=== PATIENT | female | born 1975 | race Caucasian/White ===

== ENCOUNTER 2020-11-19 17:44 | Emergency (ER) | payer OTHER, SELFPAY ==
--- NOTE | ~2020-11-19 | XR_ITS ---
EXAMINATION: XR thoracic spine 3V EXAM DATE: 11/19/2020 19:08 INDICATION: Mid back pain. TECHNIQUE: Frontal and lateral projections of the chest obtained and reviewed. There is no prior jan dy for comparison. FINDINGS: There is mild thoracic disc disease. The vertebral bodies are aligned in the AP dimension. Vertebral body and disc heights are well-maintained. There are no bony erosions identified. There ar e no acute fractures identified. Paraspinal soft tissue is unremarkable. IMPRESSION: Mild thoracic disc disease. No acute findings. Reviewed, dictated and finalized at location A. DENT SERVICES SUPERVISOR
[2020-11-19 17:55] VITALS: BP 125/83; PULSE 70; RESP 20; TEMP 36.6; O2SAT 100
--- NOTE | 2020-11-19 18:13 | ED.BACK ---
HPI - Back Pain/Injury General Chief Complaint: Back Pain/Injury Stated Complaint: back pain Time Seen by Provider: 11/19/20 18:13 Source: patient Mode of arrival: ambulatory Limitations: no limitations History of Present Illness HPI Narrative: 45-year-old woman comes in today complaining of back pain that started this afternoon while she was full doing and putting wet clothes. She denies any recent falls or injuries. She states the pain is more on the left and is worse with taking a deep breath, coughing and with movement. Patient states that she has a history of low back pain but no history of back surgery. She denies any numbness or tingling and has had no fever, nausea, vomiting, cough or cold symptoms, dysuria, hematuria, abdominal pain or chest pain. MD elicited complaint: back pain Pertinent past history: prior back pain Onset (ago): hour(s) (6) Timing: constant Severity: severe Similar Symptoms Previously: No Quality: sharp and aching Location: thoracic spine Radiation: none Exacerbating factors: movement, deep breaths and coughing/sneezing Related Data Home Medications Medication Instructions Recorded Confirmed aspirin 81 mg PO DAILY 09/29/19 11/19/20 atorvastatin 20 mg PO DAILY 09/29/19 11/19/20 clopidogrel [Plavix] 75 mg PO DAILY 09/29/19 11/19/20 nitroglycerin 0.4 mg SUBLINGUAL Q5M PRN 09/29/19 11/19/20 pantoprazole 40 mg PO QAM 09/29/19 11/19/20 tramadol 50 mg PO Q6H PRN 09/29/19 11/19/20 albuterol sulfate 1 - 2 puff INHALATION QID 11/19/20 11/19/20 amlodipine 10 mg PO DAILY 11/19/20 11/19/20 fluoxetine 40 mg PO DAILY 11/19/20 11/19/20 Allergies Allergy/AdvReac Type Severity Reaction Status Date / Time No Known Allergies Allergy Unverified 06/11/18 10:57 Review of Systems Constitutional: Constitutional: Denies chills and Denies fever(s) ENT: Denies nasal congestion and Denies sore throat Cardiovascular: Cardiovascular: Reports chest pain and Reports radiating jaw, neck or arm pain Respiratory: Respiratory: Denies cough, Denies dyspnea and Denies wheezing Gastrointestinal: Gastrointestinal: Denies abdominal pain, Reports constipation, Denies nausea and Denies vomiting Genitourinary: Genitourinary: Denies nocturia and Denies dysuria Musculoskeletal: Musculoskeletal: Reports back pain, Denies arthralgias and Denies joint swelling Integumentary/Breasts: Skin/Breast: Denies pruritus, Denies erythema and Denies rash Neurologic: Denies vertigo, Denies dizziness and Denies syncope Hematologic/Lymphatic: Hematologic/Lymphatic: Denies easy bleeding and Denies easy bruising Allergic/Immunologic: Allergic/Immunologic: Denies lip swelling and Denies throat swelling PMFSH Past Medical History Medical History CAD (coronary artery disease) Dyslipidemia Hypertension Surgical History Surgical History History of coronary artery stent placement Social History Social History Smoking status: Current every day smoker Alcohol intake: never Substance use: never Exam Const: General: alert Nutritional Appearance: obese Orientation/consciousness: patient oriented x3 Other: Moderate to severe acute distress. HENMT: Throat: posterior oropharynx normal Eyes: Conjunctivae: conjunctivae normal Pupils: Equal, round and reactive pupils present EOM: EOMs intact bilaterally Resp: Effort & Inspection: normal respiratory effort and not labored Auscultation: no rales, no rhonchi and no wheezes Cardio: Rate: regular rate Rhythm: regular rhythm Heart sounds: no murmurs GI: Inspection: non-distended Auscultation: normal bowel sounds Other: nontender Skin: General skin exam: normal color, no jaundice and no pallor Rashes: no rashes Neuro: General: patient oriented x3, moves all extremities, no focal motor deficits and CN's II-X
[2020-11-19] MEDS: ONDANSETRON INJ 4 MG/2 ML VIAL IV PUSH (18:39)
[2020-11-19] MEDS: HYDROmorphone HCL INJ (*CRX) 2 MG/ML VIAL 0.5 MG IV PUSH (18:39)
[2020-11-19 19:26] LABS: Add Urine Microscopic? NO; Appearance Urine Clear (Clear); Bilirubin Urine Negative (Negative); Blood Urine Negative (Negative); Color Urine Yellow (Yellow); Glucose Urine UA Negative (Negative); Ketones Urine Negative (Negative); Leukocyte Esterase Ur Negative (Negative); Nitrate Urine Negative (Negative); Protein Urine Negative (Negative); pH Urine 6.5 (5.0-8.0)
[2020-11-19 19:43] VITALS: BP 119/91; PULSE 82; RESP 20; TEMP 36.6; O2SAT 97
== END 2020-11-19 19:52 | disposition home or self-care (01) ==
PROVIDERS: Emergency Provider Emergency Medicine; PCP Family Medicine
DX: M54.6 Pain in thoracic spine (principal)
CPT/HCPCS: 72072; 81003; 96374; 96375; 99283; 99284; J1170; J2405

== ENCOUNTER 2021-01-03 04:51 | Emergency (ER) | payer OTHER, SELFPAY ==
--- NOTE | ~2021-01-03 | XR_ITS ---
EXAMINATION: XR chest 1V portable INDICATION: Chest pain TECHNIQUE: Portable AP chest at 0600 hours COMPARISON: 09/29/2019 FINDINGS: The lungs are free of acute opacities. There is no pleural effusion or pneumothorax. The ca rdiomediastinal silhouette is normal. IMPRESSION: 1. No acute cardiopulmonary abnormality. Reviewed, dictated and finalized at location A. GRATED MARKETING SPECIALIST
--- NOTE | 2021-01-03 04:53 | ECG_ITS ---
Measurements Intervals [place] Rate: 67 P: 40 VT: 162 QRS: 22 QRSD: 92 T: 39 QT: 404 QTc: 427 Interpretive Statements SINUS RHYTHM BASELINE ARTIFACT- I, III, AVL, AVF, V4 NORMAL ECG Electronically Signed On 01-03-2021 8:05:38 MUTUAL FUND ANALYST by Akhil Wasserman D.O.
[2021-01-03 05:00] VITALS: BP 109/73; PULSE 69; RESP 20; TEMP 36.3; O2SAT 96
--- NOTE | 2021-01-03 05:23 | ED.CHESTPAIN ---
HPI - Chest Pain General Chief Complaint: Chest Pain Stated Complaint: chest pain Source: patient Mode of arrival: EMS Limitations: no limitations History of Present Illness HPI narrative: Pt woke up around 3 am with chest pain. She got up and tried nitro and baking soda and milk and none of those 3 helped the pain. She hasnt had n/v/diaphorsis. SHe has been having some SOB for last 2-3 days. She also had some diarrhea yesterday, but that is better now. SHe denies fevers or cough. she has had stents placed in the past. She tells me her angina was ore painful than this, and her current pain is more pressure in the mid chest. She does have some radiation of pain to her back. MD complaint: chest pain and chest heaviness Pertinent past history: coronary artery disease Onset (ago): hour(s) Timing of current episode: constant Prior episodes: Yes Onset: during rest Pain location: substernal Pain radiation: back and left shoulder Quality: heaviness Relieving factors: nothing Exacerbating factors: nothing Context: recent illness Treatment prior to arrival: aspirin and nitroglycerin Risk Factors Coronary artery disease risk factors: smoking history, hyperlipidemia and hypertension Thoracic aortic dissection risk factors: longstanding hypertension Related Data Home Medications Medication Instructions Recorded Confirmed aspirin 81 mg PO DAILY 09/29/19 01/03/21 atorvastatin 40 mg PO HS 09/29/19 01/03/21 clopidogrel [Plavix] 75 mg PO DAILY 09/29/19 01/03/21 nitroglycerin 0.4 mg SUBLINGUAL Q5M PRN 09/29/19 01/03/21 pantoprazole 40 mg PO QAM 09/29/19 01/03/21 albuterol sulfate 1 - 2 puff INHALATION QID PRN 11/19/20 01/03/21 amlodipine 10 mg PO DAILY 11/19/20 01/03/21 fluoxetine 40 mg PO DAILY 11/19/20 01/03/21 Allergies Allergy/AdvReac Type Severity Reaction Status Date / Time No Known Allergies Allergy Unverified 06/11/18 10:57 Review of Systems Constitutional: Constitutional: Reports no additional constitutional complaints Eyes: Eyes: Reports no additional eye complaints ENT: Reports system reviewed and no additional complaints, except as documented Cardiovascular: Cardiovascular: Reports chest pain, Denies rapid heart rate, Reports radiating jaw, neck or arm pain and Denies slow heart rate Respiratory: Respiratory: Reports no additional respiratory complaints, Denies chest congestion, Denies cough, Reports dyspnea and Denies wheezing Gastrointestinal: Gastrointestinal: Denies abdominal pain, Denies bloating, Denies constipation, Reports heartburn, Reports diarrhea, Denies nausea and Denies vomiting Genitourinary: Genitourinary: Reports no additional female genitourinary complaints Musculoskeletal: Musculoskeletal: Reports back pain, Denies myalgias, Denies arthralgias, Denies joint swelling and Denies muscle cramps Integumentary/Breasts: Skin/Breast: Denies breast pain, Denies breast mass, Denies pruritus, Denies erythema, Denies rash and Denies skin ulcer Neurologic: Reports system reviewed and no additional complaints, except as documented Psychiatric: Psychiatric: Reports no additional psychiatric complaints Endocrine: Endocrine: Reports no additional endocrine complaints and Reports as per HPI (pt is having a throid US on friday- pt unsure why) Hematologic/Lymphatic: Hematologic/Lymphatic: Reports no additional hematologic/lymphatic complaints Allergic/Immunologic: Allergic/Immunologic: Reports no additional allergic/immunologic complaints [facility] Past Medical History Medical History CAD (coronary artery disease) Dyslipidemia Hypertension Surgical History Surgical History H/O: hysterectomy History of coronary artery stent placement Hx of breast reduction, elective Social History Social History Smoking status: Current every day smoker
[2021-01-03 05:29] LABS: Basophils Absolute Auto 0.06 K/mm3 (0.00-0.10); Eosinophils Percent Auto 3.2 % (1.0-6.0); Hematocrit 35.5 % (35.0-49.0); Hemoglobin 11.8 g/dL (12.0-15.0); Immature Granulocyte Absolute 0.02 K/mm3 (0.00-0.00); Immature Granulocyte Percent A 0.3 % (0.0-0.0); Lymphocytes Absolute Auto 1.05 K/mm3 (1.10-4.50); Lymphocytes Percent Auto 16.9 % (18.0-42.0); Mean Corpuscular HGB Conc 33.2 g/dL (32.0-36.0); Mean Corpuscular Hemoglobin 28.6 pg (27.0-31.0); Monocytes Percent Auto 6.4 % (2.0-11.0); Neutrophils Absolute Auto 4.5 K/mm3 (1.7-7.2); Neutrophils Percent Auto 72.2 % (50.0-70.0); Platelet Count Result 165 K/mm3 (150-420); Red Blood Count 4.13 M/mm3 (4.20-5.40); Red Cell Distribution Width 12.4 % (11.6-14.4); White Blood Count 6.2 K/mm3 (4.8-10.8)
[2021-01-03 05:42] LABS: D Dimer 0.37 mg/L (0.19-0.50)
[2021-01-03 05:46] LABS: Alanine Aminotransferase 17 U/L (14-59); Albumin Level 3.1 g/dL (3.4-5.0); Alkaline Phosphatase 78 U/L (46-116); Anion Gap 5 mmol/L (8-16); Aspartate Amino Transferase 20 U/L (15-37); Bilirubin,Total 0.3 mg/dL (0.00-1.00); Blood Urea Nitrogen 9 mg/dL (7-18); Calcium 8.3 mg/dL (8.5-10.1); Carbon Dioxide 31 mmol/L (21-32); Chloride 104 mmol/L (98-108); Estimated CRCL calculation 96 ml/min; Estimated Glomerular Filt Rate > 60; Glucose 111 mg/dL (70-99); Osmolality Calculated 289 mOsm/kg (285-295); Potassium 3.3 mmol/L (3.5-5.1); Sodium 140 mmol/L (136-145); Troponin I 5.7 ng/L (0.00-60.4)
[2021-01-03 06:10] LABS: Add Urine Microscopic? NO; Appearance Urine Clear (Clear); Bilirubin Urine Negative (Negative); Blood Urine Negative (Negative); Color Urine Yellow (Yellow); Glucose Urine UA Negative (Negative); Ketones Urine Negative (Negative); Leukocyte Esterase Ur Negative LEU/UL (Negative); Nitrate Urine Negative (Negative); Protein Urine Negative (Negative); Urobilinogen Urine 0.2 mg/dL (0.2-1.0); pH Urine 6.5 (5.0-8.0)
[2021-01-03 06:28] VITALS: BP 96/65; PULSE 71; RESP 20; O2SAT 96
[2021-01-03 06:28] LABS: SARS-CoV-2 Ag Negative (Negative)
[2021-01-03] MEDS: POTASSIUM CHLORIDE 20 MEQ TABLET 40 MEQ PO (06:41)
--- NOTE | 2021-01-03 06:42 | PC.NURSE ---
pt. snoring upon entering room, no distress noted and easily awakened. Discussed test results c pt. and need for repeat troponin at 0800. Mon. shows SR c vss.
--- NOTE | 2021-01-03 07:11 | PC.NURSE ---
Report given to MARQUITA Gallo
--- NOTE | 2021-01-03 07:30 | PC.NURSE ---
REPORT RECEIVED FROM OFFGOING RN. PT IS SLEEPING QUIETLY IN ROOM 2. RN SPOKE WITH LIANG AND PROVIDED UPDATE ON PATIENT STATUS.
--- NOTE | 2021-01-03 08:24 | PC.NURSE ---
0803 patient fiance at bedside. lab contacted for troponin draw. pt is alert and oriented, answering all questions appropraitely. vital signs are stable. pt denies complaints. beverages provided.
[2021-01-03 08:32] LABS: Troponin I 4.1 ng/L (0.00-60.4)
[2021-01-03 08:45] VITALS: BP 103/67; PULSE 70; RESP 14; TEMP 36.6; O2SAT 100
--- NOTE | 2021-01-03 08:47 | ED.GENADULT ---
HPI - General Adult General Chief complaint: Chest Pain Stated complaint: chest pain Source: patient Mode of arrival: EMS Limitations: no limitations History of Present Illness HPI narrative: Annette presented to the ED with chest pain. Please see Dr. Holly's note for details. I resumed care at 0700. Related Data Home Medications Medication Instructions Recorded Confirmed aspirin 81 mg PO DAILY 09/29/19 01/03/21 atorvastatin 40 mg PO HS 09/29/19 01/03/21 clopidogrel [Plavix] 75 mg PO DAILY 09/29/19 01/03/21 nitroglycerin 0.4 mg SUBLINGUAL Q5M PRN 09/29/19 01/03/21 pantoprazole 40 mg PO QAM 09/29/19 01/03/21 albuterol sulfate 1 - 2 puff INHALATION QID PRN 11/19/20 01/03/21 amlodipine 10 mg PO DAILY 11/19/20 01/03/21 fluoxetine 40 mg PO DAILY 11/19/20 01/03/21 Allergies Allergy/AdvReac Type Severity Reaction Status Date / Time No Known Allergies Allergy Unverified 06/11/18 10:57 Review of Systems Constitutional: Constitutional: Reports no additional constitutional complaints Eyes: Eyes: Reports no additional eye complaints ENT: Reports system reviewed and no additional complaints, except as documented Cardiovascular: Comments: No CP, SOB or lightheadedness at this time. Respiratory: Respiratory: Reports no additional respiratory complaints Gastrointestinal: Gastrointestinal: Reports no additional gastrointestinal complaints Genitourinary: Genitourinary: Reports no additional female genitourinary complaints Musculoskeletal: Musculoskeletal: Reports no additional musculoskeletal complaints Integumentary/Breasts: Skin/Breast: Reports system reviewed and no additional complaints, except as docu Neurologic: Reports system reviewed and no additional complaints, except as documented Psychiatric: Psychiatric: Reports no additional psychiatric complaints Endocrine: Endocrine: Reports no additional endocrine complaints Hematologic/Lymphatic: Hematologic/Lymphatic: Reports no additional hematologic/lymphatic complaints Allergic/Immunologic: Allergic/Immunologic: Reports no additional allergic/immunologic complaints [facility] Past Medical History Medical History CAD (coronary artery disease) Dyslipidemia Hypertension Surgical History Surgical History H/O: hysterectomy History of coronary artery stent placement Hx of breast reduction, elective Social History Social History Smoking status: Current every day smoker Alcohol intake: never Substance use: never Exam Const: General: cooperative, healthy appearing, comfortable, no acute distress, well developed, alert, awake and Physically active; No confusion Orientation/consciousness: oriented to person, oriented to place, oriented to time and No confusion HENMT: Head: normal to inspection, normocephalic and atraumatic Ears: hearing grossly normal bilaterally and external ears normal General nose exam: Normal external nose present Eyes: General: appearance normal, both eyes and all related structures Periorbital: periorbital findings normal Sclera: sclerae normal Pupils: Equal, round and reactive pupils present Resp: Effort & Inspection: normal respiratory effort, able to speak in complete sentences and no respiratory distress Auscultation: clear to auscultation bilaterally Cardio: Jugular venous distension: no JVD Rate: regular rate Rhythm: regular rhythm Skin: General skin exam: normal color and no rashes or lesions noted Neuro: General: oriented to person, oriented to place, oriented to time and No confusion Cranial nerves: Yes Equal, round and reactive pupils present and No Normal hearing present Extrem: General: normal to inspection Course Course Emergency Course: Care resumed at 0700. Troponin returned and was wnl. She reported no chest pain, SOB or lightheadedness at th
== END 2021-01-03 08:50 | disposition home or self-care (01) ==
PROVIDERS: Emergency Provider Emergency Medicine
DX: R07.9 Chest pain, unspecified (principal); Z20.822 Contact with and (suspected) exposure to COVID-19
CPT/HCPCS: 36415; 71045; 80053; 81003; 84484; 85025; 85380; 87426; 93005; 99283; 99284; A9270; C9803

== ENCOUNTER 2022-10-05 11:50 | Emergency (ER) | payer OTHER, SELFPAY ==
[2022-10-05 12:36] VITALS: BP 131/66; PULSE 66; RESP 20; TEMP 36.6; O2SAT 100
--- NOTE | 2022-10-05 12:46 | PC.NURSE ---
personal items collected and placed in secure room.
[2022-10-05 12:53] LABS: Basophils Absolute Auto 0.04 K/mm3 (0.00-0.10); Basophils Percent Auto 0.7 % (0.0-1.0); Eosinophils Absolute Auto 0.18 K/mm3 (0.02-0.50); Eosinophils Percent Auto 3.3 % (1.0-6.0); Hematocrit 40.5 % (35.0-49.0); Hemoglobin 13.4 g/dL (12.0-15.0); Immature Granulocyte Absolute 0.02 K/mm3 (0.00-0.00); Immature Granulocyte Percent A 0.4 % (0.0-0.0); Lymphocytes Absolute Auto 1.81 K/mm3 (1.10-4.50); Lymphocytes Percent Auto 32.8 % (18.0-42.0); Mean Corpuscular HGB Conc 33.1 g/dL (32.0-36.0); Mean Corpuscular Hemoglobin 28.6 pg (27.0-31.0); Mean Corpuscular Volume 86.5 fL (78.0-102.0); Mean Platelet Volume 11.2 fl (9.2-11.8); Monocytes Percent Auto 7.2 % (2.0-11.0); Neutrophils Absolute Auto 3.1 K/mm3 (1.7-7.2); Neutrophils Percent Auto 55.6 % (50.0-70.0); Platelet Count Result 184 K/mm3 (150-420); Red Blood Count 4.68 M/mm3 (4.20-5.40); Red Cell Distribution Width 12.9 % (11.6-14.4); White Blood Count 5.5 K/mm3 (4.8-10.8)
--- NOTE | 2022-10-05 12:55 | ECG_ITS ---
Measurements Intervals [place] Rate: 66 P: 55 CO: 169 QRS: 53 QRSD: 86 T: 49 QT: 405 QTc: 425 Interpretive Statements SINUS RHYTHM NORMAL ECG COMPARED TO ECG 01/03/2021 04:58:01 NO SIGNIFICANT CHANGES Electronically Signed On 10-06-2022 8:44:50 UNDERGROUND REPAIRER by Issa Clark M.D.
[2022-10-05 13:07] LABS: Add Urine Microscopic? NO; Appearance Urine Clear (Clear); Bilirubin Urine Negative (Negative); Blood Urine Negative (Negative); Color Urine Light Yellow (Yellow); Glucose Urine UA Negative (Negative); Ketones Urine Negative (Negative); Leukocyte Esterase Ur Negative LEU/UL (Negative); Nitrate Urine Negative (Negative); Protein Urine Negative (Negative)
[2022-10-05 13:13] LABS: Amphetamine Screen Urine Negative (Negative); Barbiturate Screen Urine Negative (Negative); Benzodiazepines Screen Urine Negative (Negative); Cannabinoid Screen Urine Negative (Negative); Cocaine Screen Urine Negative (Negative); Methadone Screen Urine Negative (Negative); Opiate Screen Urine Negative (Negative); Phencyclidine Screen Urine Negative (Negative)
[2022-10-05 13:20] LABS: Alanine Aminotransferase 34 U/L (14-59); Albumin Level 3.7 g/dL (3.4-5.0); Alkaline Phosphatase 95 U/L (46-116); Anion Gap 5 mmol/L (8-16); Aspartate Amino Transferase 22 U/L (15-37); Bilirubin,Total 0.4 mg/dL (0.00-1.00); Blood Urea Nitrogen 6 mg/dL (7-18); Calcium 8.3 mg/dL (8.5-10.1); Carbon Dioxide 30 mmol/L (21-32); Chloride 108 mmol/L (98-108); Estimated CRCL calculation 89 ml/min; Estimated Glomerular Filt Rate > 60; Ethanol 3 mg/dL (0-6); Glucose 82 mg/dL (70-99); Osmolality Calculated 292 mOsm/kg (285-295); Potassium 3.7 mmol/L (3.5-5.1); Salicylate 3.2 mg/dL (2.8-20.0); Sodium 143 mmol/L (136-145); Thyroid Stimulating Hormone 1.33 uIU/mL (0.36-3.74); Total Protein 7.1 g/dL (6.4-8.2)
[2022-10-05 13:22] LABS: SARS-CoV-2 Ag Negative (Negative)
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
--- NOTE | 2022-10-05 14:08 | PC.NURSE ---
[id number] [facility] notified and on there way
--- NOTE | 2022-10-05 15:21 | PC.NURSE ---
1516 [facility] here for screening
--- NOTE | 2022-10-05 16:52 | PC.NURSE ---
[id number] packet faxed to [facility] for [facility]pt admission will wait to here for availability
--- NOTE | 2022-10-05 19:22 | PC.NURSE ---
1919 nurse to nurse report given to Royal rn pt sleeping and resting quietly
[2022-10-05 21:18] LABS: SARS-CoV-2 RNA PCR Negative (Negative)
[2022-10-05 22:00] VITALS: BP 115/88; PULSE 66; RESP 20; TEMP 36.7; O2SAT 100
== END 2022-10-05 22:58 ==
PROVIDERS: Emergency Provider Emergency Medicine; PCP Family Medicine
DX: R45.851 Suicidal ideations (principal); F41.9 Anxiety disorder, unspecified; F32.A Depression, unspecified; I25.10 Atherosclerotic heart disease of native coronary artery without angina pectoris; I10 Essential (primary) hypertension; E78.5 Hyperlipidemia, unspecified; Z95.5 Presence of coronary angioplasty implant and graft; F17.200 Nicotine dependence, unspecified, uncomplicated; Z79.02 Long term (current) use of antithrombotics/antiplatelets; Z79.51 Long term (current) use of inhaled steroids; Z20.822 Contact with and (suspected) exposure to COVID-19
CPT/HCPCS: 36415; 80053; 80307; 81003; 84443; 85025; 87426; 93005; 99285; C9803; U0003; U0005

== ENCOUNTER 2023-06-22 15:35 | Emergency (ER) | payer OTHER, SELFPAY ==
[2023-06-22] VITALS (18 sets, daily range): BP systolic 125–155; BP diastolic 79–98; PULSE 79–105; RESP 12–20; TEMP 36.4; O2SAT 93–100
--- NOTE | ~2023-06-22 | XR_ITS ---
EXAMINATION: XR chest 2V DATE: 06/22/2023 16:08 INDICATION: Shortness of breath and left-sided chest pain TECHNIQUE: PA and lateral views of the chest were obtained. COMPARISON: None FINDINGS: The lungs are clear with no focal airspace opacities, pulmonary edema, pleural effusion or pneumothor ax. The cardiomediastinal silhouette is normal. Visualized bones and soft tissues are unremarkable. IMPRESSION: 1. No acute cardiopulmonary disease. Reviewed, dictated and finalized at location A.
--- NOTE | 2023-06-22 15:47 | ED.CHESTPAIN ---
HPI - Chest Pain General Chief Complaint: Chest Pain Stated Complaint: chest pain Time Seen by Provider: 06/22/23 15:40 Source: patient Mode of arrival: ambulatory Limitations: no limitations History of Present Illness HPI narrative: 48 yo F with PMHx of CAD, s/p stent placement in 2017, and angiography last year with some additional mild blockage, GERD, presents to ED due to severe, right sided, chest pain for 3 days, a/w shortness of breath and nausea. The pain is rated at 8/10 and some times woke her up from sleep. 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 Onset (ago): day(s) Timing of current episode: constant Prior episodes: Yes Onset: during rest Pain location: substernal and right chest Pain radiation: none Severity: severe Pain scale (0-10): 8 Quality: heaviness Relieving factors: nothing Exacerbating factors: inspiration, movement and stress Associated symptoms: nausea, vomiting and dyspnea Treatment prior to arrival: aspirin and nitroglycerin Risk Factors Coronary artery disease risk factors: hyperlipidemia and hypertension Thoracic aortic dissection risk factors: none Related Data On Oral Contraceptives: No Home Medications Medication Instructions Recorded Confirmed atorvastatin 20 mg tablet 40 mg PO HS 09/29/19 10/05/22 clopidogrel 75 mg tablet (Plavix) 75 mg PO DAILY 09/29/19 10/05/22 nitroglycerin 0.4 mg sublingual 0.4 mg sublingual Q5M PRN Chest 09/29/19 10/05/22 tablet Pain pantoprazole 40 mg tablet,delayed 40 mg PO BID 09/29/19 10/05/22 release albuterol sulfate 90 mcg/actuation 1 - 2 puff inhalation QID PRN 11/19/20 10/05/22 aerosol inhaler Shortness Of Breath Or Wheezing amlodipine 10 mg tablet 10 mg PO DAILY 11/19/20 10/05/22 fluoxetine 10 mg capsule 10 mg PO DAILY 08/14/22 10/05/22 fluoxetine 40 mg capsule 80 mg PO DAILY 08/14/22 10/05/22 metoprolol succinate 25 mg 12.5 mg PO DAILY 08/14/22 10/05/22 tablet,extended release 24 hr famotidine 20 mg tablet 20 mg PO DAILY 10/05/22 10/05/22 Allergies Allergy/AdvReac Type Severity Reaction Status Date / Time No Known Allergies Allergy Verified 10/05/22 19:13 Review of Systems Constitutional: Constitutional: Reports as per HPI and Reports no additional constitutional complaints Eyes: Eyes: Reports as per HPI and Reports no additional eye complaints ENT: Reports system reviewed and no additional complaints, except as documented and Reports as per HPI Cardiovascular: Cardiovascular: Reports as per HPI and Reports no additional cardiovascular complaints Respiratory: Respiratory: Reports as per HPI and Reports no additional respiratory complaints Gastrointestinal: Gastrointestinal: Reports as per HPI and Reports no additional gastrointestinal complaints Genitourinary: Genitourinary: Reports as per HPI Musculoskeletal: Musculoskeletal: Reports no additional musculoskeletal complaints and Reports as per HPI Integumentary/Breasts: Skin/Breast: Reports system reviewed and no additional complaints, except as docu and Reports as per HPI Neurologic: Reports system reviewed and no additional complaints, except as documented and Reports as per HPI Psychiatric: Psychiatric: Reports no additional psychiatric complaints and Reports as per HPI Endocrine: Endocrine: Reports no additional endocrine complaints and Reports as per HPI Hematologic/Lymphatic: Hematologic/Lymphatic: Reports no additional hematologic/lymphatic complaints and Reports as per HPI Allergic/Immunologic: Allergic/Immunologic: Reports no additional allergic/immunologic complaints and Reports as per HPI [facility] Past Medical History Medical History CAD (coronary
--- NOTE | 2023-06-22 15:49 | ECG_ITS ---
Measurements Intervals [place] Rate: 82 P: 32 VT: 170 QRS: 3 QRSD: 87 T: 41 QT: 387 QTc: 452 Interpretive Statements SINUS RHYTHM NORMAL ECG COMPARED TO ECG 10/05/2022 12:55:55 NO SIGNIFICANT CHANGES Electronically Signed On 06-23-2023 12:08:06 CDT by You Prado M.D.
--- NOTE | 2023-06-22 15:55 | PC.NURSE ---
PT STATES TOOK ASPIRIN AND 2 NITRO THIS MORNING AROUND 9AM WITH NO CHANGE.
[2023-06-22] MEDS: ASPIRIN 81 MG CHEWABLE TABLET 243 MG PO (16:18)
[2023-06-22] MEDS: MORPHINE SULFATE (*CRX) 4 MG/ML INJ IV PUSH (16:21)
[2023-06-22 16:25] LABS: Basophils Absolute Auto 0.04 K/mm3 (0.00-0.10); Basophils Percent Auto 0.8 % (0.0-1.0); Eosinophils Absolute Auto 0.26 K/mm3 (0.02-0.50); Hemoglobin 13.1 g/dL (12.0-15.0); Immature Granulocyte Absolute 0.01 K/mm3 (0.00-0.00); Immature Granulocyte Percent A 0.2 % (0.0-0.0); Lymphocytes Absolute Auto 1.39 K/mm3 (1.10-4.50); Lymphocytes Percent Auto 26.6 % (18.0-42.0); Mean Corpuscular HGB Conc 32.8 g/dL (32.0-36.0); Mean Corpuscular Hemoglobin 28.3 pg (27.0-31.0); Mean Corpuscular Volume 86.4 fL (78.0-102.0); Mean Platelet Volume 11.1 fl (9.2-11.8); Monocytes Absolute Auto 0.32 K/mm3 (0.10-0.90); Monocytes Percent Auto 6.1 % (2.0-11.0); Neutrophils Absolute Auto 3.2 K/mm3 (1.7-7.2); Neutrophils Percent Auto 61.3 % (50.0-70.0); Platelet Count Result 200 K/mm3 (150-420); Red Blood Count 4.63 M/mm3 (4.20-5.40); Red Cell Distribution Width 13.2 % (11.6-14.4); White Blood Count 5.2 K/mm3 (4.8-10.8)
[2023-06-22 16:39] LABS: D Dimer 0.35 mg/L (0.19-0.50); Partial Thromboplastin Time 27.3 SEC (23.90-30.70); Prothrombin Time 10.5 Seconds (9.50-12.10)
--- NOTE | 2023-06-22 17:02 | PC.NURSE ---
PT UP TO BATHROOM WITH STAFF.
[2023-06-22 17:06] LABS: Alanine Aminotransferase 57 U/L (14-59); Albumin Level 3.6 g/dL (3.4-5.0); Alkaline Phosphatase 93 U/L (46-116); Anion Gap 8 mmol/L (8-16); Aspartate Amino Transferase 37 U/L (15-37); Bilirubin,Total 0.4 mg/dL (0.00-1.00); Blood Urea Nitrogen 6 mg/dL (7-18); Calcium 8.8 mg/dL (8.5-10.1); Carbon Dioxide 29 mmol/L (21-32); Chloride 103 mmol/L (98-108); Estimated Glomerular Filt Rate > 60; Glucose 111 mg/dL (70-99); NT Pro B Type Natriuretic Pept 23 pg/mL (0-125); Osmolality Calculated 288 mOsm/kg (285-295); Potassium 3.7 mmol/L (3.5-5.1); Sodium 140 mmol/L (136-145); Troponin I 4.4 ng/L (0.00-60.4)
[2023-06-22] MEDS: MAG HYDROX/ALUMINUM HYD/SIMETH 30 ML, PHENobarb/HYOSCY/ATROPINE/SCOP 32.4 MG, LIDOCAINE... PO (17:07)
[2023-06-22 17:17] LABS: Appearance Urine Clear (Clear); Bilirubin Urine Negative (Negative); Blood Urine Trace-Intact (Negative); Color Urine Light Yellow (Yellow); Glucose Urine UA Negative (Negative); Ketones Urine Negative (Negative); Leukocyte Esterase Ur Negative LEU/UL (Negative); Nitrate Urine Negative (Negative); Protein Urine Negative (Negative); Specific Grav Ur <= 1.005 (1.010-1.020); Urobilinogen Urine 0.2 mg/dL (0.2-1.0)
[2023-06-22 17:24] LABS: Add Urine Microscopic? YES; Amorphous Sediment Urine Few; RBC Urine 0-2 /hpf (0-2); Squamous Epithelial Cell Urine Few /hpf (Few)
--- NOTE | 2023-06-22 17:39 | PC.NURSE ---
PT USING CELL PHONE, STATES PAIN IS 5/10
== END 2023-06-22 18:15 | disposition home or self-care (01) ==
PROVIDERS: Emergency Provider Emergency Medicine; PCP Family Medicine
DX: M94.0 Chondrocostal junction syndrome [Tietze] (principal); I25.10 Atherosclerotic heart disease of native coronary artery without angina pectoris; E78.5 Hyperlipidemia, unspecified; I10 Essential (primary) hypertension; F17.200 Nicotine dependence, unspecified, uncomplicated
CPT/HCPCS: 36415; 71046; 80053; 81001; 83880; 84484; 85025; 85380; 85610; 85730; 93005; 96374; 99284; A9270; J2270

== ENCOUNTER 2024-04-13 16:36 | Observation (INO) | payer OTHER, SELFPAY ==
[2024-04-13] VITALS (22 sets, daily range): BP systolic 89–108; BP diastolic 50–77; PULSE 55–73; RESP 10–20; TEMP 36.2–36.6; O2SAT 91–100; BMI 40.6
--- NOTE | ~2024-04-13 | CT_ITS ---
EXAMINATION: CTA chest abdomen pelvis DATE: 04/14/2024 10:33 INDICATION: Chest pain. Upper abdominal pain. TECHNIQUE: Computed tomographic angiography (CTA) of the chest, abdomen, and pelvis was performed wit h 100 mL Omnipaque-350 intravenous contrast. Automated exposure control and iterative reconstruction technique were employed. The dose-length product was 1610.18 mGy-cm. Maximum intensity projection 3D- reconstructions of the aorta and other arteries were constructed by the technologist on a separate wo rkstation. COMPARISON: None. FINDINGS: CHEST CTA: The lungs demonstrate mild atelectasis. A calcified left lung nodule and calcified right hilar medias tinal lymph nodes are consistent with old granulomatous disease. No pleural effusion. Cardiomegaly is noted. No pericardial effusion. There is mild aortic atherosclerosis. No aneurysm or dissection. The re is no pulmonary embolus. There is mild thoracic spondylosis. There is mild chronic anterior wedgin g of multiple vertebral bodies. ABDOMEN AND PELVIS CTA: The liver is normal. The gallbladder is contracted. The spleen, pancreas, adrenal glands, and kidneys are normal. There is diverticulosis of the colon without evidence of diverticulitis. The appendix is normal. There are no dilated loops of bowel. There are no pathologically enlarged lymph nodes. There is no free intraperitoneal fluid. The abdominal aorta is normal. There is no significant stenosis of celiac axis, superior mesenteric artery, the renal arteries, or inferior mesenteric artery. There is mild lumbar spondylosis. IMPRESSION: 1. Mild aortic atherosclerosis. No aneurysm or dissection. Reviewed, dictated and finalized at location A.
--- NOTE | ~2024-04-13 | XR_ITS ---
EXAMINATION: XR chest 1V portable Exam Date/Time: 04/13/2024 17:28 CDT HISTORY: chest pain Comparison: 06/22/2023. RESULT: Lines, tubes, and devices: None. Lungs and pleura: Calcified right lower lung granuloma, otherwise clear. Cardiomediastinal silhouette: Stable. Other: No acute osseous or upper abdominal finding. IMPRESSION: No acute cardiopulmonary process. Reviewed, dictated and finalized at location K.
--- NOTE | 2024-04-13 16:43 | ECG_ITS ---
Test Date: 2024-04-13 16:47:52 Measurements Intervals [place] Rate: 72 P: 49 AL: 168 QRS: 41 QRSD: 90 T: 59 QT: 397 QTc: 436 Interpretive Statements SINUS RHYTHM No previous ECG available for comparison Electronically Signed On 04-14-2024 14:22:23 CDT by Frandy Staley M.D.
--- NOTE | 2024-04-13 16:44 | ED.GENADULT ---
HPI - General Adult General Chief complaint: Chest Pain Stated complaint: chest pain Time Seen by Provider: 04/13/24 16:43 History of Present Illness HPI narrative: the patient is a 48-year-old woman with history of coronary artery disease status post stent in 2017 in the left circumflex at [facility]. Other comorbidities include obesity, hypertension, hyperlipidemia, GERD. Prior hysterectomy. She has had previous episodes of chest pain most recently a few months ago when she was seen at [facility] emergency room, had a workup, was discharged home. She had seen a seizure in 2022 for similar chest pain episodes which resulted in her going home afterwards. Roentgenology Teacher is Dr. Padilla at [facility] [place]. She takes aspirin 81 mg daily as well as clopidogrel 75 mg daily Today, at 3:30 p.m., approximately 1 hour ago, the patient developed substernal chest heaviness and tightness, radiating to the epigastric region, associated with burping, nausea, and diaphoresis. She took 1 nitroglycerin at home without relief of her symptoms. Her symptoms persist. There is no radiation of the chest discomfort to the neck jaw shoulders arms. She does have mild back pain. No shortness of breath or cough or URI symptoms. no emesis. no chest wall tenderness. No pleuritic component to the chest discomfort. Related Data Home Medications Medication Instructions Recorded Confirmed atorvastatin 20 mg tablet 40 mg PO HS 09/29/19 04/13/24 clopidogrel 75 mg tablet (Plavix) 75 mg PO DAILY 09/29/19 04/13/24 nitroglycerin 0.4 mg sublingual 0.4 mg sublingual Q5M PRN Chest 09/29/19 04/13/24 tablet Pain pantoprazole 40 mg tablet,delayed 40 mg PO BID 09/29/19 04/13/24 release albuterol sulfate 90 mcg/actuation 1 - 2 puff inhalation QID PRN 11/19/20 04/13/24 aerosol inhaler Shortness Of Breath Or Wheezing fluoxetine 10 mg capsule 10 mg PO DAILY 08/14/22 04/13/24 fluoxetine 40 mg capsule 80 mg PO DAILY 08/14/22 04/13/24 metoprolol succinate 25 mg 12.5 mg PO DAILY 08/14/22 04/13/24 tablet,extended release 24 hr famotidine 20 mg tablet 20 mg PO DAILY 10/05/22 04/13/24 amlodipine 5 mg tablet 5 mg PO DAILY 04/13/24 04/13/24 aripiprazole 10 mg tablet 10 mg PO DAILY 04/13/24 04/13/24 aspirin 81 mg chewable tablet 81 mg PO DAILY 04/13/24 04/13/24 hydroxyzine HCl 50 mg tablet 50 mg PO TID 04/13/24 04/13/24 Allergies Allergy/AdvReac Type Severity Reaction Status Date / Time No Known Allergies Allergy Verified 04/13/24 16:41 Review of Systems Review of Systems: All systems reviewed & are unremarkable except as noted in HPI and below Constitutional: Constitutional: Denies chills, Reports excessive sweating ( diaphoresis with this chest discomfort, no longer diaphoretic), Denies fatigue, Denies fever(s), Denies headache(s) and Denies weakness Eyes: Eyes: Denies change in vision and Denies photophobia ENT: Denies dysphagia, Denies dizziness, Denies headache(s), Denies lip swelling, Denies nasal congestion, Denies sore throat and Denies tongue swelling Cardiovascular: Cardiovascular: Reports chest pain ( chest pressure and tightness in the substernal region), Denies syncope, Denies rapid heart rate and Denies dyspnea Respiratory: Respiratory: Denies cough, Denies dyspnea and Denies wheezing Gastrointestinal: Gastrointestinal: Denies abdominal pain, Denies constipation, Denies dysphagia, Denies diarrhea, Reports nausea and Denies vomiting Genitourinary: Genitourinary: Denies hematuria, Denies urinary frequency, Denies dysuria and Denies urinary urgency Musculoskeletal: Musculoskeletal: Denies back pain, Denies myalgias, Denies arthralgias, Denies joint swelling and Denies numbness Integumentary/Breasts: Skin/Breast: Denies pruritus, Denies erythema and Denies rash Neurologic: Denies confusion, Denies dizziness, Denies syncope, Denies headache(s), Denies focal weakness, Denies numbness and Denies weakness Psychiatric: Psychiatric: Denies anxie
[2024-04-13 16:56] LABS: Basophils Absolute Auto 0.05 K/mm3 (0.00-0.10); Basophils Percent Auto 1.1 % (0.0-1.0); Eosinophils Absolute Auto 0.18 K/mm3 (0.02-0.50); Eosinophils Percent Auto 3.9 % (1.0-6.0); Hematocrit 36.2 % (35.0-49.0); Hemoglobin 11.6 g/dL (12.0-15.0); Immature Granulocyte Absolute 0.01 K/mm3 (0.00-0.00); Immature Granulocyte Percent A 0.2 % (0.0-0.0); Lymphocytes Absolute Auto 1.65 K/mm3 (1.10-4.50); Lymphocytes Percent Auto 35.3 % (18.0-42.0); Mean Corpuscular Hemoglobin 27.2 pg (27.0-31.0); Mean Corpuscular Volume 84.8 fL (78.0-102.0); Mean Platelet Volume 11.7 fl (9.2-11.8); Monocytes Absolute Auto 0.32 K/mm3 (0.10-0.90); Monocytes Percent Auto 6.9 % (2.0-11.0); Neutrophils Absolute Auto 2.46 K/mm3 (1.70-7.20); Neutrophils Percent Auto 52.6 % (50.0-70.0); Platelet Count Result 165 K/mm3 (150-420); Red Blood Count 4.27 M/mm3 (4.20-5.40); Red Cell Distribution Width 13.5 % (11.6-14.4); White Blood Count 4.7 K/mm3 (4.8-10.8)
[2024-04-13] MEDS: ONDANSETRON INJ 4 MG/2 ML VIAL IV PUSH (17:07)
[2024-04-13] MEDS: KETOROLAC 30 MG/ML VIAL (*BKC) IV PUSH (17:08)
[2024-04-13 17:09] LABS: D Dimer 0.43 mg/L (0.19-0.50); Partial Thromboplastin Time 26.4 Sec (23.9-30.70); Prothrombin Time 11.1 Seconds (9.50-12.1)
[2024-04-13] MEDS: PANTOPRAZOLE SODIUM IV 40 MG VIAL IV PUSH (17:09)
[2024-04-13] MEDS: MAG HYDROX/ALUMINUM HYD/SIMETH 30 ML, PHENobarb/HYOSCY/ATROPINE/SCOP 32.4 MG, LIDOCAINE... PO (17:11)
[2024-04-13] MEDS: ASPIRIN 81 MG CHEWABLE TABLET 324 MG PO (17:11)
[2024-04-13 17:18] LABS: Alanine Aminotransferase 17 U/L (14-59); Albumin Level 3.2 g/dL (3.4-5.0); Alkaline Phosphatase 80 U/L (46-116); Anion Gap 8 mmol/L (4-12); Aspartate Amino Transferase 18 U/L (15-37); Bilirubin,Total 0.3 mg/dL (0.00-1.00); Blood Urea Nitrogen 7 mg/dL (7-18); Calcium 8.1 mg/dL (8.5-10.1); Carbon Dioxide 28 mmol/L (21-32); Chloride 104 mmol/L (98-108); Estimated CRCL calculation 80 ml/min; Estimated Glomerular Filt Rate > 60; Glucose 124 mg/dL (70-99); NT Pro B Type Natriuretic Pept 47 pg/mL (0-125); Osmolality Calculated 289 mOsm/kg (285-295); Potassium 3.2 mmol/L (3.5-5.1); Sodium 140 mmol/L (136-145); Total Protein 6.2 g/dL (6.4-8.2); Troponin I 5.5 ng/L (0.00-60.4)
--- NOTE | 2024-04-13 17:23 | PC.NURSE ---
PT IS SITTING UP ON STRETCHER, DAUGHTER AT BEDSIDE. MEDICATIONS ADMINISTERED WITHOUT DIFFICULTY. PT IS RESTLESS AND BELCHING. WILL CONTINUE TO MONITOR.
--- NOTE | 2024-04-13 17:56 | PC.NURSE ---
PT IS CURRENTLY RESTING ON STRETCHER, CALM AND REPORTING CHEST IS HEAVY, HOWEVER NO PAIN AT THIS TIME. BELCHING HAS SUBSIDED. DAUGHTER REMAINS AT BEDSIDE. WILL CONTINUE TO MONITOR.
--- NOTE | 2024-04-13 18:30 | PC.NURSE ---
WATER PROVIDED REQUESTED. PT IS TO HAVE TROPONIN REDRAW AT 1900. PT DENIES ANY OTHER NEEDS OR COMPLAINTS, DAUGHTER REMAINS AT BEDSIDE. VSS PER MONITOR. NAD NOTED. WILL CONTINUE TO MONITOR.
[2024-04-13] MEDS: POTASSIUM CHLORIDE 20 MEQ ER TABLET 40 MEQ PO (18:36)
[2024-04-13] MEDS: MORPHINE SULFATE (*CRX) 4 MG/ML INJ IV PUSH (18:36)
[2024-04-13 19:33] LABS: Troponin I 4.6 ng/L (0.00-60.4)
[2024-04-13] MEDS: SODIUM CHLORIDE 0.9% IV 1,000 ML 999 ML IV CONT (19:34)
--- NOTE | 2024-04-13 21:06 | PC.NURSE ---
Pt stable for transfer to floor. Pt taken per stretcher by tech. Handoff given to Brad. 2100
[2024-04-13] MEDS: SODIUM CHLORIDE 0.9% IV 1,000 ML 125 ML IV CONT (21:09)
[2024-04-13] MEDS: ATORVASTATIN 40 MG TABLET PO (21:10)
[2024-04-13] MEDS: hydrOXYzine HCL 25 MG TABLET 50 MG PO (21:10)
--- NOTE | 2024-04-13 21:58 | PC.NURSE ---
2100 PT ARRIVES VIA STRETCHER FROM ER WITH COMPLAINT OF CHEST PAIN AND HEAVINESS. UPON ARRIVAL TO ROOM 203, PT DENIES CHEST PAIN. PT ORIENTED TO ROOM PHONE, CALL CREWS , BED, IV FLUIDS AND MEDICATIONS ORDERED, PT VOICED UNDERSTANDING.
[2024-04-14] VITALS (8 sets, daily range): BP systolic 99–116; BP diastolic 47–74; PULSE 62–70; RESP 16–20; TEMP 35.7–36.6; O2SAT 92–95
[2024-04-14 00:03] LABS: Appearance Urine Clear (Clear); Bilirubin Urine Negative (Negative); Blood Urine Negative (Negative); Color Urine Light Yellow (Yellow); Glucose Urine UA Negative (Negative); Ketones Urine Negative (Negative); Leukocyte Esterase Ur Negative LEU/UL (Negative); Nitrate Urine Negative (Negative); Protein Urine Negative (Negative); Specific Grav Ur 1.015 (1.010-1.020); Urobilinogen Urine 0.2 mg/dL (0.2-1.0)
[2024-04-14 00:04] LABS: Add Urine Microscopic? NO
[2024-04-14 00:18] LABS: Troponin I 4.3 ng/L (0.00-60.4)
[2024-04-14 05:23] LABS: Hematocrit 34.9 % (35.0-49.0); Immature Platelet Fraction Pct 7.3 % (1.0-7.0); Mean Corpuscular HGB Conc 31.5 g/dL (32-36); Mean Corpuscular Hemoglobin 27.4 pg (27.0-31.0); Mean Platelet Volume 12.2 fl (9.2-11.8); Platelet Count Result 123 K/mm3 (150-420); Red Blood Count 4.01 M/mm3 (4.20-5.40); Red Cell Distribution Width 13.7 % (11.6-14.4); White Blood Count 3.6 K/mm3 (4.8-10.8)
[2024-04-14 05:46] LABS: Band Neutrophils Percent 0 % (0-6); Basophils Absolute Manual 0.07 K/mm3 (0-0.1); Basophils Percent Manual 2 % (0-1); Eosinophils Absolute Manual 0.14 K/mm3 (0.02-0.50); Eosinophils Percent Manual 4 % (1-6); Lymphocytes Absolute Manual 1.36 K/mm3 (1.1-4.5); Lymphocytes Percent Manual 38 % (18-44); Monocytes Absolute Manual 0.14 K/mm3 (0.1-0.90); Monocytes Percent Manual 4 % (3-9); Neutrophils Absolute Manual 1.87 K/mm3 (1.7-7.2); Neutrophils Percent Manual 52 % (46-73); Platelet Estimate Slightly Decreased (Adequate); Total Cells Counted 100
[2024-04-14 05:47] LABS: Alanine Aminotransferase 18 U/L (14-59); Albumin Level 2.8 g/dL (3.4-5.0); Alkaline Phosphatase 67 U/L (46-116); Anion Gap 6 mmol/L (4-12); Aspartate Amino Transferase 17 U/L (15-37); Bilirubin,Total 0.3 mg/dL (0.00-1.00); Blood Urea Nitrogen 6 mg/dL (7-18); Carbon Dioxide 28 mmol/L (21-32); Chloride 108 mmol/L (98-108); Estimated CRCL calculation 89 ml/min; Estimated Glomerular Filt Rate > 60; Glucose 106 mg/dL (70-99); Osmolality Calculated 291 mOsm/kg (285-295); Potassium 3.4 mmol/L (3.5-5.1); Sodium 142 mmol/L (136-145); Total Protein 5.4 g/dL (6.4-8.2)
[2024-04-14 05:48] LABS: Troponin I 4.6 ng/L (0.00-60.4)
[2024-04-14 05:52] LABS: Calcium 7.5 mg/dL (8.5-10.1)
--- NOTE | 2024-04-14 09:19 | PM.IMHP ---
H&P: HPI History of Present Illness Date/Time: 04/14/24 09:19 Chief Complaint: Chest tightness, abdominal pain Narrative: This is a 48 year old with past medical history of CAD with one stent in place. Patient was admitted overnight for repeat troponins due to chest discomfort. Patient reports that she was pain free overnight but it started again this morning. Patient did tolerate breakfast and has not asked for PRN pain medication. Potassium mildly low at 3.2 on admit. CXR normal. D-dimer normal. Patient reports mostly abdominal symptoms with epigastric and RUQ tenderness. Patient reports she had a stress test recently as well as an echo and her Job Setter Honing is out of [place]. Patient reports that the pain in her chest radiates through to her back. She is also and noted to have lower than anticipated blood pressures and usually takes amlodipine as well as metoprolol each day. Amlodipine is on hold. Ordered CTA chest abdomen pelvis to assess for aortic dissection. Patient's gallbladder was contracted as she had recent eaten. Ordered right upper quadrant ultrasound but this will have to be accomplished tomorrow because patient was not NPO long enough before ultrasound was gone for the day. Review of Systems Review of Systems: All systems reviewed & are unremarkable except as noted in HPI and below PMFSH Past Medical History Medical History CAD (coronary artery disease) Dyslipidemia Hypertension Surgical History Surgical History H/O: hysterectomy History of coronary artery stent placement Hx of breast reduction, elective Social History Social History Years smoked: 33 Smoking status: Current every day smoker Tobacco type: cigarettes Alcohol intake: current Substance use: never Do You Feel Safe in your Home?: Yes Lack of Transportation: No Lack of Food: Never True Current Housing: I Have Housing Concerned About Future Housing: No Difficulty Paying Gas/Electric Bills: No Difficulty Paying for Meds: No Currently Unemployed: No Education: High School Diploma/GED Difficulty w/ Childcare or Family Care: No Living arrangements: with family Spiritual care concerns: No Meds Home Medications and Allergies Home Medications Medication Instructions Recorded Confirmed Type atorvastatin 20 mg tablet 40 mg PO HS 09/29/19 04/13/24 History clopidogrel 75 mg tablet (Plavix) 75 mg PO DAILY 09/29/19 04/13/24 History nitroglycerin 0.4 mg sublingual 0.4 mg sublingual Q5M PRN Chest 09/29/19 04/13/24 History tablet Pain pantoprazole 40 mg tablet,delayed 40 mg PO BID 09/29/19 04/13/24 History release albuterol sulfate 90 mcg/actuation 1 - 2 puff inhalation QID PRN 11/19/20 04/13/24 History aerosol inhaler Shortness Of Breath Or Wheezing fluoxetine 10 mg capsule 10 mg PO DAILY 08/14/22 04/13/24 History fluoxetine 40 mg capsule 80 mg PO DAILY 08/14/22 04/13/24 History metoprolol succinate 25 mg 12.5 mg PO DAILY 08/14/22 04/13/24 History tablet,extended release 24 hr famotidine 20 mg tablet 20 mg PO DAILY 10/05/22 04/13/24 History amlodipine 5 mg tablet 5 mg PO DAILY 04/13/24 04/13/24 History aripiprazole 10 mg tablet 10 mg PO DAILY 04/13/24 04/13/24 History aspirin 81 mg chewable tablet 81 mg PO DAILY 04/13/24 04/13/24 History hydroxyzine HCl 50 mg tablet 50 mg PO TID 04/13/24 04/13/24 History Allergies Allergy/AdvReac Type Severity Reaction Status Date / Time No Known Allergies Allergy Verified 04/13/24 16:41 Vital Signs Vital Signs - 24 hr 04/13/24 16:36 04/13/24 16:36 04/13/24 16:36 Temperature 36.6 C Pulse Rate 70 70 Respiratory Rate 20 Blood Pressure 100/66 Pulse Oximetry 100 Oxygen Delivery Room Air Room Air 04/13/24 17:17 04/13/24 17:31 04/13/24 17:46 Temperature Pulse R
[2024-04-14] MEDS: ARIPiprazole 5 MG TABLET 10 MG PO (09:21)
[2024-04-14] MEDS: PANTOPRAZOLE 40 MG TABLET PO ×2 (09:22→16:29)
[2024-04-14] MEDS: hydrOXYzine HCL 25 MG TABLET 50 MG PO ×2 (09:22→16:28)
[2024-04-14] MEDS: FLUoxetine HCL 20 MG CAPSULE 80 MG PO (09:22)
[2024-04-14] MEDS: ASPIRIN 81 MG CHEWABLE TABLET PO (09:22)
[2024-04-14] MEDS: FAMOTIDINE 20 MG TABLET PO (09:22)
[2024-04-14] MEDS: CLOPIDOGREL BISULFATE 75 MG TABLET PO (09:22)
[2024-04-14] MEDS: METOPROLOL SUCCINATE EXT REL 12.5 MG TABCR PO (09:23)
[2024-04-14] MEDS: FLUoxetine HCL 10 MG CAPSULE PO (09:23)
[2024-04-14 09:41] LABS: Lipase 17 U/L (16-77)
[2024-04-14] MEDS: KCL 40 MEQ/0.9% SOD CHL 1,000 ML 100 ML IV CONT (10:08)
[2024-04-14] MEDS: POTASSIUM CHLORIDE 20 MEQ ER TABLET 40 MEQ PO (16:29)
--- NOTE | 2024-04-14 20:54 | PC.NURSE ---
This nurse was in another patients room, when patient expressed to another nurse wanting to leave AMA. This nurse went to patient room to discuss with patient concerns and reason for wanting to leave. We discussed why she was her and she stated she still wanted to leave. AMA paperwork brought to patient and this nurse went over what the AMA paper was about. Specified potential risks of leaving. Patient still acknowledges wanting to leave. Paperwork given to patient. Patient signed. Daughter signed as a witness. This nurse signed as a second witness. CADDY/CADDIE SUPERVISOR Bassem made aware. Patient out of building 2049.
--- NOTE | 2024-04-21 10:40 | PC.NURSE ---
Discharge call back complete, noted to have a hard area where IV site was with bruising, advised to monitor, warm compresses and return as needed, no other questions or concerns
== END 2024-04-14 20:50 | disposition left against medical advice (07) ==
LOC: CHSED 20:06 → CHS2ND 20:13
PROVIDERS: Nurse Practitioner; Admitting Provider Internal Medicine; Emergency Provider Emergency Medicine; PCP Family Medicine; Visit Provider Internal Medicine
DX: R07.9 Chest pain, unspecified (principal); R10.13 Epigastric pain; E87.6 Hypokalemia; I25.10 Atherosclerotic heart disease of native coronary artery without angina pectoris; Z95.5 Presence of coronary angioplasty implant and graft; I10 Essential (primary) hypertension; E78.5 Hyperlipidemia, unspecified; K21.9 Gastro-esophageal reflux disease without esophagitis; E66.01 Morbid (severe) obesity due to excess calories; Z68.41 Body mass index [BMI] 40.0-44.9, adult; Z79.82 Long term (current) use of aspirin; Z79.02 Long term (current) use of antithrombotics/antiplatelets; F17.210 Nicotine dependence, cigarettes, uncomplicated
CPT/HCPCS: 36415; 71045; 71275; 74174; 80053; 81003; 83690; 83880; 84484; 85025; 85055; 85380; 85610; 85730; 93005; 96361; 96365; 96366; 96374; 96375; 99285; A9270; C9113; G0378; G0379; J1885; J2270; J2405; J7030; Q9967

== ENCOUNTER 2024-08-18 16:21 | Emergency (ER) | payer OTHER, SELFPAY ==
[2024-08-18] VITALS (17 sets, daily range): BP systolic 113–141; BP diastolic 77–99; PULSE 61–76; RESP 8–24; TEMP 36.3; O2SAT 96–100
--- NOTE | ~2024-08-18 | XR_ITS ---
CHEST RADIOGRAPH CLINICAL HISTORY: Chest pain . COMPARISON: 04/13/2024 TECHNIQUE: Single portable view of the chest. FINDINGS The cardiomediastinal silhouette is unremarkable. Blunting of the right costophrenic sulcus suggesting a small right-sided pleural effusion. The remainder of the lungs are clear. Visualized osseous structures and soft tissues are unremarkable. IMPRESSION: Small right-sided pleural effusion without focal infiltrate. Reviewed, dictated and finalized at location A.
--- NOTE | 2024-08-18 16:23 | ECG_ITS ---
Test Date: 2024-08-18 16:32:03 Measurements Intervals [place] Rate: 61 P: 52 [place]: 168 QRS: 31 QRSD: 94 T: 57 QT: 408 QTc: 413 Interpretive Statements SINUS RHYTHM Compared to ECG 04/13/2024 16:47:52 No significant changes Electronically Signed On 08-19-2024 09:33:02 CDT by Frandy Staley M.D.
--- NOTE | 2024-08-18 17:00 | ED.CHESTPAIN ---
HPI - Chest Pain General Chief Complaint: Chest Pain Stated Complaint: chest pain Time Seen by Provider: 08/18/24 16:57 Source: patient Mode of arrival: ambulatory Limitations: no limitations History of Present Illness HPI narrative: 49-year-old female, smoker with a history of coronary artery disease status post stent 2019, negative stress test 1 year ago,, anxiety, dyslipidemia presents to the ED with -- substernal chest pain off and on for the past few days. It has been worse since this morning. Pain is unprovoked. pain is continuous. Is rated as 8/10. Pain radiates to the neck and both shoulders. No nausea /vomiting. patient took 1 sublingual nitro without any improvement of chest pain. Her chest pain is ongoing with the current level of 7/10. -- Intermittent shortness of breath -- diaphoresis -- has burping and indigestion. Patient is currently on aspirin and Plavix. MD complaint: chest pain Pertinent past history: coronary artery disease Onset (ago): day(s) Timing of current episode: constant Prior episodes: Yes Onset: during rest Pain location: substernal Pain radiation: neck, left shoulder and right shoulder Pain scale (0-10): 8 Quality: aching Relieving factors: nothing Exacerbating factors: nothing Associated symptoms: diaphoresis and dyspnea Treatment prior to arrival: nitroglycerin Risk Factors Coronary artery disease risk factors: smoking history, hyperlipidemia and hypertension Thoracic aortic dissection risk factors: longstanding hypertension Related Data On Oral Contraceptives: No Home Medications Medication Instructions Recorded Confirmed atorvastatin 20 mg tablet 40 mg PO HS 09/29/19 08/18/24 clopidogrel 75 mg tablet (Plavix) 75 mg PO DAILY 09/29/19 08/18/24 nitroglycerin 0.4 mg sublingual 0.4 mg sublingual Q5M PRN Chest 09/29/19 08/18/24 tablet Pain pantoprazole 40 mg tablet,delayed 40 mg PO BID 09/29/19 08/18/24 release albuterol sulfate 90 mcg/actuation 1 - 2 puff inhalation QID PRN 11/19/20 08/18/24 aerosol inhaler Shortness Of Breath Or Wheezing fluoxetine 10 mg capsule 10 mg PO DAILY 08/14/22 08/18/24 fluoxetine 40 mg capsule 80 mg PO DAILY 08/14/22 08/18/24 metoprolol succinate 25 mg 12.5 mg PO DAILY 08/14/22 08/18/24 tablet,extended release 24 hr famotidine 20 mg tablet 20 mg PO DAILY 10/05/22 08/18/24 amlodipine 5 mg tablet 5 mg PO DAILY 04/13/24 08/18/24 aspirin 81 mg chewable tablet 81 mg PO DAILY 04/13/24 08/18/24 hydroxyzine HCl 50 mg tablet 50 mg PO TID 04/13/24 08/18/24 Allergies Allergy/AdvReac Type Severity Reaction Status Date / Time No Known Allergies Allergy Verified 08/18/24 16:42 Review of Systems Review of Systems: All systems reviewed & are unremarkable except as noted in HPI and below Constitutional: Constitutional: Reports as per HPI and Reports no additional constitutional complaints Eyes: Eyes: Reports as per HPI and Reports no additional eye complaints ENT: Reports system reviewed and no additional complaints, except as documented and Reports as per HPI Cardiovascular: Cardiovascular: Reports as per HPI, Reports no additional cardiovascular complaints and Reports chest pain Respiratory: Respiratory: Reports as per HPI, Reports no additional respiratory complaints and Reports dyspnea Gastrointestinal: Gastrointestinal: Reports as per HPI, Reports no additional gastrointestinal complaints and Reports heartburn Comments: She has heartburn and indigestion Genitourinary: Genitourinary: Reports no additional female genitourinary complaints Musculoskeletal: Musculoskeletal: Reports no additional musculoskeletal complaints and Reports as per HPI Integumentary/Breasts: Skin/Breast: Reports system reviewed and no additional complaints, except as docu and Reports as per HPI Neurologic: Reports system reviewed and no additional complaints, except as documented and Reports as per HPI Psychiatric: Psychiatric: Reports no additional psychiatric comp
[2024-08-18] MEDS: ONDANSETRON INJ 4 MG/2 ML VIAL IV PUSH (17:34)
[2024-08-18] MEDS: MORPHINE SULFATE (*CRX) 2 MG/ML INJ IV PUSH (17:35)
[2024-08-18 17:53] LABS: Basophils Absolute Auto 0.05 K/mm3 (0.00-0.10); Basophils Percent Auto 1.1 % (0.0-1.0); Eosinophils Absolute Auto 0.18 K/mm3 (0.02-0.50); Eosinophils Percent Auto 3.9 % (1.0-6.0); Hematocrit 37.3 % (35.0-49.0); Hemoglobin 12.2 g/dL (12.0-15.0); Immature Granulocyte Absolute 0.01 K/mm3 (0.00-0.00); Immature Granulocyte Percent A 0.2 % (0.0-0.0); Lymphocytes Absolute Auto 1.67 K/mm3 (1.10-4.50); Lymphocytes Percent Auto 35.9 % (18.0-42.0); Mean Corpuscular HGB Conc 32.7 g/dL (32-36); Mean Corpuscular Hemoglobin 27.9 pg (27.0-31.0); Mean Corpuscular Volume 85.2 fL (78.0-102.0); Mean Platelet Volume 11.7 fl (9.2-11.8); Monocytes Absolute Auto 0.33 K/mm3 (0.10-0.90); Monocytes Percent Auto 7.1 % (2.0-11.0); Neutrophils Absolute Auto 2.41 K/mm3 (1.70-7.20); Neutrophils Percent Auto 51.8 % (50.0-70.0); Platelet Count Result 156 K/mm3 (150-420); Red Blood Count 4.38 M/mm3 (4.20-5.40); White Blood Count 4.7 K/mm3 (4.8-10.8)
--- NOTE | 2024-08-18 18:02 | PC.NURSE ---
PT HAS BEEN GIVEN PAIN MEDICATION, REPORTS SON WILL BE ABLE TO TRANSPORT HOME IF NEEDED. PT HAS WARM BLANKETS, LIGHTS OFF AT HER REQUEST. VSS PER MONITOR. PT IS AWAITING RESULTS. WILL CONTINUE TO MONITOR.
[2024-08-18 18:08] LABS: Partial Thromboplastin Time 27.1 Sec (23.9-30.70); Prothrombin Time 10.7 Seconds (9.50-12.1)
[2024-08-18 18:15] LABS: Alanine Aminotransferase 25 U/L (14-59); Albumin Level 3.5 g/dL (3.4-5.0); Alkaline Phosphatase 99 U/L (46-116); Anion Gap 9 mmol/L (4-12); Aspartate Amino Transferase 13 U/L (15-37); Bilirubin,Total 0.3 mg/dL (0.00-1.00); Blood Urea Nitrogen 7 mg/dL (7-18); Calcium 8.6 mg/dL (8.5-10.1); Carbon Dioxide 28 mmol/L (21-32); Chloride 106 mmol/L (98-108); Estimated CRCL calculation 86 ml/min; Estimated Glomerular Filt Rate > 60; Glucose 95 mg/dL (70-99); NT Pro B Type Natriuretic Pept 21 pg/mL (0-125); Osmolality Calculated 294 mOsm/kg (285-295); Potassium 3.3 mmol/L (3.5-5.1); Sodium 143 mmol/L (136-145); Total Protein 6.8 g/dL (6.4-8.2); Troponin I 4.2 ng/L (0.00-60.4)
--- NOTE | 2024-08-18 19:04 | PC.NURSE ---
PT IS SITTING UP TEXTING ON CELL PHONE, REPORTING INDIGESTION, PT HAS BEEN BELCHING, REPORTING A LITTLE RELIEF AFTER BELCHING. ERP IS NOTIFIED. REPORT TO MARQUITA IRENE. NAD NOTED. VSS PER MONITOR.
--- NOTE | 2024-08-18 19:16 | PC.NURSE ---
Patient report received from MARQUITA Cunningham. Patient resting on stretcher, DR. Austin at bedside for patient update.
[2024-08-18] MEDS: MAG HYDROX/ALUMINUM HYD/SIMETH 30 ML, PHENobarb/HYOSCY/ATROPINE/SCOP 32.4 MG, LIDOCAINE... PO (19:25)
== END 2024-08-18 19:45 | disposition home or self-care (01) ==
PROVIDERS: Emergency Provider Internal Medicine Critical Care Medicine; PCP Family Medicine
DX: F41.9 Anxiety disorder, unspecified (principal); R07.9 Chest pain, unspecified; I25.10 Atherosclerotic heart disease of native coronary artery without angina pectoris; F17.210 Nicotine dependence, cigarettes, uncomplicated; Z79.82 Long term (current) use of aspirin; Z79.01 Long term (current) use of anticoagulants; Z79.899 Other long term (current) drug therapy
CPT/HCPCS: 36415; 71045; 80053; 83880; 84484; 85025; 85610; 85730; 93005; 96374; 96375; 99284; A9270; J2270; J2405

== ENCOUNTER 2025-03-25 09:46 | Observation (INO) | payer OTHER, SELFPAY ==
[2025-03-25] VITALS (15 sets, daily range): BP systolic 86–120; BP diastolic 44–87; PULSE 58–97; RESP 16–24; TEMP 36.5–36.8; O2SAT 95–100; BMI 37.1; BMI 38.2
--- NOTE | ~2025-03-25 | XR_ITS ---
EXAMINATION: XR chest 2V 03/25/2025 10:35 INDICATION: Chest pain PROCEDURE: 2 view chest COMPARISON: Comparison to multiple prior studies sequentially, with oldest reviewed study dated 01/03. FINDINGS: The lungs are clear. The cardiomediastinal silhouette is within normal limits. There are no pleural effusions. There is no pneumothorax suspected. IMPRESSION: 1: NO ACUTE CARDIOPULMONARY DISEASE. Reviewed, dictated and finalized at location A.
--- NOTE | 2025-03-25 09:53 | ECG_ITS ---
Test Date: 2025-03-25 09:47:54 Measurements Intervals [place] Rate: 73 P: 40 [place]: 165 QRS: 35 QRSD: 98 T: 55 QT: 403 QTc: 446 Interpretive Statements SINUS RHYTHM WITH MARKED SINUS ARRHYTHMIA Compared to ECG 08/18/2024 16:32:03 No significant changes Electronically Signed On 03-25-2025 15:08:11 CDT by Frandy Staley M.D.
[2025-03-25 10:11] LABS: Eosinophils Absolute Auto 0.1 K/mm3 (0-0.3); Eosinophils Percent Auto 2.6 % (0-4.4); Hematocrit 36.1 % (37.0-47.0); Hemoglobin 11.7 g/dL (12.0-15.0); Immature Granulocyte Absolute 0.02 K/mm3 (0.00-0.031); Immature Granulocyte Percent A 0.5 % (0-0.5); Lymphocytes Absolute Auto 1.46 K/mm3 (0.9-3.2); Lymphocytes Percent Auto 34.8 % (18.3-44.2); Mean Corpuscular HGB Conc 32.4 g/dl (32-36); Mean Corpuscular Hemoglobin 27.1 pg (26-34); Mean Corpuscular Volume 83.8 fl (80-100); Mean Platelet Volume 11.7 fl (7.4-10.4); Monocytes Absolute Auto 0.3 K/mm3 (0.1-0.6); Monocytes Percent Auto 7.1 % (2.6-8.5); Neutrophils Absolute Auto 2.3 K/mm3 (1.3-6.7); Platelet Count Result 159 k/mm3 (150-375); Red Blood Count 4.31 M/mm3 (4.2-5.4); Red Cell Distribution Width 14.4 % (11.5-14.5); White Blood Count 4.2 K/mm3 (4.5-10.0)
--- OUTSIDE RECORDS SUMMARY | 2025-03-25 10:12 | XMS_ITS | Referral Summary ---
Author [place] [facility] [place] [address] Address [address] [place] [address] Care Team Providers Care Spinner Box Name Role Phone Chino Cleveland MD Primary Care Provider + [phone] Allergies No known active allergies Medications pantoprazole DR (PROTONIX) 40 mg EC tablet Take 40 mg by mouth daily. Active traMADol (ULTRAM) 50 mg tablet Take 50 mg by mouth every 6 (six) hours. Active nitroglycerin (NITROSTAT) 0.[address] 0.4 mg under the tongue every 5 (five) minutes as needed for chest pain. Active aspirin 81 mg tablet Take 1 tablet (81 mg total) by mouth daily. 90 tablet 2 8 Active metoprolol XL (TOPROL-XL) 25 mg 24 hr tablet Take 1 tablet (25 mg total) by mouth daily. 90 tablet 2 8 Active losartan (COZAAR) 25 mg tabletIndications :Essential hypertension Take 1 tablet (25 mg total) by mouth daily. 30 tablet 11 9 Active atorvastatin (LIPITOR) 40 mg tablet Take 0.5 tablets (20 mg total) by mouth daily 90 tablet 1 9 Active clopidogrel (PLAVIX) 75 mg tablet Take 1 tablet (75 mg total) by mouth daily 90 tablet 1 9 Active Active Problems Problem Noted Date Diagnosed Date Coronary artery disease invo lving curyung coronary artery of curyung heart without angina pectoris 07/20/2018 Assessment & Plan (07/20/2018 3:22 PM CDT): Continue aspirin, Brilinta, Lipitor. I provided patient with Brilinta samples. She will check with [facility] if they will do financial assistance however if that is not feasible then I will switch her to Plavix. Tobacco abuse counseling 07/20/2018 Assessment & Plan (07/20/2018 3:21 PM CDT): Counseled regarding the importance of quitting smoking. Borderline diabetes 07/20/2018 Assessment & Plan (07/20/2018 3:22 PM CDT): Advised patient to lose weight to help her get rid of this borderline diabetes Other chest pain 06/08/2018 Assessment & Plan (06/08/2018 11:41 AM CDT): Continue aspirin, beta-shaka, M Miguel Angel. Will arrange for cardiac catheterization. Family history of premature CAD 06/08/2018 Assessment & Plan (06/08/2018 11:40 AM CDT): Will need to keep LDL level below 100 Essential hypertension 06/08/2018 Assessment & Plan (07/20/2018 3:17 PM CDT): Elevated blood pressure today. Continue metoprolol 25 mg daily. Add losartan 12.5 mg daily. Assessment & Plan (06/08/2018 11:41 AM CDT): Blood pressure is controlled. Continue current treatment Mixed hyperlipidemia 06/08/2018 Assessment & Plan (07/20/2018 3:21 PM CDT): Continue Lipitor. Assessment & Plan (06/08/2018 11:39 AM CDT): Continue pravastatin. Smoker 06/08/2018 Assessment & Plan (06/08/2018 11:40 AM CDT): Counseled about the importance of quitting smoking. Resolved Problems Problem Noted Date Diagnosed Date Resolved Date Abnormal stress test 06/08/2018 018 Assessment & Plan (06/08/2018 11:40 AM CDT): Arrange for cardiac catheterization to define coronary anatomy. Multiple risk factors for CAD. Will attempt right radial approach if she has normal Abdulaziz's test. Continue aspirin. Social History Tobacco Use Types Packs/Day Years Used Date Smoking Tobacco: Every Day Cigarettes Smokeless Tobacco: Never Alcohol Use Standard Drinks/Week Comments No 0 (1 standard drink = 0.6 oz pur e alcohol) Personal Safety Answer Date Recorded Getting School Help Needed Not on file 12/26 Comments Unknown Sex and Gender Information Value Date Recorded Sex Assigned at Not on file Legal Sex Female 3:58 PM CDT Gender Identity Not on file Sexual Orientation Not on file Last Filed Vital Signs Vital Sign Reading Time Taken Comments Blood Pressure 128/88 11/03/2018 9:39 AM APRON TRIMMER Pulse 73 11/03/2018 9:39 AM APRON TRIMMER Temperature - - Respiratory Rate - - Oxygen Saturation 98% 11/03/2018 9:39 AM APRON TRIMMER Inhaled Oxygen Concentration - - Weight 96.6 kg (213 lb) 11/03/2018 9:39 AM APRON TRIMMER Height 160 cm (5' 3) 11/03/2018 9:39 AM APRON TRIMMER Body Mass Index 37.73 11/03/2018 9:39 AM APRON TRIMMER Plan of Treatment Not on file Insurance MEDICAID [facility] Care Teams Spinner Box Relationship Specialty Start Date End Date Chino Cleveland MD [address] [place] [address] PCP - General Family Medicine 11/02/18
--- OUTSIDE RECORDS SUMMARY | 2025-03-25 10:12 | XMS_ITS | Clinical Summary ---
Author Organization [facility] [place] [address] Address [address] [place] [address] Care Team Providers Care Restaurant Inspector Name Role Phone Chino Cleveland MD Primary Care Provider [phone] Allergies No known active allergies Medications pantoprazole [...] Diagnosed Date Coronary artery disease invo lving [place] coronary artery of [place] heart without angina pectoris 07/20/2018 Assessment & Plan (07/20/2018 3:22 PM CDT): Continue aspirin, Brilinta, Lipitor. I provided patient with Brilinta samples. She will check with [facility] if they will do financial assistance however [...] she has normal Abdulaziz's test. Continue aspirin. Surgical History Surgery Date Site/Laterality Comments REDUCTION MAMMAPLASTY HYSTERECTOMY BLADDER SURGERY CORONARY ANGIOPLASTY CARDIAC CATHETERIZATION Medical History Medical History Date Comments Gastritis Anxiety Hypertension Hyperlipidemia GERD (gastroesophageal reflux disease) Borderline diabetes Family History Medical History Relation Name Comments Heart attack Father Heart attack Mother Coronary artery disease Other Relation Name Status Comments Father Mother Alive Other Social History Tobacco Use Types Packs/Day Years [...] on file Sexual Orientation Not on file Obstetrics History Last Filed Vital Signs Vital Sign Reading Time Taken Comments Blood Pressure 128/88 11/03/2018 9:39 AM [employer] Pulse 73 11/03/2018 9:39 AM [employer] Temperature - - Respiratory Rate - - Oxygen Saturation 98% 11/03/2018 9:39 AM [employer] Inhaled Oxygen Concentration - - Weight 96.6 kg (213 lb) 11/03/2018 9:39 AM [employer] Height 160 cm (5' 3) 11/03/2018 9:39 AM [employer] Body Mass Index 37.73 11/03/2018 9:39 AM [employer] Plan of Treatment Health Maintenance Due Date Last Done Comments Breast Cancer Screening-Mammogram 1977 Colon Cancer Screening-Colonoscopy 1977 Depression Screening 1977 Hepatitis C Screening 1977 DTaP/Tdap/Td Vaccine (1 - Tdap) 1988 Hepatitis B Screening 1995 Regular Well Visit/Exam 18-64 1995 Pneumococcal vaccine <65 (1 of 2 - PCV) 1996 Covid-19 Vaccine (3 - season) 06/27/202412/2020, 02/22/2021 Influenza Vaccine (Season Ended) 2025 10/12/20 21 Insurance [facility] MEDICAID [facility] Care Teams Restaurant Inspector Relationship Specialty Start Date End Date Chino Cleveland MD [address] [place]ire[place] [address] PCP - General Family Medicine 11/02/18
--- OUTSIDE RECORDS SUMMARY | 2025-03-25 10:12 | XMS_ITS | Clinical Summary ---
Author Organization [facility] Address [address] [place] [address] Phone Care Team Providers Care Helper [employer] Name Role Phone Ludmila Rojas MD Primary Care Provider [phone] Allergies No known active allergies Medications amLODIPine (NORVASC) 5 mg tablet Take 5 mg by mouth daily. Active ARIPiprazole (ABILIFY) 10 mg tablet Take 10 mg by mouth daily. Active aspirin (ECOTRIN EC) 81 mg Tablet, Delayed Release (E.C.) Take 81 mg by mouth daily. Active clopidogreL (PLAVIX) 75 mg Tablet Take 75 mg by mouth daily. Active FLUoxetine (PROzac) 20 mg tablet Take 90 mg by mouth daily. Active metoprolol succinate (TOPROL XL) 25 mg Extended Release 24 hour tablet Take 12.5 mg by mouth daily. Active pantoprazole (PROTONIX) 40 mg Tablet, Delayed Release (E.C.) Take 40 mg by mouth 2 times daily. Active nitroglycerin (NITROSTAT) 0.4 mg Tablet, Sublingual Place 1 Tablet (0.4 mg) under tongue every 5 minutes as needed for Chest Pain. 25 Tablet 09/17/2024 Active ezetimibe (ZETIA) 10 mg tablet Take 1 Tablet (10 mg) by mouth daily. 30 Tablet 1 09/17/2024 Active atorvastatin (LIPITOR) 80 mg tablet Take 1 Tablet (80 mg) by mouth daily. 30 Tablet 1 09/17/2024 Active Active Problems Problem Noted Date Diagnosed Date Dyslipidemia 09/16/2024 Chest pain 09/16/2024 Atherosclerosis of [place] co ronary artery of [place] heart with unstable angina pectoris 09/15/2024 Primary hypertension 09/15/2024 Current smoker 09/15/2024 Anginal equivalent 09/15/2024 Encounters Date Type Department Care Team Description 03/22/2025 External Device Data [facility] ABSTRACTION Provider, Abstract 03/18/2025 External Device Data [facility] ABSTRACTION Provider, Abstract 03/16/2025 External Device Data [facility] ABSTRACTION Provider, Abstract 03/15/2025 External Device Data [facility] ABSTRACTION Provider, Abstract 01/12/2025 External Device Data [facility] ABSTRACTION Provider, Abstract 01/05/2025 External Device Data [facility] ABSTRACTION Provider, Abstract 01/04/2025 External Device Data [place] ABSTRACTION Provider, Abstract 01/01/2025 External Device Data [facility] ABSTRACTION Provider, Abstract 12/31/2024 External Device Data [facility] ABSTRACTION Provider, Abstract 12/29/2024 External Device Data [facility] ABSTRACTION Provider, Abstract from Last 3 Months Family History Medical History Relation Name Comments Heart Disease Mother Relation Name Status Comments Mother Social History Tobacco Use Types Packs/Day Years Used Date Smoking Tobacco: Every Day Cigarettes Tobacco Cessation:Ready to Q uit: Not Asked; Counseling Given: Not Answered Alcohol Use Standard Drinks/Week Comments Never 0 (1 standard drink = 0.6 oz pur e alcohol) Feeling Safe Answer Date Recorded Are you in a relationship wi th someone who hurts you emotionally and/or physically? No 09/15/2024 Food Insecurity Answer Date Recorded Patient needs follow up regardin 03/06/2025 Transportation Needs Answer Date Record ed Patient needs follow up regardin 03/06/2025 Housing Stability Answer Date Recorded Social/Environmental Concerns No concerns Utility Needs Answer Date Recorded Patient needs follow up regardin 03/06/2025 Comments Unknown Sex and Gender Information Value Date Recorded Sex Assigned at Not on file Legal Sex Female 5:15 PM [employer] Gender Identity Not on file Sexual Orientation Not on file Last Filed Vital Signs Vital Sign Reading Time Taken Comments Blood Pressure 136/96 09/17/2024 8:38 AM [employer] Pulse 82 09/17/2024 9:08 AM [employer] Temperature 36.7 C (98.1 F) 09/17/2024 7:00 AM [employer] Respiratory Rate 17 09/17/2024 9:08 AM [employer] Oxygen Saturation 96% 09/17/2024 9:08 AM [employer] Inhaled Oxygen Concentration - - Weight 100.4 kg (221 lb 6.4 oz) 09/17/2024 5:19 AM [employer] Height 160 cm (5' 3) 09/15/2024 9:21 PM [employer] Body Mass Index 39.22 09/15/2024 9:21 PM [employer] Plan of Treatment Health Maintenance Due Date Last Done Comments Pre-Diabetes and Diabetes Screening 1977 DTAP/TDAP/TD VACCINES (1 - Tdap) 1996 HEPATITIS B VACCINES (1 of 3 - 19+ 3-dose series) 10/1995 HPV/Cotest (21-29) 1998 CERVICAL CANCER SCREENING 2007 HPV/Cotest (30-65) 2007 PAP SMEAR 2007 BREAST CANCER SCREENING 2017 COLORECTAL SCREENING 2022 Colorectal Cancer Screening 2022 FIT-DNA Q 3 years 2022 FIT/FOBT Q 1 year 2022 Flex Sig/CT Colonography Q 5 years 2022 INFLUENZA VACCINE (#1) 2024 Insurance [employer] MED[place] [facility] [employer] (INTERNAL) [facility] Plans Advance Directives For more information, please contact: [phone] * Full Code (Latest Code Status on File) Date Activated Date Inactivated Comments 09/15/2024 11:13 PM 09/17/2024 1:39 PM Care Teams Helper [employer] Relationship Specialty Start Date End Date Ludmila Rojas MD [address] [place] [address] PCP - General Family Practice 09/16/24
[2025-03-25 10:19] LABS: Alanine Aminotransferase 19 U/L (6-35); Albumin Level 3.9 g/dL (3.5-5.1); Alkaline Phosphatase 87 U/L (38-126); Anion Gap 8 mmol/L (4-12); Aspartate Amino Transferase 26 U/L (14-36); Bilirubin,Total 0.5 mg/dL (0.2-1.3); Blood Urea Nitrogen 6 mg/dL (7-17); Calcium 8.7 mg/dL (8.4-10.2); Carbon Dioxide 24 mmol/L (22-30); Chloride 106 mmol/L (98-107); Estimated CRCL calculation 101 ml/min; Estimated Glomerular Filt Rate > 60; Glucose 104 mg/dL (65-110); Lipase 41 U/L (23-300); Potassium 3.1 mmol/L (3.4-5.0); Sodium 138 mmol/L (137-145)
[2025-03-25 10:22] LABS: Prothrombin Time 13.7 Seconds (11.1-14.7)
[2025-03-25 10:23] LABS: Partial Thromboplastin Time 25.4 Seconds (22.3-36.8)
[2025-03-25 10:31] LABS: Troponin I < 0.012 ng/mL (0.000-0.034)
--- NOTE | 2025-03-25 10:42 | ED_ITS ---
HPI - General Adult General Chief complaint: Chest Pain Stated complaint: Chest pain Time Seen by Provider: 03/25/25 09:48 History of Present Illness HPI narrative: Patient is a 49-year-old female who presents ER with chest pain. Sudden onset left-sided that occurred while she is working as a [employer]. She took nitroglycerin. No significant pain right now. Patient is feeling sleepy which is atypical for her. She was having radiation to her left shoulder and that with the pain. No dyspnea. After 3 nitroglycerines patient did have a low blood pressure. She has seen a cardiologists with [facility] but her stent was placed here by Dr. Lei basurto years ago when she had an IN. Related Data Home Medications ?Medication ?Instructions ?Recorded ?Confirmed ?Last Taken ?Type atorvastatin 20 mg tablet 40 mg PO HS 09/29/19 03/25/25 03/24/25 21:00 History 80 mg clopidogrel 75 mg tablet (Plavix) 75 mg PO DAILY 09/29/19 03/25/25 03/25/25 09:00 History 75 mg nitroglycerin 0.4 mg sublingual 0.4 mg sublingual Q5M PRN Chest 09/29/19 03/25/25 03/25/25 09:00 History tablet Pain 0.4 mg pantoprazole 40 mg tablet,delayed 40 mg PO BID 09/29/19 03/25/25 03/25/25 09:00 History release 40 mg albuterol sulfate 90 mcg/actuation 1 - 2 puff inhalation QID PRN 11/19/20 03/25/25 Unknown History aerosol inhaler Shortness Of Breath Or Wheezing fluoxetine 10 mg capsule 10 mg PO DAILY 08/14/22 03/25/25 03/25/25 09:00 History 10 mg fluoxetine 40 mg capsule 80 mg PO DAILY 08/14/22 03/25/25 03/25/25 09:00 History 80 mg metoprolol succinate 25 mg 12.5 mg PO DAILY 08/14/22 03/25/25 03/25/25 09:00 History tablet,extended release 24 hr 12.5 mg famotidine 20 mg tablet 20 mg PO DAILY 10/05/22 03/25/25 03/25/25 09:00 History 20 mg amlodipine 5 mg tablet 5 mg PO DAILY 04/13/24 03/25/25 03/25/25 09:00 History 5 mg aspirin 81 mg chewable tablet 81 mg PO DAILY 04/13/24 03/25/25 03/25/25 09:00 History 81 mg hydroxyzine HCl 50 mg tablet 50 mg PO TID 04/13/24 03/25/25 Unknown History fluticasone propionate 50 2 spray intranasal Q12H PRN 03/25/25 03/25/25 Unknown History mcg/actuation nasal allergy symptoms spray,suspension furosemide 20 mg tablet 20 mg PO DAILY 03/25/25 03/25/25 03/25/25 09:00 History 20 mg Allergies Allergy/AdvReac Type Severity Reaction Status Date / Time No Known Allergies Allergy Verified 08/18/24 16:42 Review of Systems 2 Review of Systems: All systems reviewed & are unremarkable except as noted in HPI and below Constitutional: Constitutional: Reports no additional constitutional complaints ENT: Reports system reviewed and no additional complaints, except as documented Cardiovascular: Cardiovascular: Reports no additional cardiovascular complaints Respiratory: Respiratory: Reports no additional respiratory complaints Gastrointestinal: Gastrointestinal: Reports no additional gastrointestinal complaints [facility] Past Medical History Medical History (Updated 03/25/25 @ 18:43 by Leonard White MD) Depression with anxiety Gastroesophageal reflux disease Obstructive sleep apnea Coronary artery disease Hypertension Dyslipidemia Surgical History Surgical History (Updated 03/25/25 @ 14:31 by Dolores Fernandes PA-C) History of section History of bilateral breast reduction surgery History of hysterectomy History of coronary artery stent placement Social History Social History (Updated 03/25/25 @ 14:31 by Dolores Fernandes PA-C) Social History: Surrogate medical decision maker: Dany Barbosa, significant other. Code status: Full code. Smoking packs per day: 0.5 Smoking cigarettes per day: 10.0 Years smoked: 33 Smoking pack-years: 16.50 Smoking status: Current every day smoker Tobacco type: cigarettes Alcohol intake: current Substance use: never Do You Feel Safe in your Home?: Yes Lack of Transportation: No Lack of Food: Never True Current Housing: I Have Housing Concerned About Future Housing: No Difficulty Paying Gas/Electric Bills: No Difficulty Paying for Meds: No Currently Unemployed: No Education: High School Diploma/GED Difficulty w/ Childcare or Family Care: No Living arrangements: with family Spiritual care concerns: No Exam 2 Narrative: GENERAL: Well-appearing, well-nourished, and in no acute distress. HEAD: Normocephalic, atraumatic. ENT: Mucous membranes moist. NECK: Supple. CHEST: Clear to auscultation. No respiratory distress. HEART: Regular rate and rhythm. Normal peripheral pulses. ABDOMEN: Soft, nontender, nondistended. EXTREMITIES: Normal range of motion. No edema. SKIN: Warm, dry, no rash. NEURO: Alert and oriented x3. PSYCH: Normal mood and affect. Course Course Emergency Course: Patient resting comfortably. Admit to hospitalist service given significant cardiac history and elevated heart score with chest pain. Patient comfortable with this plan. Hospitalist accepted.. Vital Signs Vital signs: Vital Signs Temperature 98.0 F 03/25/25 09:45 Pulse Rate 75 03/25/25 09:45 Respiratory Rate 18 03/25/25 09:45 Blood Pressure 86/44 L 03/25/25 09:45 Pulse Oximetry 100 03/25/25 09:45 Oxygen Delivery Room Air 03/25/25 09:45 Temperature 97.7 F 03/25/25 16:34 Pulse Rate 67 03/25/25 16:34 Respiratory Rate 20 03/25/25 16:34 Blood Pressure 114/70 03/25/25 16:34 Pulse Oximetry 98 03/25/25 16:34 Oxygen Delivery Room Air 03/25/25 16:00 Medical Decision Making Vital Signs Vital Signs: Vital Signs Temperature 98.0 F 03/25/25 09:45 Pulse Rate 75 03/25/25 09:45 Respiratory Rate 18 03/25/25 09:45 Blood Pressure 86/44 L 03/25/25 09:45 Pulse Oximetry 100 03/25/25 09:45 Oxygen Delivery Room Air 03/25/25 09:45 Temperature 97.7 F 03/25/25 16:34 Pulse Rate 67 03/25/25 16:34 Respiratory Rate 20 03/25/25 16:34 Blood Pressure 114/70 03/25/25 16:34 Pulse Oximetry 98 03/25/25 16:34 Oxygen Delivery Room Air 03/25/25 16:00 Lab Data 03/25/25 10:02 03/25/25 10:02 Labs: Lab Results 03/25/25 Range/Units 10:02 WBC 4.2 L (4.5-10.0) K/mm3 RBC 4.31 (4.2-5.4) M/mm3 Hgb 11.7 L (12.0-15.0) g/dL Hct 36.1 L (37.0-47.0) % MCV 83.8 (80-100) fl MCH 27.1 (26-34) pg MCHC 32.4 (32-36) g/dl RDW 14.4 (11.5-14.5) % Plt Count 159 (150-375) k/mm3 MPV 11.7 H (7.4-10.4) fl Immature Gran % (Auto) 0.5 (0-0.5) % Neut % (Auto) 54.0 (45.5-73.1) % Lymph % (Auto) 34.8 (18.3-44.2) % [place] % (Auto) 7.1 (2.6-8.5) % Eos % (Auto) 2.6 (0-4.4) % Baso % (Auto) 1.0 (0.2-1.2) % Lymph # (Auto) 1.46 (0.9-3.2) K/mm3 [place] # (Auto) 0.3 (0.1-0.6) K/mm3 Eos # (Auto) 0.1 (0-0.3) K/mm3 Baso # (Auto) 0.0 (0.0-0.1) K/mm3 Abs Immat Gran (auto) 0.02 (0.00-0.031) K/mm3 Absolute Neuts (auto) 2.3 (1.3-6.7) K/mm3 Absolute Nucleated RBC 0.000 (0.0-0.012) K/mm3 Nucleated RBC % 0.0 (0.0-0.2) % PT 13.7 (11.1-14.7) Seconds INR 1.0 APTT 25.4 (22.3-36.8) Seconds Sodium 138 (137-145) mmol/L Potassium 3.1 L (3.4-5.0) mmol/L Chloride 106 (98-107) mmol/L Carbon Dioxide 24 (22-30) mmol/L Anion Gap 8 (4-12) mmol/L BUN 6 L (7-17) mg/dL Creatinine 0.67 L (0.7-1.0) mg/dL Estim Creat Clear Calc 101 ml/min Estimated GFR > 60 (59 - ) Glucose 104 (65-110) mg/dL Calcium 8.7 (8.4-10.2) mg/dL Total Bilirubin 0.5 (0.2-1.3) mg/dL AST 26 (14-36) U/L ALT 19 (6-35) U/L Alkaline Phosphatase 87 (38-126) U/L Troponin I < 0.012 (0.000-0.034) ng/mL Total Protein 7.0 (6.3-8.2) g/dL Albumin 3.9 (3.5-5.1) g/dL Lipase 41 (23-300) U/L Imaging Data Radiologist's impression: ITS Impressions Chest X-Ray 03/25/25 10:38 IMPRESSION: 1: NO ACUTE CARDIOPULMONARY DISEASE. ECG Data EKG #1: ECG completion date: 03/25/25 ECG completion time: 09:47 EKG Interpretation: normal rate (73), sinus rhythm, normal QRS, normal QT and NL axis Discharge Plan Discharge Clinical Impression: Chest pain, rule out acute myocardial infarction Patient Disposition: Still a Patient Condition: Stable Quality HEART score for chest pain patients History: slightly suspicious ECG: non specific repolarization disturbance/LBTB/PM Age: > 45 and < 65 years Risk factors: > or = to 3 risk factors of atherosclerotic disease Troponin: < or = to 1x normal limit Heart score: 4
--- NOTE | 2025-03-25 12:49 | ECG_ITS ---
Test Date: 2025-03-25 12:57:56 Measurements Intervals [place] Rate: 55 P: 36 W[place]: 181 QRS: 22 QRSD: 95 T: 43 QT: 460 QTc: 441 Interpretive Statements SINUS BRADYCARDIA Compared to ECG 03/25/2025 09:47:54 Sinus rhythm no longer present Sinus arrhythmia no longer present Electronically Signed On 03-25-2025 15:10:43 CDT by Frandy Staley M.D.
--- NOTE | 2025-03-25 12:59 | PC.NURSE ---
Ambulated to restroom. Reports chest heaviness with exertion. Pain resolved when resting.
--- NOTE | 2025-03-25 13:23 | ADMGEN ---
This patient, Annette Swift, was admitted to IMU Room 201-01 at 1323. Patient/family oriented to hospital policies and general routines including ID bracelet, bed and alarms, visiting hours, pain management, procedures, bathroom and other care routines, personal items, smoking policy, room service/diet, and visiting hours. Information on how to activate the Rapid Response Team has been discussed. Patient/Family are encouraged to report perceived risks to care and to ask questions if they do not understand what they are told or what they should do.
--- NOTE | 2025-03-25 13:34 | ECG_ITS ---
Test Date: 2025-03-25 13:42:04 Measurements Intervals [place] Rate: 56 P: 31 WY: 175 QRS: 12 QRSD: 103 T: 25 QT: 472 QTc: 458 Interpretive Statements SINUS BRADYCARDIA Compared to ECG 03/25/2025 12:57:56 No significant changes Electronically Signed On 03-25-2025 15:11:25 CDT by Frandy Staley M.D.
[2025-03-25 13:35] LABS: Troponin I < 0.012 ng/mL (0.000-0.034)
--- NOTE | 2025-03-25 13:35 | P.HP_ITS ---
H&P: HPI History of Present Illness Date/Time: 03/25/25 14:30 Chief Complaint: Chest pain. Narrative: This is a 49-year-old female smoker with coronary artery disease and history of stents, hypertension, hyperlipidemia, obstructive sleep apnea, gastroesophageal reflux disease, depression, and anxiety who presented to the emergency department via EMS for evaluation of chest pain. 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 She took 1 sublingual nitroglycerin without much benefit and thereafter she began having some numbness and tingling in her left arm and she felt short of breath and nauseated. She took 2 further doses of nitroglycerin without benefit and that did drop her blood pressure. The discomfort is similar to that she experienced prior to her stent to the left circumflex which was apparently in 2017. She has had a cardiac catheterization since that time done in [place] by her training systems officer affiliated with primary Cardiology. At that time she was told she had 60 to 75% blockage of the left circumflex proximal to the previous stent and this was treated medically. She denies syncope, near syncope, pleuritic pain, sweats, vomiting, significant lower extremity edema, and calf pain. At the time my evaluation she is resting comfortably but does report still having intermittent pressure. In the ED: Vital signs on arrival include a blood pressure of 86/44, pulse 75, respiratory rate 18, SpO2 100% room air. Labs were significant for potassium of 3.1 and a troponin of less than 0.012. Chest x-ray was unremarkable. EKG showed sinus rhythm with sinus arrhythmia. She was given aspirin 324 mg she is being admitted in this setting for close monitoring due to her cardiac history. Review of Systems Review of Systems: 12 systems were reviewed and are negativ e except for as per HPI. FORMERLY [facility] Past Medical History Medical History Depression with anxiety Gastroesophageal reflux disease Obstructive sleep apnea Coronary artery disease Hypertension Dyslipidemia Surgical History Surgical History (Updated 03/25/25 @ 22:41 by Dolores Fernandes PA-C) History of section History of bilateral breast reduction surgery History of hysterectomy History of coronary artery stent placement left circumflex Social History Social History Social History: Surrogate medical decision maker: Dany Barbosa, significant other. Code status: Full code. Smoking packs per day: 0.5 Smoking cigarettes per day: 10.0 Years smoked: 33 Smoking pack-years: 16.50 Smoking status: Current every day smoker Tobacco type: cigarettes Alcohol intake: current Substance use: never Do You Feel Safe in your Home?: Yes Lack of Transportation: No Lack of Food: Never True Current Housing: I Have Housing Concerned About Future Housing: No Difficulty Paying Gas/Electric Bills: No Difficulty Paying for Meds: No Currently Unemployed: No Education: High School Diploma/GED Difficulty w/ Childcare or Family Care: No Living arrangements: with family Spiritual care concerns: No Meds Home Medications and Allergies Home Medications ?Medication ?Instructions ?Recorded ?Confirmed ?Type atorvastatin 20 mg tablet 40 mg PO HS 09/29/19 03/25/25 History clopidogrel 75 mg tablet (Plavix) 75 mg PO DAILY 09/29/19 03/25/25 History nitroglycerin 0.4 mg sublingual 0.4 mg sublingual Q5M PRN Chest 09/29/19 03/25/25 History tablet Pain pantoprazole 40 mg tablet,delayed 40 mg PO BID 09/29/19 03/25/25 History release albuterol sulfate 90 mcg/actuation 1 - 2 puff inhalation QID PRN 11/19/20 03/25/25 History aerosol inhaler Shortness Of Breath Or Wheezing fluoxetine 10 mg capsule 10 mg PO DAILY 08/14/22 03/25/25 History fluoxetine 40 mg capsule 80 mg PO DAILY 08/14/22 03/25/25 History metoprolol succinate 25 mg 12.5 mg PO DAILY 08/14/22 03/25/25 History tablet,extended release 24 hr famotidine 20 mg tablet 20 mg PO DAILY 10/05/22 03/25/25 History amlodipine 5 mg tablet 5 mg PO DAILY 04/13/24 03/25/25 History aspirin 81 mg chewable tablet 81 mg PO DAILY 04/13/24 03/25/25 History hydroxyzine HCl 50 mg tablet 50 mg PO TID 04/13/24 03/25/25 History fluticasone propionate 50 2 spray intranasal Q12H PRN 03/25/25 03/25/25 History mcg/actuation nasal allergy symptoms spray,suspension furosemide 20 mg tablet 20 mg PO DAILY 03/25/25 03/25/25 History Allergies Allergy/AdvReac Type Severity Reaction Status Date / Time No Known Allergies Allergy Verified 08/18/24 16:42 Vital Signs Vital Signs - 24 hr 03/25/25 09:45 03/25/25 11:00 03/25/25 12:29 Temperature 98.0 F Pulse Rate 75 64 60 Respiratory Rate 18 16 Blood Pressure 86/44 L Pulse Oximetry 100 100 Oxygen Delivery Room Air 03/25/25 12:30 03/25/25 12:32 03/25/25 13:17 Temperature Pulse Rate 66 62 97 Respiratory Rate 17 24 H 20 Blood Pressure 119/87 106/74 Pulse Oximetry 98 99 99 Oxygen Delivery Exam Narrative: General: Nontoxic-appearing female sitting up in bed in no acute distress. Weight: 98.1 kg. BMI: 38.3. HEENT: PERRL, EOMI. Sclera anicteric. Oral mucosa moist. Neck: Supple. Respiratory: Lungs are clear to auscultation bilaterally. Cardiovascular: Regular rate and rhythm with S1-S2. No murmur, rub, or gallop. Chest: No tenderness to palpation over the chest wall. Gastrointestinal: Abdomen is soft, nontender, and nondistended with positive bowel sounds. Skin: Warm and dry. No rash or lesions on limited exam. Extremities: No cyanosis, clubbing, or significant edema. Radial and pedal pulses intact. Neurological: Alert. Cranial nerves 2-12 are grossly intact. No gross focal deficits to casual conversation. Psychiatric: Pleasant and cooperative with appropriate mood and affect. H&P: Results Labs Labs: Short CBC 03/25/25 Range/Units 10:02 WBC 4.2 L (4.5-10.0) K/mm3 Hgb 11.7 L (12.0-15.0) g/dL Hct 36.1 L (37.0-47.0) % Plt Count 159 (150-375) k/mm3 BMP 03/25/25 10:02 Sodium 138 Potassium 3.1 L Chloride 106 Carbon Dioxide 24 BUN 6 L Creatinine 0.67 L Glucose 104 Calcium 8.7 Cardiac Enzymes 03/25/25 03/25/25 Range/Units 10:02 12:58 Troponin I < 0.012 < 0.012 (0.000-0.034) ng/mL Liver Function 03/25/25 Range/Units 10:02 Total Bilirubin 0.5 (0.2-1.3) mg/dL AST 26 (14-36) U/L ALT 19 (6-35) U/L Alkaline Phosphatase 87 (38-126) U/L Albumin 3.9 (3.5-5.1) g/dL Imaging Chest X-Ray 03/25/25 10:38 IMPRESSION: 1: NO ACUTE CARDIOPULMONARY DISEASE. Assessment and Plan Assessment and plan (1) Chest pain: Code(s): R07.9 - Chest pain, unspecified Status: Inactive (2) Hypokalemia: Code(s): E87.6 - Hypokalemia Status: Acute (3) Coronary artery disease: Code(s): I25.10 - Atherosclerotic heart disease of [place] coronary artery without angina pectoris Status: Acute (4) Hypertension: Code(s): I10 - Essential (primary) hypertension Status: Acute (5) Dyslipidemia: Code(s): E78.5 - Hyperlipidemia, unspecified Status: Acute (6) Gastroesophageal reflux disease: Code(s): K21.9 - Gastro-esophageal reflux disease without esophagitis Status: Acute (7) Obstructive sleep apnea: Code(s): G47.33 - Obstructive sleep apnea (adult) (pediatric) Status: Acute (8) Depression with anxiety: Code(s): F41.8 - Other specified anxiety disorders Status: Acute Plan The patient presented to the emergency department for evaluation of left-sided chest pain radiating to the left shoulder as detailed in HPI. Labs, imaging, EKG, and all reports were personally reviewed. Nitroglycerin x3 and did seem to help her discomfort but dropped her blood pressure. Initial troponin was within normal limits an EKG does not demonstrate any concerning ST segment changes. Given her cardiac history, she is being admitted for close monitoring and Cardiology consultation. Continue dual anti-platelet therapy, statin, and beta- shaka. Potassium will be replaced and monitored. Blood pressures were reviewed and they are stable. Chronic conditions including dyslipidemia, gastroesophageal reflux disease, depression, anxiety, and sleep apnea are without acute issue. CPAP will be provided for the patient to use while hospitalized. She needs to quit smoking. Nicotine patch ordered per patient request. Her home medications will be reviewed and resumed as appropriate. Findings and treatment plan were discussed with the patient. Questions were solicited and answered to satisfaction. The patient's medical management will be taken over by the hospitalist team in a.m. Quality VTE Prophylaxis VTE prophylaxis: mechanical ordered If No VTE Prophylaxis Answer both mechanical and pharmacologic: Reason no pharmacologic proph: medical contraindication (patient on dual anti- platelet therapy, pharmacologic prophylaxis would put her at increased risk for bleeding) The patient has been admitted under observation status. Hospitalist [facility] Advance Care Plan I have confirmed that the patient's Advanced Care Plan is present, code status is documented, or surrogate decision maker is listed in patient medical record.: Yes Medication Reconciliation I have utilized all available resources to obtain, update and review the patients current medications (includes all prescriptions, OTC, herbals, cannabis, and nutritional supplements).: Yes
[2025-03-25] MEDS: MORPHINE SULFATE (*CRX) 4 MG/ML INJ IV PUSH ×2 (14:05→16:57)
[2025-03-25 16:17] LABS: Troponin I < 0.012 ng/mL (0.000-0.034)
[2025-03-25] MEDS: POTASSIUM CHLORIDE 20 MEQ ER TABLET 40 MEQ PO (16:54)
[2025-03-25] MEDS: ONDANSETRON INJ 4 MG/2 ML VIAL IV PUSH (16:57)
[2025-03-25] MEDS: NICOTINE (*PBKC) 14 MG PATCH 1 PATCH TRANSDERM (21:37)
[2025-03-26] VITALS (32 sets, daily range): BP systolic 103–137; BP diastolic 66–103; PULSE 56–81; RESP 11–95; TEMP 36.4–36.9; O2SAT 91–100
[2025-03-26] MEDS: ATORVASTATIN 40 MG TABLET PO ×2 (00:03→21:03)
[2025-03-26] MEDS: ONDANSETRON INJ 4 MG/2 ML VIAL IV PUSH ×2 (00:03→15:09)
--- NOTE | 2025-03-26 05:10 | ECG_ITS ---
Test Date: 2025-03-26 05:17:29 Measurements Intervals Webb Rate: 60 P: 17 HI: 160 QRS: 22 QRSD: 97 T: 33 QT: 420 QTc: 423 Interpretive Statements SINUS RHYTHM WITHIN NORMAL LIMITS Compared to ECG 03/25/2025 13:42:04 NO SIGNIFICANT DIFFERENCE Electronically Signed On 03-26-2025 07:44:38 CDT by Issa Clark M.D.
[2025-03-26 05:15] LABS: Hematocrit 35.7 % (37.0-47.0); Mean Corpuscular HGB Conc 30.8 g/dl (32-36); Mean Corpuscular Hemoglobin 27.3 pg (26-34); Mean Corpuscular Volume 88.6 fl (80-100); Mean Platelet Volume 11.6 fl (7.4-10.4); Platelet Count Result 148 k/mm3 (150-375); Red Blood Count 4.03 M/mm3 (4.2-5.4); Red Cell Distribution Width 14.5 % (11.5-14.5); White Blood Count 4.1 K/mm3 (4.5-10.0)
[2025-03-26] MEDS: MORPHINE SULFATE (*CRX) 4 MG/ML INJ IV PUSH (05:24)
[2025-03-26 05:25] LABS: Anion Gap 5 mmol/L (4-12); Blood Urea Nitrogen 7 mg/dL (7-17); Calcium 8.4 mg/dL (8.4-10.2); Carbon Dioxide 25 mmol/L (22-30); Chloride 107 mmol/L (98-107); Cholesterol 131 mg/dL (0-200); Estimated CRCL calculation 104 ml/min; Estimated Glomerular Filt Rate > 60; Glucose 99 mg/dL (65-110); HDL Direct 38 mg/dL; Potassium 3.5 mmol/L (3.4-5.0); Sodium 137 mmol/L (137-145); Triglycerides 117 mg/dL (<150)
[2025-03-26 05:36] LABS: LDL Cholesterol Direct 67 mg/dL
[2025-03-26 05:39] LABS: Hemoglobin A1C 5.4 % (<5.7)
[2025-03-26] MEDS: BELLADONNA ALK/PHENOB ELIX 10 ML, MAG HYDROX/ALUMINUM HYD/SIMETH 30 ML, LIDOCAINE 2% VI... PO (06:22)
[2025-03-26] MEDS: HEPARIN SODIUM 5,000 UNITS/ML VIAL 5000 UNITS IV PUSH (06:33)
[2025-03-26] MEDS: HEPARIN SOD/D5W 100 UNITS/ML 25,000 UNITS/250 ML BAG 9 UNITS IV CONT (06:35)
[2025-03-26 07:04] LABS: INR 1.1
[2025-03-26 07:05] LABS: Partial Thromboplastin Time 25.5 Seconds (22.3-36.8)
[2025-03-26 07:13] LABS: Troponin I < 0.012 ng/mL (0.000-0.034)
--- NOTE | 2025-03-26 08:16 | PM.IMPN ---
Progress Note: A&P Assessment and Plan (1) Chest pain: Code(s): R07.9 - Chest pain, unspecified Status: Inactive (2) Hypokalemia: Code(s): E87.6 - Hypokalemia Status: Acute (3) Coronary artery disease: Code(s): I25.10 - Atherosclerotic heart disease of [place] coronary artery without angina pectoris Status: Acute (4) Hypertension: Code(s): I10 - Essential (primary) hypertension Status: Acute (5) Dyslipidemia: Code(s): E78.5 - Hyperlipidemia, unspecified Status: Acute (6) Gastroesophageal reflux disease: Code(s): K21.9 - Gastro-esophageal reflux disease without esophagitis Status: Acute (7) Obstructive sleep apnea: Code(s): G47.33 - Obstructive sleep apnea (adult) (pediatric) Status: Acute (8) Depression with anxiety: Code(s): F41.8 - Other specified anxiety disorders Status: Acute Plan This is a 49-year-old female smoker with coronary artery disease and history of stents, hypertension, hyperlipidemia, obstructive sleep apnea, gastroesophageal reflux disease, depression, and anxiety who presented to the emergency department via EMS for evaluation of chest pain. 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 She took 1 sublingual nitroglycerin without much benefit and thereafter she began having some numbness and tingling in her left arm and she felt short of breath and nauseated. She took 2 further doses of nitroglycerin without benefit and that did drop her blood pressure. The discomfort is similar to that she experienced prior to her stent to the left circumflex which was apparently in 2017. She has had a cardiac catheterization since that time done in [place] by her waste duster affiliated with primary Cardiology. At that time she was told she had 60 to 75% blockage of the left circumflex proximal to the previous stent and this was treated medically. She denies syncope, near syncope, pleuritic pain, sweats, vomiting, significant lower extremity edema, and calf pain. At the time my evaluation she is resting comfortably but does report still having intermittent pressure. In the ED: Vital signs on arrival include a blood pressure of 86/44, pulse 75, respiratory rate 18, SpO2 100% room air. Labs were significant for potassium of 3.1 and a troponin of less than 0.012. Chest x-ray was unremarkable. EKG showed sinus rhythm with sinus arrhythmia. She was given aspirin 324 mg she is being admitted in this setting for close monitoring due to her cardiac history. chest pain radiating to the left shoulder. EKG reviewed. Nitroglycerin x3 and did seem to help her discomfort but dropped her blood pressure. Initial troponin was within normal limits an EKG does not demonstrate any concerning ST segment changes. Serial troponins have been negative. She had been started on heparin drip per Cardiology for possible unstable angina. She is being planned for coronary angiogram. Continue dual anti-platelet therapy, statin, and beta-shaka. Hypokalemia replace and monitor Dyslipidemia GERD Anxiety depression Sleep apnea on CPAP Tobacco abuse DVT prophylaxis heparin drip Code status full code Subjective Date/time seen: 03/26/25 08:16 Interval history: Patient reports he continues have chest pain. Retrosternal in location. Review of Systems Review of Systems: All systems reviewed & are unremarkable except as noted in HPI and below Exam Narrative: General: Nontoxic-appearing female sitting up in bed in no acute distress. HEENT: PERRL, EOMI. Sclera anicteric. Oral mucosa moist. Neck: Supple. Respiratory: Lungs are clear to auscultation bilaterally. Cardiovascular: Regular rate and rhythm with S1-S2. No murmur, rub, or gallop. Chest: No tenderness to palpation over the chest wall. Gastrointestinal: Abdomen is soft, nontender, and nondistended with positive bowel sounds. Skin: Warm and dry. No rash or lesions on limited exam. Extremities: No cyanosis, clubbing, or significant edema. Radial and pedal pulses intact. Neurological: Alert. Cranial nerves 2-12 are grossly intact. No gross focal deficits to casual conversation. Psychiatric: Pleasant and cooperative with appropriate mood and affect. Objective Data Vital Signs Vital Signs: Vital Signs - 24 hr 03/25/25 09:45 03/25/25 11:00 03/25/25 12:29 Temperature 98.0 F Pulse Rate 75 64 60 Respiratory Rate 18 16 Blood Pressure 86/44 L Pulse Oximetry 100 100 Oxygen Delivery Room Air 03/25/25 12:30 03/25/25 12:32 03/25/25 13:17 Temperature Pulse Rate 66 62 97 Respiratory Rate 17 24 H 20 Blood Pressure 119/87 106/74 Pulse Oximetry 98 99 99 Oxygen Delivery 03/25/25 13:40 03/25/25 14:00 03/25/25 14:00 Temperature 98.3 F Pulse Rate 61 58 L Respiratory Rate 20 Blood Pressure 110/63 Pulse Oximetry 99 98 Oxygen Delivery Room Air 03/25/25 16:00 03/25/25 16:00 03/25/25 16:34 Temperature 97.7 F Pulse Rate 69 67 Respiratory Rate 20 Blood Pressure 114/70 Pulse Oximetry 99 98 Oxygen Delivery Room Air 03/25/25 18:00 03/25/25 20:00 03/25/25 20:00 Temperature 97.8 F Pulse Rate 66 65 Respiratory Rate 20 Blood Pressure 120/72 Pulse Oximetry 98 98 Oxygen Delivery Room Air 03/25/25 20:00 03/25/25 22:00 03/25/25 22:02 Temperature Pulse Rate 82 70 Respiratory Rate Blood Pressure Pulse Oximetry 95 Oxygen Delivery Room Air 03/25/25 23:35 03/26/25 00:00 03/26/25 00:00 Temperature 97.8 F Pulse Rate 60 67 Respiratory Rate 20 Blood Pressure 97/57 L Pulse Oximetry 96 96 Oxygen Delivery Room Air 03/26/25 02:00 03/26/25 04:00 03/26/25 04:00 Temperature Pulse Rate 66 66 Respiratory Rate Blood Pressure Pulse Oximetry Oxygen Delivery Room Air 03/26/25 04:00 03/26/25 06:00 Temperature 97.7 F Pulse Rate 69 61 Respiratory Rate 14 Blood Pressure 125/88 Pulse Oximetry 100 Oxygen Delivery Intake/Output Intake/Output: Intake & Output 03/23/25 03/24/25 03/25/25 03/26/25 23:59 23:59 23:59 23:59 Intake Total 830 Output Total 500 200 Balance 330 -200 Meds/Results Medications: Active Medications Generic Name Dose Route Start Last Admin Trade Name Freq PRN Reason Stop Dose Admin Acetaminophen 650 mg 03/25/25 12:46 Acetaminophen 325 Mg Tablet PO Q4H PRN Mild Pain (1-3) or Fever Hydrocodone Bitart/Acetaminophen 1 tab 03/25/25 12:46 Hydrocodone/Acetaminophen (*Crx) 5-325 Mg Tablet PO Q4H PRN Pain Rated 4-6 Albuterol 1 - 2 puff 03/25/25 22:42 Albuterol Sulfate (*Sp) Aerosol 1 Puff INHALATION QID PRN Shortness Of Breath Or Wheezing Amlodipine Besylate 5 mg 03/26/25 09:00 Amlodipine Besylate 5 Mg Tablet PO DAILY [facility] Aspirin 81 mg 03/26/25 09:00 Aspirin 81 Mg Chewable Tablet PO DAILY@0900 [facility] Atorvastatin Calcium 40 mg 03/25/25 22:50 03/26/25 00:03 Atorvastatin 40 Mg Tablet PO 40 mg HS [facility] Administration Clopidogrel Bisulfate 75 mg 03/26/25 09:00 Clopidogrel Bisulfate 75 Mg Tablet PO DAILY [facility] Famotidine 20 mg 03/26/25 09:00 Famotidine 20 Mg Tablet PO DAILY [facility] Fluoxetine HCl 80 mg 03/26/25 09:00 Fluoxetine Hcl 20 Mg Capsule PO DAILY [facility] Fluticasone Propionate 2 spray 03/25/25 22:42 Fluticasone Propionate 0.05% Na Spr 16 Gm Btl (*Bkc) NASAL DAILY PRN allergy symptoms Furosemide 20 mg 03/26/25 09:00 Furosemide 20 Mg Tablet PO DAILY [facility] Heparin Sodium (Porcine) 4,000 units 03/26/25 06:16 Heparin Sodium 5,000 Units/Ml Vial IV PUSH PRN PRN aPTT less than 55 seconds Heparin Sodium (Porcine) 3,000 units 03/26/25 06:16 Heparin Sodium 5,000 Units/Ml Vial IV PUSH PRN PRN aPTT 55 - 70 seconds Heparin Sodium/Dextrose 25,000 units in 250 mls @ 9 mls/hr 03/26/25 06:20 03/26/25 06:35 Heparin Sodium/D5w 100 Units/Ml IV CONT 900 units/hr .Q24H [facility] 9 mls/hr Administration Protocol 900 UNITS/HR Metoprolol Succinate 12.5 mg 03/26/25 09:00 Metoprolol Succinate Ext Rel 12.5 Mg Tabcr PO DAILY [facility] Morphine Sulfate 4 mg 03/25/25 12:46 03/26/25 05:24 Morphine Sulfate (*Crx) 4 Mg/Ml Inj IV PUSH 4 mg Q2H PRN Administration Pain Rated 7-10 Nicotine 1 patch 03/25/25 21:05 03/25/25 21:37 Nicotine (*Pbkc) 14 Mg Patch TRANSDERM 1 patch DAILY [facility] Administration Nitroglycerin 0.4 mg 03/26/25 06:32 Nitroglycerin Sl 0.4 Mg Tablet SUBLINGUAL Q5MIN PRN Chest Pain Ondansetron HCl 4 mg 03/25/25 12:46 03/26/25 00:03 Ondansetron Inj 4 Mg/2 Ml Vial IV PUSH 4 mg Q4H PRN Administration Nausea Pantoprazole Sodium 40 mg 03/26/25 09:00 Pantoprazole 40 Mg Tablet PO BID [facility] Radiology Results: ITS Impressions Chest X-Ray 03/25/25 10:38 IMPRESSION: 1: NO ACUTE CARDIOPULMONARY DISEASE. Labs Labs: Laboratory Results - last 24 hr 03/25/25 03/25/25 03/25/25 10:02 12:58 15:51 WBC 4.2 L RBC 4.31 Hgb 11.7 L Hct 36.1 L MCV 83.8 MCH 27.1 MCHC 32.4 RDW 14.4 Plt Count 159 MPV 11.7 H Immature Gran % (Auto) 0.5 Neut % (Auto) 54.0 Lymph % (Auto) 34.8 [place] % (Auto) 7.1 Eos % (Auto) 2.6 Baso % (Auto) 1.0 Lymph # (Auto) 1.46 [place] # (Auto) 0.3 Eos # (Auto) 0.1 Baso # (Auto) 0.0 Abs Immat Gran (auto) 0.02 Absolute Neuts (auto) 2.3 Absolute Nucleated RBC 0.000 Nucleated RBC % 0.0 PT 13.7 INR 1.0 APTT 25.4 Sodium 138 Potassium 3.1 L Chloride 106 Carbon Dioxide 24 Anion Gap 8 BUN 6 L Creatinine 0.67 L Estim Creat Clear Calc 101 Estimated GFR > 60 Glucose 104 Hemoglobin A1c Calcium 8.7 Magnesium Total Bilirubin 0.5 AST 26 ALT 19 Alkaline Phosphatase 87 Troponin I < 0.012 < 0.012 < 0.012 Total Protein 7.0 Albumin 3.9 Triglycerides Cholesterol LDL Cholesterol Direct HDL Direct Lipase 41 03/26/25 03/26/25 03/26/25 04:56 06:26 06:30 WBC 4.1 L RBC 4.03 L Hgb 11.0 L Hct 35.7 L MCV 88.6 D MCH 27.3 MCHC 30.8 L RDW 14.5 Plt Count 148 L MPV 11.6 H Immature Gran % (Auto) Neut % (Auto) Lymph % (Auto) [place] % (Auto) Eos % (Auto) Baso % (Auto) Lymph # (Auto) [place] # (Auto) Eos # (Auto) Baso # (Auto) Abs Immat Gran (auto) Absolute Neuts (auto) Absolute Nucleated RBC Nucleated RBC % PT 14.0 INR 1.1 APTT 25.5 Sodium 137 Potassium 3.5 Chloride 107 Carbon Dioxide 25 Anion Gap 5 BUN 7 Creatinine 0.64 L Estim Creat Clear Calc 104 Estimated GFR > 60 Glucose 99 Hemoglobin A1c 5.4 Calcium 8.4 Magnesium 2.0 Total Bilirubin AST ALT Alkaline Phosphatase Troponin I < 0.012 Total Protein Albumin Triglycerides 117 Cholesterol 131 LDL Cholesterol Direct 67 HDL Direct 38 Lipase
[2025-03-26] MEDS: FAMOTIDINE 20 MG TABLET PO (08:39)
[2025-03-26] MEDS: ASPIRIN 81 MG CHEWABLE TABLET PO (08:39)
[2025-03-26] MEDS: FLUoxetine HCL 20 MG CAPSULE 80 MG PO (08:40)
[2025-03-26] MEDS: METOPROLOL SUCCINATE EXT REL 12.5 MG TABCR PO (08:40)
[2025-03-26] MEDS: FUROSEMIDE 20 MG TABLET PO (08:41)
[2025-03-26] MEDS: amLODIPine BESYLATE 5 MG TABLET PO (08:41)
[2025-03-26] MEDS: NICOTINE (*PBKC) 14 MG PATCH 1 PATCH TRANSDERM (08:50)
[2025-03-26] MEDS: PANTOPRAZOLE 40 MG TABLET PO ×2 (08:50→21:03)
[2025-03-26] MEDS: NITROGLYCERIN SL 0.4 MG TABLET SUBLINGUAL ×2 (08:56→18:37)
[2025-03-26] MEDS: CLOPIDOGREL BISULFATE 75 MG TABLET PO (09:04)
--- NOTE | 2025-03-26 09:32 | P.CONCA_ITS ---
Assessment and Plan Assessment and plan (1) Chest pain, rule out acute myocardial infarction: Code(s): R07.9 - Chest pain, unspecified Status: Acute (2) Coronary artery disease: Code(s): I25.10 - Atherosclerotic heart disease of [place] coronary artery without angina pectoris Status: Acute Plan This is a 49-year-old lady with known coronary artery disease as detailed above she has remote history of PCI to the distal circumflex and ongoing follow-up elsewhere. She does report having had an angiogram done within the last year in [place] which apparently did not show disease that was of enough severity to recommend PCI however the patient does describe what sounds like moderate stenosis proximal to her previously deployed stent. It is obviously concerning that she has waxing and waning pressure-like chest pain at rest on the other hand her biomarkers are normal. ECG shows some very subtle ST segment depression in leads 1 and aVL. In this setting I believe we should recommend a follow-up angiogram. I will contact my interventional colleague supply chain consultant to discuss timing of this. For now she should be kept NPO Issa Clark MD [facility] History of Present Illness History of Present Illness Consult date/time: 03/26/25 09:32 Reason For Visit: Chest pain Narrative: This is a 49-year-old woman I am seeing at the request of the hospitalist for consultation regarding chest pain. 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 The discomfort has been waxing and waning since onset. She came to the emergency department early yesterday afternoon for evaluation. The symptoms were resolving on their own in the emergency room. Her electrocardiogram is benign as were her troponin levels and she was admitted to the hospital for further evaluation. Since yesterday she states the discomfort is pressure-like pain as she is describing is waxing and waning just laying in bed she does not have any other symptoms such as diaphoresis nausea or vomiting. There is no radiation of this symptom to any other location. She has had 3 sets of troponins done the which are normal. Her chart also includes 3 or 4 electrocardiograms which look unremarkable. The the most recent ECG done earlier this morning shows some very subtle ST depression in leads 1 and aVL. In this setting I am seeing her in consultation. Earlier this morning she was started on intravenous heparin and is being seen today in consultation. Her history of coronary artery disease dates back to 2017 which he came to this hospital with acute coronary syndrome at that time. Catheterization apparently demonstrated significant disease in her circumflex and she received a drug- eluting stent to the distal circumflex with a good result. She since then has been followed by a different cardiology group up in [facility]. She was following with physicians up there at the request of her family. She has been doing well. She does describe having had a follow-up catheterization there in 2023 to investigate symptoms of chest pain was told of moderate stenosis in the circumflex proximal to her stent but PCI of this was not felt to be recommended, medical therapy was chosen. She does have hypertension and dyslipidemia and obesity. Unfortunately she has also continued to smoke. Review of Systems 2 Constitutional: Constitutional: Reports no additional constitutional complaints Eyes: Eyes: Reports no additional eye complaints ENT: Reports system reviewed and no additional complaints, except as documented Cardiovascular: Cardiovascular: Reports as per HPI and Reports chest pain Respiratory: Respiratory: Reports no additional respiratory complaints Gastrointestinal: Gastrointestinal: Reports no additional gastrointestinal complaints Musculoskeletal: Musculoskeletal: Reports no additional musculoskeletal complaints Integumentary/Breasts: Skin/Breast: Reports system reviewed and no additional complaints, except as docu Neurologic: Reports system reviewed and no additional complaints, except as documented Psychiatric: Psychiatric: Reports no additional psychiatric complaints Endocrine: Endocrine: Reports no additional endocrine complaints Hematologic/Lymphatic: Hematologic/Lymphatic: Reports no additional hematologic/lymphatic complaints Allergic/Immunologic: Allergic/Immunologic: Reports no additional allergic/immunologic complaints [facility] Past Medical History Medical History Depression with anxiety Gastroesophageal reflux disease Obstructive sleep apnea Coronary artery disease Hypertension Dyslipidemia Surgical History Surgical History (Updated 03/25/25 @ 22:41 by Dolores Fernandes PA-C) History of section History of bilateral breast reduction surgery History of hysterectomy History of coronary artery stent placement left circumflex Social History Social History Social History: Surrogate medical decision maker: Dany Barbosa, significant other. Code status: Full code. Smoking packs per day: 0.5 Smoking cigarettes per day: 10.0 Years smoked: 33 Smoking pack-years: 16.50 Smoking status: Current every day smoker Tobacco type: cigarettes Alcohol intake: current Substance use: never Do You Feel Safe in your Home?: Yes Lack of Transportation: No Lack of Food: Never True Current Housing: I Have Housing Concerned About Future Housing: No Difficulty Paying Gas/Electric Bills: No Difficulty Paying for Meds: No Currently Unemployed: No Education: High School Diploma/GED Difficulty w/ Childcare or Family Care: No Living arrangements: with family Spiritual care concerns: No Meds Home Medications and Allergies Home Medications ?Medication ?Instructions ?Recorded ?Confirmed ?Type atorvastatin 20 mg tablet 40 mg PO HS 09/29/19 03/25/25 History clopidogrel 75 mg tablet (Plavix) 75 mg PO DAILY 09/29/19 03/25/25 History nitroglycerin 0.4 mg sublingual 0.4 mg sublingual Q5M PRN Chest 09/29/19 03/25/25 History tablet Pain pantoprazole 40 mg tablet,delayed 40 mg PO BID 09/29/19 03/25/25 History release albuterol sulfate 90 mcg/actuation 1 - 2 puff inhalation QID PRN 11/19/20 03/25/25 History aerosol inhaler Shortness Of Breath Or Wheezing fluoxetine 10 mg capsule 10 mg PO DAILY 08/14/22 03/25/25 History fluoxetine 40 mg capsule 80 mg PO DAILY 08/14/22 03/25/25 History metoprolol succinate 25 mg 12.5 mg PO DAILY 08/14/22 03/25/25 History tablet,extended release 24 hr famotidine 20 mg tablet 20 mg PO DAILY 10/05/22 03/25/25 History amlodipine 5 mg tablet 5 mg PO DAILY 04/13/24 03/25/25 History aspirin 81 mg chewable tablet 81 mg PO DAILY 04/13/24 03/25/25 History hydroxyzine HCl 50 mg tablet 50 mg PO TID 04/13/24 03/25/25 History fluticasone propionate 50 2 spray intranasal Q12H PRN 03/25/25 03/25/25 History mcg/actuation nasal allergy symptoms spray,suspension furosemide 20 mg tablet 20 mg PO DAILY 03/25/25 03/25/25 History Allergies Allergy/AdvReac Type Severity Reaction Status Date / Time No Known Allergies Allergy Verified 08/18/24 16:42 Vital Signs Vital Signs - 24 hr 03/25/25 09:45 03/25/25 11:00 03/25/25 12:29 Temperature 36.7 C Pulse Rate 75 64 60 Respiratory Rate 18 16 Blood Pressure 86/44 L Pulse Oximetry 100 100 Oxygen Delivery Room Air 03/25/25 12:30 03/25/25 12:32 03/25/25 13:17 Temperature Pulse Rate 66 62 97 Respiratory Rate 17 24 H 20 Blood Pressure 119/87 106/74 Pulse Oximetry 98 99 99 Oxygen Delivery 03/25/25 13:40 03/25/25 14:00 03/25/25 14:00 Temperature 36.8 C Pulse Rate 61 58 L Respiratory Rate 20 Blood Pressure 110/63 Pulse Oximetry 99 98 Oxygen Delivery Room Air 03/25/25 16:00 03/25/25 16:00 03/25/25 16:34 Temperature 36.5 C Pulse Rate 69 67 Respiratory Rate 20 Blood Pressure 114/70 Pulse Oximetry 99 98 Oxygen Delivery Room Air 03/25/25 18:00 03/25/25 20:00 03/25/25 20:00 Temperature 36.6 C Pulse Rate 66 65 Respiratory Rate 20 Blood Pressure 120/72 Pulse Oximetry 98 98 Oxygen Delivery Room Air 03/25/25 20:00 03/25/25 22:00 03/25/25 22:02 Temperature Pulse Rate 82 70 Respiratory Rate Blood Pressure Pulse Oximetry 95 Oxygen Delivery Room Air 03/25/25 23:35 03/26/25 00:00 03/26/25 00:00 Temperature 36.6 C Pulse Rate 60 67 Respiratory Rate 20 Blood Pressure 97/57 L Pulse Oximetry 96 96 Oxygen Delivery Room Air 03/26/25 02:00 03/26/25 04:00 03/26/25 04:00 Temperature Pulse Rate 66 66 Respiratory Rate Blood Pressure Pulse Oximetry Oxygen Delivery Room Air 03/26/25 04:00 03/26/25 06:00 03/26/25 08:00 Temperature 36.5 C Pulse Rate 69 61 Respiratory Rate 14 Blood Pressure 125/88 Pulse Oximetry 100 Oxygen Delivery Room Air 03/26/25 08:00 03/26/25 08:28 03/26/25 08:40 Temperature 36.4 C L Pulse Rate 66 68 63 Respiratory Rate 18 Blood Pressure 124/75 Pulse Oximetry 100 Oxygen Delivery Exam 2 Const: General: comfortable and no acute distress HENMT: Mouth: Yes moist mucous membranes Eyes: Sclera: sclerae normal Neck: Neck: supple and no JVD Resp: Effort & Inspection: normal respiratory effort Auscultation: clear to auscultation bilaterally Cardio: Rate: regular rate and bradycardic Other: No murmur no gallop no rub GI: GI Palp: Yes Soft to palpation Auscultation: normal bowel sounds Skin: General skin exam: normal color Neuro: General: gait normal Extrem: General: normal to inspection Results Labs and Meds 03/26/25 04:56 03/26/25 04:56 Lab results: Cardiac Enzymes 03/25/25 03/25/25 03/25/25 Range/Units 10:02 12:58 15:51 AST 26 (14-36) U/L Troponin I < 0.012 < 0.012 < 0.012 (0.000-0.034) ng/mL 03/26/25 Range/Units 06:30 AST (14-36) U/L Troponin I < 0.012 (0.000-0.034) ng/mL Coagulation 03/25/25 03/26/25 Range/Units 10:02 06:26 PT 13.7 14.0 (11.1-14.7) Seconds APTT 25.4 25.5 (22.3-36.8) Seconds Lipids 03/26/25 Range/Units 04:56 Triglycerides 117 (<150) mg/dL Cholesterol 131 (0-200) mg/dL CBC 03/25/25 03/26/25 Range/Units 10:02 04:56 WBC 4.2 L 4.1 L (4.5-10.0) K/mm3 RBC 4.31 4.03 L (4.2-5.4) M/mm3 Hgb 11.7 L 11.0 L (12.0-15.0) g/dL Hct 36.1 L 35.7 L (37.0-47.0) % Plt Count 159 148 L (150-375) k/mm3 Lymph # (Auto) 1.46 (0.9-3.2) K/mm3 [place] # (Auto) 0.3 (0.1-0.6) K/mm3 Eos # (Auto) 0.1 (0-0.3) K/mm3 Baso # (Auto) 0.0 (0.0-0.1) K/mm3 Comprehensive Metabolic Panel 03/25/25 03/26/25 Range/Units 10:02 04:56 Sodium 138 137 (137-145) mmol/L Potassium 3.1 L 3.5 (3.4-5.0) mmol/L Chloride 106 107 (98-107) mmol/L Carbon Dioxide 24 25 (22-30) mmol/L BUN 6 L 7 (7-17) mg/dL Creatinine 0.67 L 0.64 L (0.7-1.0) mg/dL Glucose 104 99 (65-110) mg/dL Calcium 8.7 8.4 (8.4-10.2) mg/dL AST 26 (14-36) U/L ALT 19 (6-35) U/L Alkaline Phosphatase 87 (38-126) U/L Total Protein 7.0 (6.3-8.2) g/dL Albumin 3.9 (3.5-5.1) g/dL Intake and Output 03/25/25 03/26/25 03/26/25 23:59 07:59 15:59 Intake Total 590 Output Total 500 200 Balance 90 -200 Intake: Oral 590 Output: Urine 500 200 Patient Weight 03/26/25 23:59 Weight 99.5 kg
[2025-03-26 10:03] LABS: Troponin I < 0.012 ng/mL (0.000-0.034)
[2025-03-26] MEDS: MORPHINE SULFATE (*CRX) 2 MG/ML INJ IV PUSH (11:24)
[2025-03-26 12:47] LABS: Partial Thromboplastin Time 45.9 Seconds (22.3-36.8)
[2025-03-26 12:48] LABS: Troponin I < 0.012 ng/mL (0.000-0.034)
[2025-03-26] MEDS: HEPARIN SODIUM 5,000 UNITS/ML VIAL 4000 UNITS IV PUSH (12:57)
--- NOTE | 2025-03-26 13:15 | WPDHPUPDATE1 ---
History and Physical Update Update Date/Time: 03/26/25 13:15 History and Physical has been reviewed, including an updated exam of the patient. There are NO changes in the patient's condition. Risks, benefits, and alternatives have been discussed and questions answered. Patient agrees to proceed with procedure.
--- NOTE | 2025-03-26 13:15 | WPDMODSED ---
Moderate Sedation Note-Pt Data Patient Data Diagnosis: Coronary artery disease Present Complaint: Coronary artery disease Procedure to be performed/Plan: Coronary angiography, left heart cath, +/- PCI Allergies Allergy/AdvReac Type Severity Reaction Status Date / Time No Known Allergies Allergy Verified 08/18/24 16:42 Home Medications ?Medication ?Instructions ?Recorded ?Confirmed ?Type atorvastatin 20 mg tablet 40 mg PO HS 09/29/19 03/25/25 History clopidogrel 75 mg tablet (Plavix) 75 mg PO DAILY 09/29/19 03/25/25 History nitroglycerin 0.4 mg sublingual 0.4 mg sublingual Q5M PRN Chest 09/29/19 03/25/25 History tablet Pain pantoprazole 40 mg tablet,delayed 40 mg PO BID 09/29/19 03/25/25 History release albuterol sulfate 90 mcg/actuation 1 - 2 puff inhalation QID PRN 11/19/20 03/25/25 History aerosol inhaler Shortness Of Breath Or Wheezing fluoxetine 10 mg capsule 10 mg PO DAILY 08/14/22 03/25/25 History fluoxetine 40 mg capsule 80 mg PO DAILY 08/14/22 03/25/25 History metoprolol succinate 25 mg 12.5 mg PO DAILY 08/14/22 03/25/25 History tablet,extended release 24 hr famotidine 20 mg tablet 20 mg PO DAILY 10/05/22 03/25/25 History amlodipine 5 mg tablet 5 mg PO DAILY 04/13/24 03/25/25 History aspirin 81 mg chewable tablet 81 mg PO DAILY 04/13/24 03/25/25 History hydroxyzine HCl 50 mg tablet 50 mg PO TID 04/13/24 03/25/25 History fluticasone propionate 50 2 spray intranasal Q12H PRN 03/25/25 03/25/25 History mcg/actuation nasal allergy symptoms spray,suspension furosemide 20 mg tablet 20 mg PO DAILY 03/25/25 03/25/25 History Current Medications: Active Medications Acetaminophen (Acetaminophen 325 Mg Tablet) 650 mg PO Q4H PRN PRN Reason: Mild Pain (1-3) or Fever Hydrocodone Bitart/Acetaminophen (Hydrocodone/Acetaminophen (*Crx) 5-325 Mg Tablet) 1 tab PO Q4H PRN PRN Reason: Pain Rated 4-6 Albuterol (Albuterol Sulfate (*Sp) Aerosol 1 Puff) 1 - 2 puff INHALATION QID PRN PRN Reason: Shortness Of Breath Or Wheezing Amlodipine Besylate (Amlodipine Besylate 5 Mg Tablet) 5 mg PO DAILY [facility] Last Admin: 03/26/25 08:41 Dose: 5 mg Aspirin (Aspirin 81 Mg Chewable Tablet) 81 mg PO DAILY@0900 [facility] Last Admin: 03/26/25 08:39 Dose: 81 mg Atorvastatin Calcium (Atorvastatin 40 Mg Tablet) 40 mg PO HS [facility] Last Admin: 03/26/25 00:03 Dose: 40 mg Clopidogrel Bisulfate (Clopidogrel Bisulfate 75 Mg Tablet) 75 mg PO DAILY [facility] Last Admin: 03/26/25 09:04 Dose: 75 mg Famotidine (Famotidine 20 Mg Tablet) 20 mg PO DAILY [facility] Last Admin: 03/26/25 08:39 Dose: 20 mg Fluoxetine HCl (Fluoxetine Hcl 20 Mg Capsule) 80 mg PO DAILY [facility] Last Admin: 03/26/25 08:40 Dose: 80 mg Fluticasone Propionate (Fluticasone Propionate 0.05% Na Spr 16 Gm Btl (*Bkc)) 2 spray NASAL DAILY PRN PRN Reason: allergy symptoms Furosemide (Furosemide 20 Mg Tablet) 20 mg PO DAILY [facility] Last Admin: 03/26/25 08:41 Dose: 20 mg Heparin Sodium (Porcine) (Heparin Sodium 5,000 Units/Ml Vial) 4,000 units IV PUSH PRN PRN PRN Reason: aPTT less than 55 seconds Last Admin: 03/26/25 12:57 Dose: 4,000 units Heparin Sodium (Porcine) (Heparin Sodium 5,000 Units/Ml Vial) 3,000 units IV PUSH PRN PRN PRN Reason: aPTT 55 - 70 seconds Heparin Sodium/Dextrose (Heparin Sodium/D5w 100 Units/Ml) 25,000 units in 250 mls @ 12 mls/hr IV CONT .[id number] [facility]; Protocol Last Titration: 03/26/25 12:58 Dose: 1,200 units/hr, 12 mls/hr Metoprolol Succinate (Metoprolol Succinate Ext Rel 12.5 Mg Tabcr) 12.5 mg PO DAILY [facility] Last Admin: 03/26/25 08:40 Dose: 12.5 mg Morphine Sulfate (Morphine Sulfate (*Crx) 2 Mg/Ml Inj) 2 mg IV PUSH Q4H PRN PRN Reason: Pain Rated 7-10 Last Admin: 03/26/25 11:24 Dose: 2 mg Nicotine (Nicotine (*Pbkc) 14 Mg Patch) 1 patch TRANSDERM DAILY [facility] Last Admin: 03/26/25 08:50 Dose: 1 patch Nitroglycerin (Nitroglycerin Sl 0.4 Mg Tablet) 0.4 mg SUBLINGUAL Q5MIN PRN PRN Reason: Chest Pain Last Admin: 03/26/25 08:56 Dose: 0.4 mg Ondansetron HCl (Ondansetron Inj 4 Mg/2 Ml Vial) 4 mg IV PUSH Q4H PRN PRN Reason: Nausea Last Admin: 03/26/25 00:03 Dose: 4 mg Pantoprazole Sodium (Pantoprazole 40 Mg Tablet) 40 mg PO BID [facility] Last Admin: 03/26/25 08:50 Dose: 40 mg Sedation/Anesthesia: No previous sedation/anesthesia problems (including family history). [facility] Past Medical History Medical History Depression with anxiety Gastroesophageal reflux disease Obstructive sleep apnea Coronary artery disease Hypertension Dyslipidemia Surgical History Surgical History History of section History of bilateral breast reduction surgery History of hysterectomy History of coronary artery stent placement left circumflex Social History Social History Social History: Surrogate medical decision maker: Dany Barbosa, significant other. Code status: Full code. Smoking packs per day: 0.5 Smoking cigarettes per day: 10.0 Years smoked: 33 Smoking pack-years: 16.50 Smoking status: Current every day smoker Tobacco type: cigarettes Alcohol intake: current Substance use: never Do You Feel Safe in your Home?: Yes Lack of Transportation: No Lack of Food: Never True Current Housing: I Have Housing Concerned About Future Housing: No Difficulty Paying Gas/Electric Bills: No Difficulty Paying for Meds: No Currently Unemployed: No Education: High School Diploma/GED Difficulty w/ Childcare or Family Care: No Living arrangements: with family Spiritual care concerns: No Mod Sed Physical Exam Physical Exam Pre Procedural Exam: Normal: Appearance, Lungs, Heart Rate, Heart Rhythm, Neuro Exam, Extremities and Skin Hours since solid foods: 13 Hours since liquid intake: 8 Mallampati Classification: class III Internal Medicine - PN: Obj Da Vital Signs Vital Signs: Vital Signs - 24 hr 03/25/25 13:17 03/25/25 13:40 03/25/25 14:00 Temperature 36.8 C Pulse Rate 97 61 Respiratory Rate 20 20 Blood Pressure 106/74 110/63 Pulse Oximetry 99 99 98 Oxygen Delivery Room Air 03/25/25 14:00 03/25/25 16:00 03/25/25 16:00 Temperature Pulse Rate 58 L 69 Respiratory Rate Blood Pressure Pulse Oximetry 99 Oxygen Delivery Room Air 03/25/25 16:34 03/25/25 18:00 03/25/25 20:00 Temperature 36.5 C 36.6 C Pulse Rate 67 66 65 Respiratory Rate 20 20 Blood Pressure 114/70 120/72 Pulse Oximetry 98 98 Oxygen Delivery 03/25/25 20:00 03/25/25 20:00 03/25/25 22:00 Temperature Pulse Rate 82 70 Respiratory Rate Blood Pressure Pulse Oximetry 98 Oxygen Delivery Room Air 03/25/25 22:02 03/25/25 23:35 03/26/25 00:00 Temperature 36.6 C Pulse Rate 60 Respiratory Rate 20 Blood Pressure 97/57 L Pulse Oximetry 95 96 96 Oxygen Delivery Room Air Room Air 03/26/25 00:00 03/26/25 02:00 03/26/25 04:00 Temperature Pulse Rate 67 66 Respiratory Rate Blood Pressure Pulse Oximetry Oxygen Delivery Room Air 03/26/25 04:00 03/26/25 04:00 03/26/25 06:00 Temperature 36.5 C Pulse Rate 66 69 61 Respiratory Rate 14 Blood Pressure 125/88 Pulse Oximetry 100 Oxygen Delivery 03/26/25 08:00 03/26/25 08:00 03/26/25 08:28 Temperature 36.4 C L Pulse Rate 66 68 Respiratory Rate 18 Blood Pressure 124/75 Pulse Oximetry 100 Oxygen Delivery Room Air 03/26/25 08:40 03/26/25 10:00 03/26/25 11:56 Temperature 36.6 C Pulse Rate 63 72 63 Respiratory Rate 20 Blood Pressure 127/84 Pulse Oximetry 98 Oxygen Delivery 03/26/25 12:00 Temperature Pulse Rate Respiratory Rate Blood Pressure Pulse Oximetry Oxygen Delivery Room Air Intake/Output Intake/Output: Intake & Output 03/23/25 03/24/25 03/25/25/31/25 23:59 23:59 23:59 23:59 Intake Total 830 57.4 Output Total 500 600 Balance 330 -542.6 Meds/Results Medications: Active Medications Generic Name Dose Route Start Last Admin Trade Name Freq PRN Reason Stop Dose Admin Acetaminophen 650 mg 03/25/25 12:46 Acetaminophen 325 Mg Tablet PO Q4H PRN Mild Pain (1-3) or Fever Hydrocodone Bitart/Acetaminophen 1 tab 03/25/25 12:46 Hydrocodone/Acetaminophen (*Crx) 5-325 Mg Tablet PO Q4H PRN Pain Rated 4-6 Albuterol 1 - 2 puff 03/25/25 22:42 Albuterol Sulfate (*Sp) Aerosol 1 Puff INHALATION QID PRN Shortness Of Breath Or Wheezing Amlodipine Besylate 5 mg 03/26/25 09:00 03/26/25 08:41 Amlodipine Besylate 5 Mg Tablet PO 5 mg DAILY [facility] Administration Aspirin 81 mg 03/26/25 09:00 03/26/25 08:39 Aspirin 81 Mg Chewable Tablet PO 81 mg DAILY@0900 [facility] Administration Atorvastatin Calcium 40 mg 03/25/25 22:50 03/26/25 00:03 Atorvastatin 40 Mg Tablet PO 40 mg HS [facility] Administration Clopidogrel Bisulfate 75 mg 03/26/25 09:00 03/26/25 09:04 Clopidogrel Bisulfate 75 Mg Tablet PO 75 mg DAILY [facility] Administration Famotidine 20 mg 03/26/25 09:00 03/26/25 08:39 Famotidine 20 Mg Tablet PO 20 mg DAILY [facility] Administration Fluoxetine HCl 80 mg 03/26/25 09:00 03/26/25 08:40 Fluoxetine Hcl 20 Mg Capsule PO 80 mg DAILY [facility] Administration Fluticasone Propionate 2 spray 03/25/25 22:42 Fluticasone Propionate 0.05% Na Spr 16 Gm Btl (*Bkc) NASAL DAILY PRN allergy symptoms Furosemide 20 mg 03/26/25 09:00 03/26/25 08:41 Furosemide 20 Mg Tablet PO 20 mg DAILY [facility] Administration Heparin Sodium (Porcine) 4,000 units 03/26/25 06:16 03/26/25 12:57 Heparin Sodium 5,000 Units/Ml Vial IV PUSH 4,000 units PRN PRN Administration aPTT less than 55 seconds Heparin Sodium (Porcine) 3,000 units 03/26/25 06:16 Heparin Sodium 5,000 Units/Ml Vial IV PUSH PRN PRN aPTT 55 - 70 seconds Heparin Sodium/Dextrose 25,000 units in 250 mls @ 12 mls/hr 03/26/25 06:20 03/26/25 12:58 Heparin Sodium/D5w 100 Units/Ml IV CONT 1,200 units/hr .[id number] [facility] 12 mls/hr Titration Protocol 1,200 UNITS/HR Metoprolol Succinate 12.5 mg 03/26/25 09:00 03/26/25 08:40 Metoprolol Succinate Ext Rel 12.5 Mg Tabcr PO 12.5 mg DAILY [facility] Administration Morphine Sulfate 2 mg 03/26/25 09:50 03/26/25 11:24 Morphine Sulfate (*Crx) 2 Mg/Ml Inj IV PUSH 2 mg Q4H PRN Administration Pain Rated 7-10 Nicotine 1 patch 03/25/25 21:05 03/26/25 08:50 Nicotine (*Pbkc) 14 Mg Patch TRANSDERM 1 patch DAILY [facility] Administration Nitroglycerin 0.4 mg 03/26/25 06:32 03/26/25 08:56 Nitroglycerin Sl 0.4 Mg Tablet SUBLINGUAL 0.4 mg Q5MIN PRN Administration Chest Pain Ondansetron HCl 4 mg 03/25/25 12:46 03/26/25 00:03 Ondansetron Inj 4 Mg/2 Ml Vial IV PUSH 4 mg Q4H PRN Administration Nausea Pantoprazole Sodium 40 mg 03/26/25 09:00 03/26/25 08:50 Pantoprazole 40 Mg Tablet PO 40 mg BID [facility] Administration Radiology Results: ITS Impressions Chest X-Ray 03/25/25 10:38 IMPRESSION: 1: NO ACUTE CARDIOPULMONARY DISEASE. Labs 03/26/25 04:56 03/26/25 04:56 Labs: Laboratory Results - last 24 hr 03/25/25 03/25/25 03/26/25 12:58 15:51 04:56 WBC 4.1 L RBC 4.03 L Hgb 11.0 L Hct 35.7 L MCV 88.6 D MCH 27.3 MCHC 30.8 L RDW 14.5 Plt Count 148 L MPV 11.6 H PT INR APTT Sodium 137 Potassium 3.5 Chloride 107 Carbon Dioxide 25 Anion Gap 5 BUN 7 Creatinine 0.64 L Estim Creat Clear Calc 104 Estimated GFR > 60 Glucose 99 Hemoglobin A1c 5.4 Calcium 8.4 Magnesium 2.0 Troponin I < 0.012 < 0.012 Triglycerides 117 Cholesterol 131 LDL Cholesterol Direct 67 HDL Direct 38 03/26/25 03/26/25 03/26/25 06:26 06:30 09:37 WBC RBC Hgb Hct MCV MCH MCHC RDW Plt Count MPV PT 14.0 INR 1.1 APTT 25.5 Sodium Potassium Chloride Carbon Dioxide Anion Gap BUN Creatinine Estim Creat Clear Calc Estimated GFR Glucose Hemoglobin A1c Calcium Magnesium Troponin I < 0.012 < 0.012 Triglycerides Cholesterol LDL Cholesterol Direct HDL Direct 03/26/25 12:22 WBC RBC Hgb Hct MCV MCH MCHC RDW Plt Count MPV PT INR APTT 45.9 H Sodium Potassium Chloride Carbon Dioxide Anion Gap BUN Creatinine Estim Creat Clear Calc Estimated GFR Glucose Hemoglobin A1c Calcium Magnesium Troponin I < 0.012 Triglycerides Cholesterol LDL Cholesterol Direct HDL Direct ASA Classification/Sedation ASA Classification/Sedation ASA Class: III Emergent: No Risks: Risks, benefits and alternatives explained and patient/family accepted plan for sedation. Patient re-evaluated immediately prior to sedation.
--- NOTE | 2025-03-26 14:11 | P.PCNCC_ITS ---
Cardiac Cath Procedure Note Date of procedure:: 03/26/25 Performing physician:: CATHETERIZATION LABORATORY REPORT Procedure Date: 03/26/2025 County Records Management Officer: Frandy Staley M.D., [facility]? Referring Physician: Issa Clark M.D. ? Anesthesia: Versed and Fentanyl were ordered and given in my presence at 13:48, procedure ended at 14:06. Supervision of nurse monitored moderate sedation with Versed and Fentanyl was provided for 18 minutes. Total of Versed 1mg and Fentanyl 50mcg were administered by the Housing Grant Analyst MARQUITA Echavarria. Pre-op Diagnosis: Coronary artery disease Post-op Diagnosis: 1. Non-obstructive coronary artery disease with patent stent in the distal LCX. 2. Elevated left ventricular end-diastolic pressure of 31mmHg 3. LV angiogram shows normal LV systolic function. Procedure(s): 1. Moderate sedation 2. Ultrasound-guided access of the right radial artery 3. Coronary angiography 4. Left heart cath 5. LV angiogram Access Site: Right radial artery Brief History and Clinical Indications: Patient is a 49 year old female with CAD s/p prior LCX stent in 2018 who is referred for [facility] for unstable angina. All risks, benefits and alternatives to left heart catheterization with or without percutaneous coronary intervention was discussed at length with the patient. Risk of complications including but not limited to bleeding, infection, arrhythmia, stroke, worsening kidney function, blood loss, groin hematoma, limb loss, emergency coronary artery bypass grafting, and even were discussed w ith the patient and all questions were answered. The patient understood and wished to proceed. Time out called, patient name, date of , medical record number, allergies, procedure performed, identify County Records Management Officer, patient and staff member concurred with accurate data, procedure carried on. Findings: LEFT HEART CATHETERIZATION FINDINGS: 1. Left main: The left main coronary artery is widely patent without any significant obstructive disease. 2. Left anterior descending: The LAD has luminal irregularities. Diagonal branches with luminal irregularities. 3. Left circumflex: The left circumflex artery has mild diffuse disease. Patent stent in the distal LCX. There is mild 40% disease proximal to the stent. OM branches with luminal irregularities. 4. Right coronary artery: The RCA is the dominant vessel. There is mild disease in the mid portion. No significant obstructive angiographic disease. 5. Left ventricle: A. End-diastolic pressure 31 mmHg. B. LV gram shows normal LV systolic function without appreciable wall motion abnormalities. C. No significant gradient across aortic valve on catheter pullback. Description of Procedure: Informed consent signed and placed in the chart. Patient transferred to r&d lab technician room. Prepped and draped in usual sterile fashion. 2% lidocaine injected subcutaneously in right wrist area. 22-gauge venipuncture catheter used to access the right radial artery under ultrasound guidance. 6-FR slender sheath placed in right radial artery. Nitroglycerine and Verapamil were given intraarterial through the sheath. Versacore wire advanced under fluoroscopy 5F Ultra 4 diagnostic catheter engaged Left Main Coronary Artery. 5F Ultra 4 diagnostic catheter engaged Right Coronary Artery Multiple orthogonal angiogram obtained and reviewed 5F Pigtail diagnostic catheter crossed aortic valve to obtain LVEDP, LV angiogram obtained. Hemostasis was achieved by application of TR band. Disposition: Floor Plan: Patient with NOCAD with patent stent. Consider microvascular disease vs vasospasm for chest pain vs non-cardiac etiology. Will start Imdur. Stop Heparin drip. Can uptitrate Amlodipine and Metoprolol for antianginal therapy if heart rate/blood pressure allow. Will obtain echocardiogram. The above findings were discussed with the referring physician. Continue aggressive medical therapy and risk factor modification. ? Frandy Staley M.D. Interventional Cardiology
--- NOTE | 2025-03-26 21:33 | PCNEURO ---
Addendum entered by Chriss Monroe RN 03/26/25 21:38: This note was incorrectly put in as a neurology note. It should read as a nursing note. Original Note: The patient has been transferred from ICU-1 back to her room on IMU in 201. She had no complaints of pain or tenderness around the cath site, distal pulses on R Radial are present and palpable, no obvious hematoma or bleeding. She still endorses mild-moderate chest pressure and discomfort. She has had mild dizziness intermittently, otherwise her assessment is negative.
[2025-03-27] VITALS (20 sets, daily range): BP systolic 89–129; BP diastolic 46–86; PULSE 57–85; RESP 14–20; TEMP 36.6–37; O2SAT 92–100
[2025-03-27 04:37] LABS: Basophils Percent Auto 0.9 % (0.2-1.2); Eosinophils Absolute Auto 0.1 K/mm3 (0-0.3); Eosinophils Percent Auto 2.2 % (0-4.4); Hematocrit 36.2 % (37.0-47.0); Hemoglobin 11.3 g/dL (12.0-15.0); Immature Platelet Fraction Pct 7.6 % (0.9-11.2); Lymphocytes Absolute Auto 1.33 K/mm3 (0.9-3.2); Lymphocytes Percent Auto 29.7 % (18.3-44.2); Mean Corpuscular HGB Conc 31.2 g/dl (32-36); Mean Corpuscular Hemoglobin 27.4 pg (26-34); Mean Corpuscular Volume 87.7 fl (80-100); Mean Platelet Volume 11.9 fl (7.4-10.4); Monocytes Absolute Auto 0.3 K/mm3 (0.1-0.6); Monocytes Percent Auto 6.5 % (2.6-8.5); Neutrophils Absolute Auto 2.7 K/mm3 (1.3-6.7); Neutrophils Percent Auto 60.7 % (45.5-73.1); Platelet Count Result 140 k/mm3 (150-375); Red Blood Count 4.13 M/mm3 (4.2-5.4); Red Cell Distribution Width 14.4 % (11.5-14.5); White Blood Count 4.5 K/mm3 (4.5-10.0)
[2025-03-27] MEDS: NITROGLYCERIN SL 0.4 MG TABLET SUBLINGUAL ×2 (06:00→20:22)
[2025-03-27] MEDS: FLUoxetine HCL 20 MG CAPSULE 80 MG PO (08:44)
[2025-03-27] MEDS: CLOPIDOGREL BISULFATE 75 MG TABLET PO (08:44)
[2025-03-27] MEDS: METOPROLOL SUCCINATE EXT REL 12.5 MG TABCR PO (08:44)
[2025-03-27] MEDS: FAMOTIDINE 20 MG TABLET PO (08:44)
[2025-03-27] MEDS: ISOSORBIDE MONONITRATE 30 MG TAB.ER.24H PO (08:44)
[2025-03-27] MEDS: FUROSEMIDE 20 MG TABLET PO (08:45)
[2025-03-27] MEDS: ASPIRIN 81 MG CHEWABLE TABLET PO (08:45)
[2025-03-27] MEDS: PANTOPRAZOLE 40 MG TABLET PO ×2 (08:45→20:21)
[2025-03-27] MEDS: amLODIPine BESYLATE 5 MG TABLET PO (08:45)
[2025-03-27 09:53] LABS: Anion Gap 4 mmol/L (4-12); Blood Urea Nitrogen 8 mg/dL (7-17); Calcium 8.5 mg/dL (8.4-10.2); Carbon Dioxide 28 mmol/L (22-30); Chloride 104 mmol/L (98-107); Estimated CRCL calculation 105 ml/min; Estimated Glomerular Filt Rate > 60; Glucose 88 mg/dL (65-110); Potassium 3.4 mmol/L (3.4-5.0); Sodium 136 mmol/L (137-145)
--- NOTE | 2025-03-27 10:23 | PM.PNCARD ---
Progress Note: A&P Assessment and Plan (1) Coronary artery disease: Code(s): I25.10 - Atherosclerotic heart disease of [place] coronary artery without angina pectoris Status: Acute Plan 49-year-old lady with coronary artery disease, previous PCI to the circumflex 8 years ago. She was hospitalized with worrisome chest pain and was found yesterday to be well revascularized. For the possibility of spasm isosorbide has been added to her regimen. She is stable to be discharged in my opinion. An echocardiogram has been requested however in my opinion this does not have to hold up her discharge. She follows with a cleaning team member elsewhere and can certainly pursue an echocardiogram as an outpatient. If it is preferred to keep her in the hospital today obtain a sonogram on Friday that is fine. There is no additional cardiac recommendation from my perspective I will sign off of her care at this time and anticipate after discharge she will follow-up with her established physicians who see her up in [place]. Issa Clark MD [facility] Subjective Date/time seen: Date of service: 03/27/25 10:23 Interval history: Follow-up visit in this 49-year-old woman with: Coronary artery disease, remote history of stenting of the distal circumflex. Patient admitted to the hospital with pressure-like chest pain but with no objective evidence of myocardial injury. She was brought to the cath lab manager yesterday and found to have no significant coronary stenosis. This is her 2nd catheterization inside of a here that did not demonstrate any significant disease. She has been started on isosorbide for the possibility of coronary spasm/microvascular angina. She feels well this morning and offers no additional complaints. Exam Const: General: comfortable and no acute distress Other: Pleasant obese lady no apparent distress HENMT: Mouth: Yes moist mucous membranes Eyes: Sclera: sclerae normal Neck: Neck: supple and no JVD Resp: Effort & Inspection: normal respiratory effort Auscultation: clear to auscultation bilaterally Cardio: Rate: regular rate Rhythm: regular rhythm GI: GI Palp: Yes Soft to palpation Auscultation: normal bowel sounds Skin: General skin exam: normal color Neuro: Other: Normal cognition Extrem: General: normal to inspection Objective Data Vital Signs Vital Signs: Vital Signs - 24 hr 03/26/25 11:56 03/26/25 12:00 03/26/25 12:00 Temperature 36.6 C Pulse Rate 63 63 Pulse Rate [Right Radial Palpation] Respiratory Rate 20 Blood Pressure 127/84 Pulse Oximetry 98 Oxygen Delivery Room Air 03/26/25 14:30 03/26/25 14:46 03/26/25 15:01 Temperature Pulse Rate 67 60 60 Pulse Rate [Right Radial Palpation] Respiratory Rate 14 17 17 Blood Pressure 125/89 124/91 H 124/91 H Pulse Oximetry 96 93 93 Oxygen Delivery 03/26/25 15:16 03/26/25 15:31 03/26/25 15:45 Temperature Pulse Rate 59 L 56 L 68 Pulse Rate [Right Radial Palpation] Respiratory Rate 16 11 L 14 Blood Pressure 130/97 H 115/78 125/103 H Pulse Oximetry 97 91 95 Oxygen Delivery 03/26/25 16:00 03/26/25 16:00 03/26/25 16:00 Temperature Pulse Rate 68 63 Pulse Rate [Right Radial Palpation] Respiratory Rate 14 Blood Pressure 137/90 Pulse Oximetry 94 Oxygen Delivery Room Air 03/26/25 16:00 03/26/25 16:13 03/26/25 16:15 Temperature Pulse Rate 65 69 65 Pulse Rate [Right Radial Palpation] Respiratory Rate 14 14 14 Blood Pressure 104/81 103/69 123/89 Pulse Oximetry 96 94 94 Oxygen Delivery 03/26/25 16:35 03/26/25 16:55 03/26/25 17:09 Temperature Pulse Rate 69 73 69 Pulse Rate [Right Radial Palpation] Respiratory Rate 14 14 14 Blood Pressure 105/86 104/81 117/66 Pulse Oximetry 95 94 95 Oxygen Delivery 03/26/25 17:51 03/26/25 18:00 03/26/25 18:27 Temperature Pulse Rate 67 71 81 Pulse Rate [Right Radial Palpation] Respiratory Rate 14 14 Blood Pressure 119/79 120/80 Pulse Oximetry 97 95 Oxygen Delivery 03/26/25 18:57 03/26/25 19:55 03/26/25 20:00 Temperature 36.9 C 36.8 C Pulse Rate 67 64 Pulse Rate [Right Radial Palpation] 68 Respiratory Rate 14 95 H Blood Pressure 125/69 112/72 Pulse Oximetry 95 96 95 Oxygen Delivery Autopap 03/26/25 20:00 03/26/25 20:00 03/26/25 20:01 Temperature 36.9 C Pulse Rate 68 67 Pulse Rate [Right Radial Palpation] 68 Respiratory Rate 14 Blood Pressure 125/69 Pulse Oximetry 95 Oxygen Delivery Room Air 03/26/25 21:39 03/26/25 22:00 03/26/25 22:03 Temperature 36.9 C Pulse Rate 67 67 65 Pulse Rate [Right Radial Palpation] 68 Respiratory Rate 14 Blood Pressure 125/69 122/90 Pulse Oximetry 95 98 Oxygen Delivery 03/27/25 00:00 03/27/25 00:00 03/27/25 00:00 Temperature 36.8 C Pulse Rate 63 75 Pulse Rate [Right Radial Palpation] Respiratory Rate 14 Blood Pressure 124/86 Pulse Oximetry 95 Oxygen Delivery Room Air 03/27/25 02:00 03/27/25 03:32 03/27/25 04:00 Temperature 36.8 C Pulse Rate 78 73 Pulse Rate [Right Radial Palpation] Respiratory Rate 14 Blood Pressure 100/59 L Pulse Oximetry 92 Oxygen Delivery Room Air 03/27/25 04:00 03/27/25 06:00 03/27/25 08:19 Temperature 36.6 C Pulse Rate 66 85 77 Pulse Rate [Right Radial Palpation] Respiratory Rate 20 Blood Pressure 129/80 Pulse Oximetry 96 Oxygen Delivery Intake/Output Intake/Output: Intake & Output 03/24/25 03/25/25 03/26/25 03/27/25 23:59 23:59 23:59 23:59 Intake Total 830 537.4 830 Output Total 500 1500 100 Balance 330 -962.6 730 Meds/Results Medications: Active Medications Generic Name Dose Route Start Last Admin Trade Name Freq PRN Reason Stop Dose Admin Acetaminophen 650 mg 03/25/25 12:46 Acetaminophen 325 Mg Tablet PO Q4H PRN Mild Pain (1-3) or Fever Hydrocodone Bitart/Acetaminophen 1 tab 03/25/25 12:46 Hydrocodone/Acetaminophen (*Crx) 5-325 Mg Tablet PO Q4H PRN Pain Rated 4-6 Albuterol 1 - 2 puff 03/25/25 22:42 Albuterol Sulfate (*Sp) Aerosol 1 Puff INHALATION QID PRN Shortness Of Breath Or Wheezing Amlodipine Besylate 5 mg 03/26/25 09:00 03/27/25 08:45 Amlodipine Besylate 5 Mg Tablet PO 5 mg DAILY PAPO Administration Aspirin 81 mg 03/26/25 09:00 06/01/25 08:45 Aspirin 81 Mg Chewable Tablet PO 81 mg DAILY@0900 COUNT INCLUDES THE [facility] Administration Atorvastatin Calcium 40 mg 03/25/25 22:50 03/26/25 21:03 Atorvastatin 40 Mg Tablet PO 40 mg HS COUNT INCLUDES THE [facility] Administration Clopidogrel Bisulfate 75 mg 03/26/25 09:00 03/27/25 08:44 Clopidogrel Bisulfate 75 Mg Tablet PO 75 mg DAILY PAPO Administration Famotidine 20 mg 03/26/25 09:00 03/27/25 08:44 Famotidine 20 Mg Tablet PO 20 mg DAILY PAPO Administration Fluoxetine HCl 80 mg 03/26/25 09:00 03/27/25 08:44 Fluoxetine Hcl 20 Mg Capsule PO 80 mg DAILY COUNT INCLUDES THE [facility] Administration Fluticasone Propionate 2 spray 03/25/25 22:42 Fluticasone Propionate 0.05% Na Spr 16 Gm Btl (*Bkc) NASAL DAILY PRN allergy symptoms Furosemide 20 mg 03/26/25 09:00 03/27/25 08:45 Furosemide 20 Mg Tablet PO 20 mg DAILY COUNT INCLUDES THE [facility] Administration Isosorbide Mononitrate 30 mg 03/27/25 09:00 03/27/25 08:44 Isosorbide Mononitrate 30 Mg Tab.Er.24h PO 30 mg QAM COUNT INCLUDES THE [facility] Administration Metoprolol Succinate 12.5 mg 03/26/25 09:00 03/27/25 08:44 Metoprolol Succinate Ext Rel 12.5 Mg Tabcr PO 12.5 mg DAILY COUNT INCLUDES THE [facility] Administration Morphine Sulfate 2 mg 03/26/25 09:50 03/26/25 11:24 Morphine Sulfate (*Crx) 2 Mg/Ml Inj IV PUSH 2 mg Q4H PRN Administration Pain Rated 7-10 Nitroglycerin 0.4 mg 03/26/25 06:32 03/27/25 06:00 Nitroglycerin Sl 0.4 Mg Tablet SUBLINGUAL 0.4 mg Q5MIN PRN Administration Chest Pain Ondansetron HCl 4 mg 03/25/25 12:46 03/26/25 15:09 Ondansetron Inj 4 Mg/2 Ml Vial IV PUSH 4 mg Q4H PRN Administration Nausea Pantoprazole Sodium 40 mg 03/26/25 21:00 03/27/25 08:45 Pantoprazole 40 Mg Tablet PO 40 mg Q12HR COUNT INCLUDES THE [facility] Administration Perflutren Lipid Microsphere 0 ml 03/26/25 14:11 Perflutren Lipid Microspheres 1.5 Ml Vial Diluted To 10 Ml Total Volume IV PUSH 03/29/25 14:11 ONCE PRN adequate visualization Protocol Radiology Results: ITS Impressions Chest X-Ray 03/25/25 10:38 IMPRESSION: 1: NO ACUTE CARDIOPULMONARY DISEASE. Labs Labs: Laboratory Results - last 24 hr 03/26/25 03/27/25 12:22 03:39 WBC 4.5 RBC 4.13 L Hgb 11.3 L Hct 36.2 L MCV 87.7 MCH 27.4 MCHC 31.2 L RDW 14.4 Plt Count 140 L MPV 11.9 H Immature Gran % (Auto) 0.0 Neut % (Auto) 60.7 Lymph % (Auto) 29.7 [place] % (Auto) 6.5 Eos % (Auto) 2.2 Baso % (Auto) 0.9 Lymph # (Auto) 1.33 [place] # (Auto) 0.3 Eos # (Auto) 0.1 Baso # (Auto) 0.0 Abs Immat Gran (auto) 0.00 Absolute Neuts (auto) 2.7 Absolute Nucleated RBC 0.000 Nucleated RBC % 0.0 % Immature Plt Fraction 7.6 APTT 45.9 H Sodium 136 L Potassium 3.4 Chloride 104 Carbon Dioxide 28 Anion Gap 4 BUN 8 Creatinine 0.62 L Estim Creat Clear Calc 105 Estimated GFR > 60 Glucose 88 Calcium 8.5 Troponin I < 0.012
[2025-03-27] MEDS: NICOTINE (*PBKC) 14 MG PATCH 1 PATCH TRANSDERM (16:44)
--- NOTE | 2025-03-27 18:10 | P.PNIM_ITS ---
Progress Note: A&P Assessment and Plan (1) Chest pain: Code(s): R07.9 - Chest pain, unspecified Status: Inactive (2) Hypokalemia: Code(s): E87.6 - Hypokalemia Status: Acute (3) Coronary artery disease: Code(s): I25.10 - Atherosclerotic heart disease of [place] coronary artery without angina pectoris Status: Acute (4) Hypertension: Code(s): I10 - Essential (primary) hypertension Status: Acute (5) Dyslipidemia: Code(s): E78.5 - Hyperlipidemia, unspecified Status: Acute (6) Gastroesophageal reflux disease: Code(s): K21.9 - Gastro-esophageal reflux disease without esophagitis Status: Acute (7) Obstructive sleep apnea: Code(s): G47.33 - Obstructive sleep apnea (adult) (pediatric) Status: Acute (8) Depression with anxiety: Code(s): F41.8 - Other specified anxiety disorders Status: Acute Plan This is a 49-year-old female smoker with coronary artery disease and history of stents, hypertension, hyperlipidemia, obstructive sleep apnea, gastroesophageal reflux disease, depression, and anxiety who presented to the emergency [facility] via EMS for evaluation of chest pain. 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 She took 1 sublingual nitroglycerin without much benefit and thereafter she began having some numbness and tingling in her left arm and she felt short of breath and nauseated. She took 2 further doses of nitroglycerin without benefit and that did drop her blood pressure. The discomfort is similar to that she experienced prior to her stent to the left circumflex which was apparently in 2017. She has had a cardiac catheterization since that time done in [place] by her [employer] support affiliated with primary Cardiology. At that time she was told she had 60 to 75% blockage of the left circumflex proximal to the previous stent and this was treated medically. She denies syncope, near syncope, pleuritic pain, sweats, vomiting, significant lower extremity edema, and calf pain. At the time my evaluation she is resting comfortably but does report still having intermittent pressure. In the ED: Vital signs on arrival include a blood pressure of 86/44, pulse 75, respiratory rate 18, SpO2 100% room air. Labs were significant for potassium of 3.1 and a troponin of less than 0.012. Chest x-ray was unremarkable. EKG showed sinus rhythm with sinus arrhythmia. She was given aspirin 324 mg she is being admitted in this setting for close monitoring due to her cardiac history. chest pain radiating to the left shoulder. EKG reviewed. Nitroglycerin x3 and did seem to help her discomfort but dropped her blood pressure. Initial troponin was within normal limits an EKG does not demonstrate any concerning ST segment changes. Serial troponins have been negative. She had been started on heparin drip per Cardiology for possible unstable angina. Status post cardiac catheterization 03/26/2025 with stable findings patent stents. Continue dual anti-platelet therapy, statin, and beta-shaka. Imdur added for microvascular disease. Echocardiogram in a.m.. Hypokalemia replace and monitor Dyslipidemia GERD Anxiety depression Sleep apnea on CPAP Tobacco abuse DVT prophylaxis heparin drip Code status full code Subjective Date/time seen: 03/27/25 18:10 Interval history: Just mild chest discomfort reported this a.m.. No other complaints. Review of Systems Review of Systems: All systems reviewed & are unremarkable except as noted in HPI and below Exam Narrative: General: Nontoxic-appearing female sitting up in bed in no acute distress. HEENT: PERRL, EOMI. Sclera anicteric. Oral mucosa moist. Neck: Supple. Respiratory: Lungs are clear to auscultation bilaterally. Cardiovascular: Regular rate and rhythm with S1-S2. No murmur, rub, or gallop. Chest: No tenderness to palpation over the chest wall. Gastrointestinal: Abdomen is soft, nontender, and nondistended with positive bowel sounds. Skin: Warm and dry. No rash or lesions on limited exam. Extremities: No cyanosis, clubbing, or significant edema. Radial and pedal pulses intact. Neurological: Alert. Cranial nerves 2-12 are grossly intact. No gross focal deficits to casual conversation. Psychiatric: Pleasant and cooperative with appropriate mood and affect. Objective Data Vital Signs Vital Signs: Vital Signs - 24 hr 03/26/25 18:27 03/26/25 18:57 03/26/25 19:55 Temperature 98.4 F Pulse Rate 81 67 Pulse Rate [Right Radial Palpation] 68 Respiratory Rate 14 14 Blood Pressure 120/80 125/69 Pulse Oximetry 95 95 96 Oxygen Delivery Autopap 03/26/25 20:00 03/26/25 20:00 03/26/25 20:00 Temperature 98.2 F Pulse Rate 64 68 Pulse Rate [Right Radial Palpation] Respiratory Rate 95 H Blood Pressure 112/72 Pulse Oximetry 95 Oxygen Delivery Room Air 03/26/25 20:01 03/26/25 21:39 03/26/25 22:00 Temperature 98.4 F 98.4 F Pulse Rate 67 67 67 Pulse Rate [Right Radial Palpation] 68 68 Respiratory Rate 14 14 Blood Pressure 125/69 125/69 Pulse Oximetry 95 95 Oxygen Delivery 03/26/25 22:03 03/27/25 00:00 03/27/25 00:00 Temperature 98.3 F Pulse Rate 65 63 Pulse Rate [Right Radial Palpation] Respiratory Rate 14 Blood Pressure 122/90 124/86 Pulse Oximetry 98 95 Oxygen Delivery Room Air 03/27/25 00:00 03/27/25 02:00 03/27/25 03:32 Temperature 98.3 F Pulse Rate 75 78 73 Pulse Rate [Right Radial Palpation] Respiratory Rate 14 Blood Pressure 100/59 L Pulse Oximetry 92 Oxygen Delivery 03/27/25 04:00 03/27/25 04:00 03/27/25 06:00 Temperature Pulse Rate 66 85 Pulse Rate [Right Radial Palpation] Respiratory Rate Blood Pressure Pulse Oximetry Oxygen Delivery Room Air 03/27/25 08:00 03/27/25 08:00 03/27/25 08:19 Temperature 97.9 F Pulse Rate 75 77 Pulse Rate [Right Radial Palpation] Respiratory Rate 20 Blood Pressure 129/80 Pulse Oximetry 96 Oxygen Delivery Room Air 03/27/25 10:00 03/27/25 12:00 03/27/25 12:00 Temperature Pulse Rate 72 63 Pulse Rate [Right Radial Palpation] Respiratory Rate Blood Pressure Pulse Oximetry Oxygen Delivery Room Air 03/27/25 12:02 03/27/25 14:00 03/27/25 16:00 Temperature 98.6 F Pulse Rate 60 61 62 Pulse Rate [Right Radial Palpation] Respiratory Rate 20 Blood Pressure 120/65 Pulse Oximetry 100 Oxygen Delivery 03/27/25 16:00 03/27/25 16:30 03/27/25 16:31 Temperature 98.2 F Pulse Rate 63 Pulse Rate [Right Radial Palpation] Respiratory Rate 20 Blood Pressure 94/58 L 89/46 L Pulse Oximetry 95 Oxygen Delivery Room Air 03/27/25 18:00 Temperature Pulse Rate 65 Pulse Rate [Right Radial Palpation] Respiratory Rate Blood Pressure Pulse Oximetry Oxygen Delivery Intake/Output Intake/Output: Intake & Output 03/24/25 03/25/25 03/26/25 03/27/25 23:59 23:59 23:59 23:59 Intake Total 830 537.4 1430 Output Total 500 1500 1000 Balance 330 -962.6 430 Meds/Results Medications: Active Medications Generic Name Dose Route Start Last Admin Trade Name Freq PRN Reason Stop Dose Admin Acetaminophen 650 mg 03/25/25 12:46 Acetaminophen 325 Mg Tablet PO Q4H PRN Mild Pain (1-3) or Fever Hydrocodone Bitart/Acetaminophen 1 tab 03/25/25 12:46 Hydrocodone/Acetaminophen (*Crx) 5-325 Mg Tablet PO Q4H PRN Pain Rated 4-6 Albuterol 1 - 2 puff 03/25/25 22:42 Albuterol Sulfate (*Sp) Aerosol 1 Puff INHALATION QID PRN Shortness Of Breath Or Wheezing Amlodipine Besylate 5 mg 03/26/25 09:00 03/27/25 08:45 Amlodipine Besylate 5 Mg Tablet PO 5 mg DAILY PAPO Administration Aspirin 81 mg 03/26/25 09:00 03/27/25 08:45 Aspirin 81 Mg Chewable Tablet PO 81 mg DAILY@0900 PAPO Administration Atorvastatin Calcium 40 mg 03/25/25 22:50 03/26/25 21:03 Atorvastatin 40 Mg Tablet PO 40 mg HS PAPO Administration Clopidogrel Bisulfate 75 mg 03/26/25 09:00 03/27/25 08:44 Clopidogrel Bisulfate 75 Mg Tablet PO 75 mg DAILY PAPO Administration Famotidine 20 mg 03/26/25 09:00 03/27/25 08:44 Famotidine 20 Mg Tablet PO 20 mg DAILY PAPO Administration Fluoxetine HCl 80 mg 03/26/25 09:00 03/27/25 08:44 Fluoxetine Hcl 20 Mg Capsule PO 80 mg DAILY PAPO Administration Fluticasone Propionate 2 spray 03/25/25 22:42 Fluticasone Propionate 0.05% Na Spr 16 Gm Btl (*Bkc) NASAL DAILY PRN allergy symptoms Furosemide 20 mg 03/26/25 09:00 03/27/25 08:45 Furosemide 20 Mg Tablet PO 20 mg DAILY PAPO Administration Isosorbide Mononitrate 30 mg 03/27/25 09:00 03/27/25 08:44 Isosorbide Mononitrate 30 Mg Tab.Er.24h PO 30 mg QAM PAPO Administration Metoprolol Succinate 12.5 mg 03/26/25 09:00 03/27/25 08:44 Metoprolol Succinate Ext Rel 12.5 Mg Tabcr PO 12.5 mg DAILY PAPO Administration Morphine Sulfate 2 mg 03/26/25 09:50 03/26/25 11:24 Morphine Sulfate (*Crx) 2 Mg/Ml Inj IV PUSH 2 mg Q4H PRN Administration Pain Rated 7-10 Nicotine 1 patch 03/27/25 16:10 03/27/25 16:44 Nicotine (*Pbkc) 14 Mg Patch TRANSDERM 1 patch DAILY PAPO Administration Nitroglycerin 0.4 mg 03/26/25 06:32 03/27/25 06:00 Nitroglycerin Sl 0.4 Mg Tablet SUBLINGUAL 0.4 mg Q5MIN PRN Administration Chest Pain Ondansetron HCl 4 mg 03/25/25 12:46 03/26/25 15:09 Ondansetron Inj 4 Mg/2 Ml Vial IV PUSH 4 mg Q4H PRN Administration Nausea Pantoprazole Sodium 40 mg 03/26/25 21:00 03/27/25 08:45 Pantoprazole 40 Mg Tablet PO 40 mg Q12HR PAPO Administration Perflutren Lipid Microsphere 0 ml 03/26/25 14:11 Perflutren Lipid Microspheres 1.5 Ml Vial Diluted To 10 Ml Total Volume IV PUSH 03/29/25 14:11 ONCE PRN adequate visualization Protocol Radiology Results: ITS Impressions Chest X-Ray 03/25/25 10:38 IMPRESSION: 1: NO ACUTE CARDIOPULMONARY DISEASE. Labs Labs: Laboratory Results - last 24 hr 03/27/25 03:39 WBC 4.5 RBC 4.13 L Hgb 11.3 L Hct 36.2 L MCV 87.7 MCH 27.4 MCHC 31.2 L RDW 14.4 Plt Count 140 L MPV 11.9 H Immature Gran % (Auto) 0.0 Neut % (Auto) 60.7 Lymph % (Auto) 29.7 [place] % (Auto) 6.5 Eos % (Auto) 2.2 Baso % (Auto) 0.9 Lymph # (Auto) 1.33 [place] # (Auto) 0.3 Eos # (Auto) 0.1 Baso # (Auto) 0.0 Abs Immat Gran (auto) 0.00 Absolute Neuts (auto) 2.7 Absolute Nucleated RBC 0.000 Nucleated RBC % 0.0 % Immature Plt Fraction 7.6 Sodium 136 L Potassium 3.4 Chloride 104 Carbon Dioxide 28 Anion Gap 4 BUN 8 Creatinine 0.62 L Estim Creat Clear Calc 105 Estimated GFR > 60 Glucose 88 Calcium 8.5
[2025-03-27] MEDS: SODIUM CHLORIDE 0.9% IV 500 ML IV CONT (18:51)
[2025-03-27] MEDS: ATORVASTATIN 40 MG TABLET PO (20:21)
[2025-03-27] MEDS: ACETAMINOPHEN 325 MG TABLET 650 MG PO (20:30)
[2025-03-28] VITALS (11 sets, daily range): BP systolic 93–114; BP diastolic 55–76; PULSE 57–73; RESP 18–20; TEMP 36.7–37; O2SAT 97–100
--- NOTE | 2025-03-28 | ECHO_ITS ---
Patient Info Name: Annette Swift Age: 49 years : 1975 Gender: Female Ht: 63 in Wt: 219 lbs BSA: 2.15 m2 HR: 59 bpm BP: 113 / 73 mmHg Technical Quality: Good Exam Date: 03/28/2025 12:19 PM Patient Status: I Admit Date: 03/25/2025 Exam Type: CA echo doppler color flow Complete two-dimensional, color flow and Doppler transthoracic echocardiogram is performed. Staff Referring Physician: Leonard White MD Flavoring Maker: Jacque Denny Attending Provider: Elroy Priest Summary 1. Complete two-dimensional, color flow and Doppler transthoracic echocardiogram is performed. 2. There is normal biventricular size and systolic function. 3. There are no significant valvular abnormalities. Left Ventricle The left ventricle is normal in size and systolic function. There is mild concentric left ventricular hypertrophy. The left ventricular ejection fraction is visually estimated to be 60-65%. Right Ventricle The right ventricle is normal in size and systolic function. Left Atria The left atrium is normal size. Right Atria The right atrium is normal size. Atrial Septum The atrial septum is not well visualized. Aortic Valve The aortic valve is trileaflet and opens well. There is no aortic regurgitation. Pulmonic Valve The pulmonic valve is not well visualized. There is no color Doppler evidence of pulmonic valve regurgitation. Mitral Valve The mitral valve is normal. Tricuspid Valve The tricuspid valve is normal. There is mild tricuspid regurgitation. Pericardium/Pleural Pericardium is normal in appearance with no evidence for significant pericardial effusion. Inferior Vena Cava Dilated inferior vena cava with <50% collapse upon inspiration consistent with elevated right atrial pressure, 8 mmHg. Aorta The aortic root at the level of the sinus of Valsalva measures 3.2 cm in diameter. Left Ventricular Outflow Tract Name Value Normal LVOT 2D LVOT Diameter 1.9 cm LVOT Doppler LVOT Peak Velocity 115 cm/s LVOT Peak Gradient 5 mmHg LVOT Mean Gradient 3 mmHg LVOT VTI 30 cm LVOT VTI/AV VTI Ratio 0.7 LVOT Stroke Volume 90 ml LVOT CO 15.2 l/min LVOT CI 7.1 l/min/m2 Pulmonic Valve Name Value Normal PV Doppler PV Peak Velocity 127 cm/s PV Peak Gradient 6 mmHg Mitral Valve Name Value Normal MV Diastolic Function MV E Peak Velocity 99 cm/s MV A Peak Velocity 71 cm/s MV E/A 1.4 MV Decel Time (PW) 220 ms MV Annular TDI MV E/e' (Septal) 14.5 MV E/e' (Lateral) 10.2 MV E/e' (Average) 12.4 Tricuspid Valve Name Value Normal TV Regurgitation Doppler TR Peak Velocity 297 cm/s TR Peak Gradient 30 mmHg Estimated PAP/RSVP RA Pressure 8 mmHg <=5 PA Systolic Pressure 43 mmHg <36 RV Systolic Pressure 43 mmHg <36 TV Annular TDI TV Lateral Kika s' Velocity 14.2 cm/s >=9.5 Aorta Name Value Normal Ascending Aorta Ao Root Diameter (MM) 3.4 cm Ao Root Diam Index (MM) 1.6 cm/m2 Aortic Valve Name Value Normal AV Doppler AV Peak Velocity 175 cm/s AV Peak Gradient 12 mmHg AV Mean Gradient 7 mmHg AV VTI 42 cm AV Area (Cont Eq VTI) 2.2 cm2 >=3.0 AV Area (Cont Eq Bryce) 2.0 cm2 AV DI (Bryce) 0.66 AV Regurgitation 2D LVOT Area 3.0 cm2 Ventricles Name Value Normal LV Dimensions 2D/MM IVS Diastolic Thickness (2D) 1.2 cm 0.6-1.0 LVID Diastole (2D) 4.9 cm 3.8-5.2 LVIW Diastolic Thickness (2D) 1.2 cm 0.6-0.9 LVID Systole (2D) 3.4 cm 2.2-3.5 LVOT Diameter 1.9 cm LV Mass (2D Cubed) 221.66 g 67.00-162.00 LV Mass Index (2D Cubed) 103 g/m2 43-95 Relative Wall Thickness (2D) 0.49 <=0.42 LV Fractional Shortening/Ejection Fraction 2D/MM LV Fractional Shortening (2D) 30 % 27-45 LV EF (2D Teichholz) 57 % LV Diastolic Volume (4C MOD) 96 ml LV EF (4C MOD) 69 % LV Diastolic Volume (2C MOD) 79 ml LV EF (2C MOD) 64 % LV Diastolic Volume (BP MOD) 87 ml 46-106 LV Diastolic Volume Index (BP MOD) 40 ml/m2 29-61 LV Systolic Volume (BP MOD) 29 ml 14-42 LV Systolic Volume Index (BP MOD) 14 ml/m2 8-24 LV EF (BP MOD) 66 % 54-74 LV Diastolic Length (4C) 7.7 cm LV Systolic Length (4C) 5.9 cm LV Stroke Volume (4C MOD) 66 ml RV Dimensions 2D/MM RVID Diastole (2D) 4.0 cm 2.1-3.5 Atria Name Value Normal LA Dimensions LA Dimension (MM) 4.6 cm 2.7-3.8 LA Volume (4C A-L) 63 ml LA Volume (BP A-L) 57 ml RA Dimensions RA Systolic Major Musella Length (4C) 5.3 cm 2.2-2.8 RA Area (4C) 17.2 cm2 <=18.0 Report Signatures
[2025-03-28 04:47] LABS: Basophils Absolute Auto 0.1 K/mm3 (0.0-0.1); Eosinophils Absolute Auto 0.1 K/mm3 (0-0.3); Eosinophils Percent Auto 2.5 % (0-4.4); Hematocrit 33.6 % (37.0-47.0); Hemoglobin 10.5 g/dL (12.0-15.0); Immature Granulocyte Absolute 0.02 K/mm3 (0.00-0.031); Immature Granulocyte Percent A 0.4 % (0-0.5); Lymphocytes Absolute Auto 1.17 K/mm3 (0.9-3.2); Lymphocytes Percent Auto 24.3 % (18.3-44.2); Mean Corpuscular HGB Conc 31.3 g/dl (32-36); Mean Corpuscular Hemoglobin 27.3 pg (26-34); Mean Corpuscular Volume 87.5 fl (80-100); Mean Platelet Volume 12.1 fl (7.4-10.4); Monocytes Absolute Auto 0.4 K/mm3 (0.1-0.6); Monocytes Percent Auto 8.3 % (2.6-8.5); Neutrophils Absolute Auto 3.1 K/mm3 (1.3-6.7); Neutrophils Percent Auto 63.5 % (45.5-73.1); Platelet Count Result 133 k/mm3 (150-375); Red Blood Count 3.84 M/mm3 (4.2-5.4); Red Cell Distribution Width 14.3 % (11.5-14.5); White Blood Count 4.8 K/mm3 (4.5-10.0)
--- NOTE | 2025-03-28 04:47 | PC.NURSE ---
I have reviewed Donna's assessment of her pt. and thecharting regarding this pt. and I agree with her assessment and charting of her pt.
[2025-03-28 04:58] LABS: Alanine Aminotransferase 13 U/L (6-35); Albumin Level 3.4 g/dL (3.5-5.1); Alkaline Phosphatase 72 U/L (38-126); Anion Gap 4 mmol/L (4-12); Aspartate Amino Transferase 17 U/L (14-36); Bilirubin,Total 0.3 mg/dL (0.2-1.3); Blood Urea Nitrogen 11 mg/dL (7-17); Calcium 8.4 mg/dL (8.4-10.2); Carbon Dioxide 29 mmol/L (22-30); Chloride 104 mmol/L (98-107); Estimated CRCL calculation 92 ml/min; Estimated Glomerular Filt Rate > 60; Glucose 125 mg/dL (65-110); Magnesium 1.9 mg/dL (1.6-2.3); Potassium 3.2 mmol/L (3.4-5.0); Sodium 137 mmol/L (137-145)
[2025-03-28] MEDS: POTASSIUM CHLORIDE 20 MEQ ER TABLET 40 MEQ PO (08:19)
[2025-03-28] MEDS: ISOSORBIDE MONONITRATE 30 MG TAB.ER.24H PO (08:19)
[2025-03-28] MEDS: FLUoxetine HCL 20 MG CAPSULE 80 MG PO (08:19)
[2025-03-28] MEDS: METOPROLOL SUCCINATE EXT REL 12.5 MG TABCR PO (08:19)
[2025-03-28] MEDS: FAMOTIDINE 20 MG TABLET PO (08:20)
[2025-03-28] MEDS: ASPIRIN 81 MG CHEWABLE TABLET PO (08:20)
[2025-03-28] MEDS: PANTOPRAZOLE 40 MG TABLET PO (08:20)
[2025-03-28] MEDS: CLOPIDOGREL BISULFATE 75 MG TABLET PO (08:20)
[2025-03-28] MEDS: NICOTINE (*PBKC) 14 MG PATCH 1 PATCH TRANSDERM (08:20)
--- NOTE | 2025-03-28 14:58 | P.DS_ITS ---
DS: Admitting Diagnosis Discharge Date 03/28/2025 Admitting Diagnosis Chest pain DS: Discharge Diagnosis Discharge Diagnosis (1) Chest pain: Code(s): R07.9 - Chest pain, unspecified Status: Inactive (2) Hypokalemia: Code(s): E87.6 - Hypokalemia Status: Acute (3) Coronary artery disease: Code(s): I25.10 - Atherosclerotic heart disease of [place] coronary artery without angina pectoris Status: Acute (4) Hypertension: Code(s): I10 - Essential (primary) hypertension Status: Acute (5) Dyslipidemia: Code(s): E78.5 - Hyperlipidemia, unspecified Status: Acute (6) Gastroesophageal reflux disease: Code(s): K21.9 - Gastro-esophageal reflux disease without esophagitis Status: Acute (7) Obstructive sleep apnea: Code(s): G47.33 - Obstructive sleep apnea (adult) (pediatric) Status: Acute (8) Depression with anxiety: Code(s): F41.8 - Other specified anxiety disorders Status: Acute DS: Summary Hospital Course Hospital Course: This is a 49-year-old female smoker with coronary artery disease and history of stents, hypertension, hyperlipidemia, obstructive sleep apnea, gastroesophageal reflux disease, depression, and anxiety who presented to the emergency department via EMS for evaluation of chest pain. 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 She took 1 sublingual nitroglycerin without much benefit and thereafter she began having some numbness and tingling in her left arm and she felt short of breath and nauseated. She took 2 further doses of nitroglycerin without benefit and that did drop her blood pressure. The discomfort is similar to that she experienced prior to her stent to the left circumflex which was apparently in 2017. She has had a cardiac catheterization since that time done in [place] by her special education case manager affiliated with primary [facility]iology. At that time she was told she had 60 to 75% blockage of the left circumflex proximal to the previous stent and this was treated medically. She denies syncope, near syncope, pleuritic pain, sweats, vomiting, significant lower extremity edema, and calf pain. At the time my evaluation she is resting comfortably but does report still having intermittent pressure. In the ED: Vital signs on arrival include a blood pressure of 86/44, pulse 75, respiratory rate 18, SpO2 100% room air. Labs were significant for potassium of 3.1 and a troponin of less than 0.012. Chest x-ray was unremarkable. EKG showed sinus rhythm with sinus arrhythmia. She was given aspirin 324 mg she is being admitted in this setting for close monitoring due to her cardiac history. chest pain radiating to the left shoulder. EKG reviewed. Nitroglycerin x3 and did seem to help her discomfort but dropped her blood pressure. Initial troponin was within normal limits an EKG does not demonstrate any concerning ST segment changes. Serial troponins have been negative. She had been started on heparin drip per Cardiology for possible unstable angina. Status post cardiac catheter ization 03/26/2025 with stable findings patent stents. Continue dual anti- platelet therapy, statin, and beta-shaka. Imdur added for microvascular disease. Echocardiogram performed which showed normal EF no significant valvular abnormality mild concentric left ventricular hypertrophy. Blood pressure medication were adjusted with addition of Imdur. Hypokalemia replace and monitor Dyslipidemia GERD Anxiety depression Sleep apnea on CPAP Tobacco abuse DVT prophylaxis heparin drip Code status full code Time Spent with Patient Time attestation: Total time spent providing and/or coordinating discharge services: 35 minutes Exam Narrative: General: Nontoxic-appearing female sitting up in bed in no acute distress. HEENT: PERRL, EOMI. Sclera anicteric. Oral mucosa moist. Neck: Supple. Respiratory: Lungs are clear to auscultation bilaterally. Cardiovascular: Regular rate and rhythm with S1-S2. No murmur, rub, or gallop. Chest: No tenderness to palpation over the chest wall. Gastrointestinal: Abdomen is soft, nontender, and nondistended with positive bowel sounds. Skin: Warm and dry. No rash or lesions on limited exam. Extremities: No cyanosis, clubbing, or significant edema. Radial and pedal pulses intact. Neurological: Alert. Cranial nerves 2-12 are grossly intact. No gross focal deficits to casual conversation. Psychiatric: Pleasant and cooperative with appropriate mood and affect. DS: Data Data Completed and Pending Completed studies during hospitalization: Exam Type: CA echo doppler color flow Complete two-dimensional, color flow and Doppler transthoracic echocardiogram is performed. Staff Referring Physician: Leonard White MD Forepart Laster: Jacque Denny Attending Provider: Elroy Priest Summary 1. Complete two-dimensional, color flow and Doppler transthoracic echocardiogram is performed. 2. There is normal biventricular size and systolic function. 3. There are no significant valvular abnormalities. Left Ventricle The left ventricle is normal in size and systolic function. There is mild concentric left ventricular hypertrophy. The left ventricular ejection fraction is visually estimated to be 60-65%. Right Ventricle The right ventricle is normal in size and systolic function. Left Atria The left atrium is normal size. Right Atria The right atrium is normal size. Atrial Septum The atrial septum is not well visualized. Aortic Valve The aortic valve is trileaflet and opens well. There is no aortic regurgitation. Pulmonic Valve The pulmonic valve is not well visualized. There is no color Doppler evidence of pulmonic valve regurgitation. Mitral Valve The mitral valve is normal. Tricuspid Valve The tricuspid valve is normal. There is mild tricuspid regurgitation. Pericardium/Pleural Pericardium is normal in appearance with no evidence for significant pericardial effusion. Inferior Vena Cava Dilated inferior vena cava with <50% collapse upon inspiration consistent with elevated right atrial pressure, 8 mmHg. Aorta The aortic root at the level of the sinus of Valsalva measures 3.2 cm in diameter. Labs on day of discharge: Labs from last 24 hours 03/28/25 03:57 WBC 4.8 RBC 3.84 L Hgb 10.5 L Hct 33.6 L MCV 87.5 MCH 27.3 MCHC 31.3 L RDW 14.3 Plt Count 133 L MPV 12.1 H Immature Gran % (Auto) 0.4 Neut % (Auto) 63.5 Lymph % (Auto) 24.3 Glynn % (Auto) 8.3 Eos % (Auto) 2.5 Baso % (Auto) 1.0 Lymph # (Auto) 1.17 Glynn # (Auto) 0.4 Eos # (Auto) 0.1 Baso # (Auto) 0.1 Abs Immat Gran (auto) 0.02 Absolute Neuts (auto) 3.1 Absolute Nucleated RBC 0.000 Nucleated RBC % 0.0 Sodium 137 Potassium 3.2 L Chloride 104 Carbon Dioxide 29 Anion Gap 4 BUN 11 Creatinine 0.72 Estim Creat Clear Calc 92 Estimated GFR > 60 Glucose 125 H Calcium 8.4 Magnesium 1.9 Total Bilirubin 0.3 AST 17 ALT 13 Alkaline Phosphatase 72 Total Protein 6.0 L Albumin 3.4 L Procedures/Treatments: Cardiac Cath Procedure Note Date of procedure:: 03/26/25 Performing physician:: CATHETERIZATION LABORATORY REPORT Procedure Date: 03/26/2025 It Support Consultant: Frandy Staley M.D., [facility]? Referring Physician: Issa Clark M.D. ? Anesthesia: Versed and Fentanyl were ordered and given in my presence at 13:48, procedure ended at 14:06. Supervision of nurse monitored moderate sedation with Versed and Fentanyl was provided for 18 minutes. Total of Versed 1mg and Fentanyl 50mcg were administered by the [employer] MARQUITA Echavarria. Pre-op Diagnosis: Coronary artery disease Post-op Diagnosis: 1. Non-obstructive coronary artery disease with patent stent in the distal LCX. 2. Elevated left ventricular end-diastolic pressure of 31mmHg 3. LV angiogram shows normal LV systolic function. Procedure(s): 1. Moderate sedation 2. Ultrasound-guided access of the right radial artery 3. Coronary angiography 4. Left heart cath 5. LV angiogram Access Site: Right radial artery Brief History and Clinical Indications: Patient is a 49 year old female with CAD s/p prior LCX stent in 2018 who is referred for [facility] for unstable angina. All risks, benefits and alternatives to left heart catheterization with or without percutaneous coronary intervention was discussed at length with the patient. Risk of complications including but not limited to bleeding, infection, arrhythmia, stroke, worsening kidney function, blood loss, groin hematoma, limb loss, emergency coronary artery bypass grafting, and even were discussed with the patient and all questions were answered. The patient understood and wished to proceed. Time out called, patient name, date of , medical record number, allergies, procedure performed, identify It Support Consultant, patient and staff member concurred with accurate data, procedure carried on. Findings: LEFT HEART CATHETERIZATION FINDINGS: 1. Left main: The left main coronary artery is widely patent without any significant obstructive disease. 2. Left anterior descending: The LAD has luminal irregularities. Diagonal branches with luminal irregularities. 3. Left circumflex: The left circumflex artery has mild diffuse disease. Patent stent in the distal LCX. There is mild 40% disease proximal to the stent. OM branches with luminal irregularities. 4. Right coronary artery: The RCA is the dominant vessel. There is mild disease in the mid portion. No significant obstructive angiographic disease. 5. Left ventricle: A. End-diastolic pressure 31 mmHg. B. LV gram shows normal LV systolic function without appreciable wall motion abnormalities. C. No significant gradient across aortic valve on catheter pullback. Description of Procedure: Informed consent signed and placed in the chart. Patient transferred to cardiac cath tech room. Prepped and draped in usual sterile fashion. 2% lidocaine injected subcutaneously in right wrist area. 22-gauge venipuncture catheter used to access the right radial artery under ultrasound guidance. 6-FR slender sheath placed in right radial artery. Nitroglycerine and Verapamil were given intraarterial through the sheath. Versacore wire advanced under fluoroscopy 5F Ultra 4 diagnostic catheter engaged Left Main Coronary Artery. 5F Ultra 4 diagnostic catheter engaged Right Coronary Artery Multiple orthogonal angiogram obtained and reviewed 5F Pigtail diagnostic catheter crossed aortic valve to obtain LVEDP, LV angiogram obtained. Hemostasis was achieved by application of TR band. Disposition: Floor Plan: Patient with NOCAD with patent stent. Consider microvascular disease vs vasospasm for chest pain vs non-cardiac etiology. Will start Imdur. Stop Heparin drip. Can uptitrate Amlodipine and Metoprolol for antianginal therapy if heart rate/blood pressure allow. Will obtain echocardiogram. The above findings were discussed with the referring physician. Continue aggressive medical therapy and risk factor modification. ? Frandy Staley M.D. Interventional Cardiology Imaging Radiologist's impression: ITS Impressions Chest X-Ray 03/25/25 10:38 IMPRESSION: 1: NO ACUTE CARDIOPULMONARY DISEASE. Discharge Plan Discharge Attending physician on discharge: Jj Brown Consulting providers: Frandy Staley Discharging Clinician: Jj Brown Anticipated Discharge Date/Time: 03/28/25 15:04 Patient Disposition: Home Activity: as tolerated Diet: heart healthy Discharge Instructions: [facility] [address] [place] [address] DISCHARGE INSTRUCTIONS - POST RADIAL CATH Activity 1. No driving for 24 hours. 2. No lifting more than 5 lb with affected arm for 1 week. 3. May shower ( tomorrow) but no excessive soaking of affected hand/wrist (such as washing dishes), swimming pool or hot tub for 5 days. Wound Care 1. May remove arm board in the morning. 2. May remove gauze dressing in the morning and put Band-Aid over affected radial site. Keep site covered for 3 days. 3. Observe for redness, drainage, swelling or bleeding. Medications DO NOT STOP YOUR MEDICATIONS ONLY YOUR BELT WORKER CAN STOP THE FOLLOWING MEDICATIONS - PLEASE CALL THE OFFICE WITH QUESTIONS. *Aspirin *Ticagrelor (Brilinta) *Atorvastatin *Lisinopril or ARB *Metoprolol tartrate or succinate *Clopidogrel (Plavix) *Prasugrel (Effient) Important Reminders 1. Keep your stent card in your wallet at all times 2. Follow a heart healthy diet paying extra attention to cholesterol and fats. 3. Stay hydrated. 4. If you have chest pain unrelieved by rest or nitroglycerin (if prescribed) call 911 immediately. 5. If you miss one dose of Brilinta (if prescribed) take a tablet at the next time due. If you miss 2 doses take a tablet when you remember and resume at the next time due. *For any other questions please call the office at [phone]. Office hours are 8AM 4:30PM Friday through Friday. Patient Instructions: Antibiotic Form, Isosorbide Mononitrate (By mouth), Clopidogrel (By mouth), Diverticulosis Diet (GEN), Mediterranean Diet (GEN) Patient Language: Lithuanian Stand Alone Forms: General Discharge Information, Work/School Release IP Follow-up/Referrals: Frandy Staley MD [Physician] - 4 Weeks Ludmila Roajs MD [Primary Care Provider] - 1 Week Discharge Medications: New isosorbide mononitrate 30 mg Tablet Extended Release 24 Hr 30 mg PO QAM Qty: 30 0RF nicotine 14 mg/24 hr Patch 24 Hour 1 patch transdermal DAILY Qty: 30 0RF Continued aspirin [Adult Aspirin] 81 mg Tablet,Chewable 81 mg PO DAILY atorvastatin 20 mg Tablet 40 mg PO HS clopidogrel [Plavix] 75 mg Tablet 75 mg PO DAILY pantoprazole 40 mg Tablet,Delayed Release (Dr/Ec) 40 mg PO BID nitroglycerin 0.4 mg Tablet, Sublingual 0.4 mg SUBLINGUAL Q5M PRN (Reason: Chest Pain) albuterol sulfate 90 mcg/actuation HFA aerosol inhaler 1 - 2 puff INHALATION QID PRN (Reason: Shortness Of Breath Or Wheezing) fluoxetine 40 mg capsule 80 mg PO DAILY famotidine 20 mg tablet 20 mg PO DAILY metoprolol succinate 25 mg tablet extended release 24 hr 12.5 mg PO DAILY fluticasone propionate 50 mcg/actuation spray,suspension 2 spray INTRANASAL Q12H PRN (Reason: allergy symptoms) furosemide 20 mg tablet 20 mg PO DAILY Discontinued hydroxyzine HCl 50 mg tablet 50 mg PO TID amlodipine 5 mg tablet 5 mg PO DAILY fluoxetine 10 mg capsule 10 mg PO DAILY Date of admission: 03/25/25 12:46 Primary Care Provider: Ludmila Rojas Admitting Provider: Elroy Priest Attending physician on admission: Elroy Priest Condition: Stable
== END 2025-03-28 16:11 | disposition home or self-care (01) ==
LOC: ANHED 09:58 → ANHIMU 14:24 → ANHICU 03-29 07:13 → ANHIMU 03-29 07:13
PROVIDERS: General Practice; Internal Medicine; Physician Assistant; Specialist; Admitting Provider Internal Medicine; Emergency Provider Emergency Medicine; PCP Family Medicine; Visit Provider Internal Medicine
PROC: 4A023N7 Measurement of Cardiac Sampling and Pressure, Left Heart, Percutaneous Approach (ICD-10-PCS; CPT 93452; principal; 2025-03-26 13:30)
DX: R07.9 Chest pain, unspecified (principal); E87.6 Hypokalemia; I25.10 Atherosclerotic heart disease of native coronary artery without angina pectoris; I10 Essential (primary) hypertension; E78.5 Hyperlipidemia, unspecified; K21.9 Gastro-esophageal reflux disease without esophagitis; G47.33 Obstructive sleep apnea (adult) (pediatric); F41.8 Other specified anxiety disorders; F17.210 Nicotine dependence, cigarettes, uncomplicated; Z79.82 Long term (current) use of aspirin; Z79.51 Long term (current) use of inhaled steroids; Z79.899 Other long term (current) drug therapy; Z95.5 Presence of coronary angioplasty implant and graft; Z99.89 Dependence on other enabling machines and devices
CPT/HCPCS: 36415; 71046; 80048; 80053; 80061; 83036; 83690; 83735; 84484; 85025; 85027; 85055; 85610; 85730; 93005; 93306; 93458; 96374; 96375; 96376; 99285; A9270; C1769; C1887; C1894; G0378; G0379; J1644; J2003; J2250; J2270; J2305; J2405; J3010; J7040

== ENCOUNTER 2025-04-15 14:55 | Emergency (ER) | payer OTHER, SELFPAY ==
[2025-04-15 14:56] VITALS: BP 131/81; PULSE 77; RESP 18; TEMP 36.8; O2SAT 99
--- NOTE | 2025-04-15 15:14 | ED.DENTAL ---
HPI - Dental/Oral General Chief complaint: Dental/Oral Stated complaint: dental pain Time Seen by Provider: 04/15/25 15:14 Source: patient Mode of arrival: ambulatory Limitations: no limitations History of Present Illness HPI Narrative: 49 years old white female came with dental pain at the right upper and lower and left lower started for a while. Status post 1 tooth extraction 1 month ago and was told that the rest of the other teeth need to be taken out. She denies any fever, chills, nausea, vomiting, trouble swallowing or breathing or headache. Related Data Home Medications ?Medication ?Instructions ?Recorded ?Confirmed ?Last Taken ?Type atorvastatin 20 mg tablet 40 mg PO HS 09/29/19 03/25/25 03/24/25 21:00 History 80 mg clopidogrel 75 mg tablet (Plavix) 75 mg PO DAILY 09/29/19 03/25/25 03/25/25 09:00 History 75 mg pantoprazole 40 mg tablet,delayed 40 mg PO BID 09/29/19 03/25/25 03/25/25 09:00 History release 40 mg albuterol sulfate 90 mcg/actuation 1 - 2 puff inhalation QID PRN 11/19/20 03/25/25 Unknown History aerosol inhaler Shortness Of Breath Or Wheezing fluoxetine 40 mg capsule 80 mg PO DAILY 08/14/22 03/25/25 03/25/25 09:00 History 80 mg metoprolol succinate 25 mg 12.5 mg PO DAILY 08/14/22 03/25/25 03/25/25 09:00 History tablet,extended release 24 hr 12.5 mg famotidine 20 mg tablet 20 mg PO DAILY 10/05/22 03/25/25 03/25/25 09:00 History 20 mg aspirin 81 mg chewable tablet 81 mg PO DAILY 04/13/24 03/25/25 03/25/25 09:00 History 81 mg fluticasone propionate 50 2 spray intranasal Q12H PRN 03/25/25 03/25/25 Unknown History mcg/actuation nasal allergy symptoms spray,suspension furosemide 20 mg tablet 20 mg PO DAILY 03/25/25 03/25/25 03/25/25 09:00 History 20 mg Allergies Allergy/AdvReac Type Severity Reaction Status Date / Time ibuprofen (From Motrin) AdvReac Intermediate Nausea Verified 04/15/25 15:03 Review of Systems Review of Systems: All systems reviewed & are unremarkable except as noted in HPI and below PMFSH Past Medical History Medical History Depression with anxiety Gastroesophageal reflux disease Obstructive sleep apnea Coronary artery disease Hypertension Dyslipidemia Surgical History Surgical History History of section History of bilateral breast reduction surgery History of hysterectomy History of coronary artery stent placement left circumflex Social History Social History Social History: Surrogate medical decision maker: Dany Barbosa, significant other. Code status: Full code. Smoking packs per day: 0.5 Smoking cigarettes per day: 10.0 Years smoked: 33 Smoking pack-years: 16.50 Smoking status: Current every day smoker Tobacco type: cigarettes Alcohol intake: current Substance use: never Do You Feel Safe in your Home?: Yes Lack of Transportation: No Lack of Food: Never True Current Housing: I Have Housing Concerned About Future Housing: No Difficulty Paying Gas/Electric Bills: No Difficulty Paying for Meds: No Currently Unemployed: No Education: High School Diploma/GED Difficulty w/ Childcare or Family Care: No Living arrangements: with family Spiritual care concerns: No Exam Narrative: General appearance: Well-developed, well-nourished Skin: Normal color Head: Normocephalic, nontraumatic Eyes: Clear conjunctiva ENT: Oropharynx normal, ears normal, nose normal Dental caries in 3 teeth right upper right lower and left lower Neck: Supple, nontender Neurologic: Alert and oriented ?3, [employer] is normal as tested, no gross motor deficit Course Vital Signs Vital signs: Vital Signs Temperature 36.8 C 04/15/25 14:56 Pulse Rate 77 04/15/25 14:56 Respiratory Rate 18 04/15/25 14:56 Blood Pressure 131/81 04/15/25 14:56 Pulse Oximetry 99 04/15/25 14:56 Oxygen Delivery Room Air 04/15/25 14:56 Temperature 36.8 C 04/15/25 14:56 Pulse Rate 77 04/15/25 14:56 Respiratory Rate 18 04/15/25 14:56 Blood Pressure 131/81 04/15/25 14:56 Pulse Oximetry 99 04/15/25 14:56 Oxygen Delivery Room Air 04/15/25 14:56 MDM - Dental/Oral MDM Narrative Medical decision making narrative: dental decay, discharged on penicillin V K Differential Diagnosis Differential diagnosis: Likely dental caries, toothache and other Critical Care Time Critical Care Time Critical Care Time: No Discharge Plan Discharge Clinical Impression: Dental decay Patient Disposition: Home Condition: Stable Instructions: Antibiotic Form, Toothache (ED) Additional Instructions: Return if symptoms are worsening , call your dentist for appointment, take Tylenol as as needed for aches and pain, continue home medications. Patient Language: Azerbaijani Prescriptions: New penicillin V potassium 500 mg tablet 500 mg PO Q6H Qty: 40 0RF No Action aspirin 81 mg Tablet,Chewable 81 mg PO DAILY atorvastatin 20 mg Tablet 40 mg PO HS clopidogrel [Plavix] 75 mg Tablet 75 mg PO DAILY pantoprazole 40 mg Tablet,Delayed Release (Dr/Ec) 40 mg PO BID albuterol sulfate 90 mcg/actuation HFA aerosol inhaler 1 - 2 puff INHALATION QID PRN (Reason: Shortness Of Breath Or Wheezing) fluoxetine 40 mg capsule 80 mg PO DAILY famotidine 20 mg tablet 20 mg PO DAILY metoprolol succinate 25 mg tablet extended release 24 hr 12.5 mg PO DAILY fluticasone propionate 50 mcg/actuation spray,suspension 2 spray INTRANASAL Q12H PRN (Reason: allergy symptoms) furosemide 20 mg tablet 20 mg PO DAILY nicotine 14 mg/24 hr Patch 24 Hour 1 patch transdermal DAILY Qty: 30 0RF isosorbide mononitrate 30 mg Tablet Extended Release 24 Hr 30 mg PO QAM Qty: 30 0RF nitroglycerin 0.4 mg Tablet, Sublingual 0.4 mg SUBLINGUAL Q5M PRN (Reason: Chest Pain) Qty: 30 0RF Follow-up/Referrals: Ludmila Rojas MD [Primary Care Provider] - Stand Alone Forms: Work/School Release IP
== END 2025-04-15 15:25 | disposition home or self-care (01) ==
LOC: CHSED 15:28
PROVIDERS: Emergency Provider Emergency Medicine; PCP Family Medicine
DX: K02.9 Dental caries, unspecified (principal); I25.10 Atherosclerotic heart disease of native coronary artery without angina pectoris; E78.5 Hyperlipidemia, unspecified; I10 Essential (primary) hypertension; F17.210 Nicotine dependence, cigarettes, uncomplicated
CPT/HCPCS: 99283